=== PATIENT | female | born 1955 | race Caucasian/White ===

== ENCOUNTER 2020-04-02 19:51 | Emergency (ER) | payer BC, SELFPAY ==
[2020-04-02 20:11] VITALS: BP 165/84; PULSE 86; RESP 18; TEMP 36; O2SAT 96; BMI 34.9
[2020-04-02 20:29] VITALS: BP 164/66; PULSE 80; RESP 18; TEMP 36.7; O2SAT 94
--- NOTE | 2020-04-02 20:37 | ED_ITS ---
HPI - Altered Mental Status General Chief Complaint: Altered Mental Status Stated Complaint: high bs Time Seen by Provider: 04/02/20 20:35 Source: patient Mode of arrival: ambulatory Limitations: no limitations History of Present Illness HPI narrative: patient with no known past medical history does not take any me dication pretty healthy otherwise complaining of occipital headache deliver fogginess and had difficulty in getting the words out 2 days ago patient under lot of stress lately. Patient denies any nausea/ vomiting /cough /shortness of breath patient never had headache in the past had poor sleep also MD complaint: confusion Severity: mild Consistency of symptoms: waxing and waning Related Data Home Medications Medication Instructions Recorded Confirmed No Known Home Meds 04/02/20 04/02/20 Allergies Allergy/AdvReac Type Severity Reaction Status Date / Time acetaminophen [Percocet] AdvReac Unknown N/V Verified 04/02/20 20:17 oxycodone [Percocet] AdvReac Unknown N/V Verified 04/02/20 20:17 Review of Systems Review of Systems: REVIEW OF SYSTEMS: Pertinent positives and negatives are stated above in the history. GEN: no fevers, chills, fatigue HEENT: no nasal congestion, sore throat, ear pain NEURO: no focal weakness PULM: no cough, shortness of breath CV: no chest pain, palpitations, LE edema ABD: no abdominal pain, nausea, vomiting, diarrhea : no dysuria, urgency, frequency SKIN: no rash ROS otherwise negative x 10 PMFSH Social History Social History Alcohol intake: current Alcohol intake frequency: a few times a week Alcohol type: beer and wine Smoking Status: Light tobacco smoker Smoked in Last 30 Days: Yes Substance Use Type: Marijuana Substance Use Frequency: Socially Last Used Substance: Days (ago) Any prior treatment program specific to substance use: No Advance Directives: No Advance Directives Information Provided: No Physical Exam Vital Signs: Vital Signs: Last Vital Signs Temp 98.1 F 04/02/20 20:29 Pulse 71 04/02/20 22:58 Resp 14 04/02/20 22:58 BP 127/68 04/02/20 22:58 Pulse Ox 95 04/02/20 22:58 Body Mass Index 34.9 VITAL SIGNS: Reviewed. GENERAL: Well developed, well nourished, in no acute distress. HEAD: Normocephalic/atraumatic, EYES: PERRLA No pallor/icterus noted OROPHARYNX: Oral mucosa moist no oral lesions NECK: Supple, no adenopathy LUNGS: Normal breath sounds. No adventitious sounds or accessory muscle use CARDIOVASCULAR: Regular rate and rhythm without noted murmurs, no JVD or lower extremity edema. ABDOMEN: Soft, non-tender, non-distended with normal bowel sounds. No rigidity. No guarding. No palpable masses or hernias noted MUSCULOSKELETAL: No tenderness, deformities, EXTREMITIES: No cyanosis or edema. SKIN: no rashes, ulcerations, jaundice, pallor, or petechiae NEUROLOGIC: Alert and oriented x 3. Strength and sensation to light touch were grossly intact normal speech NIH Stroke Scale Internal: Initial- Upon Arrival Level of Consciousness: Alert Level of Consciousness Questions: Answers both questions correctly Level of Consciousness Commands: Performs both tasks correctly Best Gaze: Normal Visual: No visual loss Facial Palsy: Normal Motor Arm (Right): No drift Motor Arm (Left): No drift Motor Leg (Right): No drift Motor Leg (Left): No drift Limb Ataxia: Absent Sensory: Normal Best Language: No aphasia Dysarthia: Normal Extinction and Inattention: No abnormality Score: 0 MDM - Altered Mental Status MDM Narrative Medical decision making narrative: patient with nonspecific confusion slurring of speech CTA head and neck is negative for any posterior circulation CVA. Her blood workup was also negative patient's symptoms likely from the stress /anxiety patient advised to follow with PCP Medical Records Attestation: I reviewed the patient's medical records. Lab Data Attestation: I reviewed the patient's lab results. Result diagrams: 04/02/20 20:58 04/02/20 20:58 Labs: Lab Results 04/02/20 04/02/20 04/02/20 Range/Units 20:58 20:58 20:58 WBC 7.7 (4.8-10.8) X10*3/uL RBC 4.63 (4.20-5.50) X10*6/uL Hgb 14.5 (12.0-16.0) g/dl Hct 42.5 (37-47) % MCV 91.8 (80-98) fL MCH 31.3 (27.0-33.0) pg MCHC 34.1 (31.0-35.0) g/dl RDW 11.8 (11.0-16.0) % Plt Count 319 (160-400) X10*3/uL MPV 10.0 (9.4-12.3) fL Immature Gran % (Auto) 0.3 (0.0-0.4) % Neut % (Auto) 63.4 (45-73) % Lymph % (Auto) 26.1 (20-40) % [place] % (Auto) 8.4 (2-11) % Eos % (Auto) 1.4 (0-4) % Baso % (Auto) 0.4 (0-2) % Lymph # (Auto) 2.0 (1.2-4.9) X10*3/uL [place] # (Auto) 0.6 (0.1-1.2) X10*3/uL Eos # (Auto) 0.1 (0.0-0.4) X10*3/uL Baso # (Auto) 0.0 (0.0-0.2) X10*3/uL Abs Immat Gran (auto) 0.02 (0.00-0.03) X10*3/uL Absolute Neuts (auto) 4.9 (2.0-8.3) X10*3/uL Absolute Nucleated RBC 0.000 (0.0-0.012) X10*3/uL Nucleated RBC % (auto) 0.0 (0.0-0.2) /100WBC PT 10.9 (10.8-13.0) SEC INR 0.9 (0.9-1.1) Sodium 138 (135-145) mmol/L Potassium 4.0 (3.3-5.1) mmol/l Chloride 104 (96-108) mmol/L Carbon Dioxide 25 (22-29) mmol/L Anion Gap 13 (12-20) BUN 13 (9-16) mg/dL Creatinine 0.77 (0.5-1.4) mg/dL Estim Creat Clear Calc 70.6 Estimated GFR > 60 Random Glucose 175 H (60-115) mg/dL Calcium 8.9 (8.4-10.2) mg/dL Total Bilirubin 0.3 (0.0-1.0) mg/dL Direct Bilirubin 0.2 (0.0-0.5) mg/dL AST 28 (5-31) U/L ALT 34 H (0-31) U/L Alkaline Phosphatase 128 H (39-117) U/L Total Protein 7.2 (6.5-8.0) g/dL Albumin 4.2 (3.5-5.0) g/dL Urine Color Urine Appearance Urine pH (5.0-8.0) Ur Specific [place] (1.005-1.025) Urine Protein (NEG-TRACE) MG/DL Urine Glucose (UA) (NEG) MG/DL Urine Ketones (NEG) MG/DL Urine Blood (NEG) Urine Nitrite (NEG) Ur Leukocyte Esterase (NEG) Urine RBC (0) /HPF Urine WBC (0-4) /HPF Ur Squamous Epith Cells /LPF Urine Bacteria /LPF 04/02/20 Range/Units 22:53 WBC (4.8-10.8) X10*3/uL RBC (4.20-5.50) X10*6/uL Hgb (12.0-16.0) g/dl Hct (37-47) % MCV (80-98) fL MCH (27.0-33.0) pg MCHC (31.0-35.0) g/dl RDW (11.0-16.0) % Plt Count (160-400) X10*3/uL MPV (9.4-12.3) fL Immature Gran % (Auto) (0.0-0.4) % Neut % (Auto) (45-73) % Lymph % (Auto) (20-40) % [place] % (Auto) (2-11) % Eos % (Auto) (0-4) % Baso % (Auto) (0-2) % Lymph # (Auto) (1.2-4.9) X10*3/uL [place] # (Auto) (0.1-1.2) X10*3/uL Eos # (Auto) (0.0-0.4) X10*3/uL Baso # (Auto) (0.0-0.2) X10*3/uL Abs Immat Gran (auto) (0.00-0.03) X10*3/uL Absolute Neuts (auto) (2.0-8.3) X10*3/uL Absolute Nucleated RBC (0.0-0.012) X10*3/uL Nucleated RBC % (auto) (0.0-0.2) /100WBC PT (10.8-13.0) SEC INR (0.9-1.1) Sodium (135-145) mmol/L Potassium (3.3-5.1) mmol/l Chloride (96-108) mmol/L Carbon Dioxide (22-29) mmol/L Anion Gap (12-20) BUN (9-16) mg/dL Creatinine (0.5-1.4) mg/dL Estim Creat Clear Calc Estimated GFR Random Glucose (60-115) mg/dL Calcium (8.4-10.2) mg/dL Total Bilirubin (0.0-1.0) mg/dL Direct Bilirubin (0.0-0.5) mg/dL AST (5-31) U/L ALT (0-31) U/L Alkaline Phosphatase (39-117) U/L Total Protein (6.5-8.0) g/dL Albumin (3.5-5.0) g/dL Urine Color YELLOW Urine Appearance CLEAR Urine pH 5.5 (5.0-8.0) Ur Specific [place] <= 1.005 (1.005-1.025) Urine Protein NEG (NEG-TRACE) MG/DL Urine Glucose (UA) NEG (NEG) MG/DL Urine Ketones NEG (NEG) MG/DL Urine Blood 1+ H (NEG) Urine Nitrite NEG (NEG) Ur Leukocyte Esterase NEG (NEG) Urine RBC 0-2 (0) /HPF Urine WBC 0 (0-4) /HPF Ur Squamous Epith Cells 1+ /LPF Urine Bacteria TRACE /LPF Discharge Plan Discharge Clinical Impression: Anxiety Headache Qualifiers: Headache type: tension-type Headache chronicity pattern: acute headache Intractability: not intractable Qualified Code(s): G44.209 - Tension-type headache, unspecified, not intractable Patient Disposition: Home, Self-Care Instructions: Acute Headache (ED), Anxiety (ED) Additional Instructions: at this time etiology of headache is not very clear likely from stress. Relax take Tylenol for headaches follow with PCP Prescriptions: No Action No Known Home Meds RF: 0
--- NOTE | 2020-04-02 20:38 | ECG_ITS ---
Test Reason : WEAKNESS Blood Pressure : / mmHG Vent. Rate : 077 BPM Atrial Rate : 077 BPM P-R Int : 148 ms QRS Dur : 082 ms QT Int : 402 ms P-R-T Axes : 066 072 044 degrees QTc Int : 454 ms Normal sinus rhythm Normal ECG No previous ECGs available Referred By: Rohan Chang Electronically Signed By:NIMCO SANTANA
--- NOTE | 2020-04-02 20:45 | CT_ITS ---
EXAMINATION: CT ANGIOGRAM HEAD CT ANGIOGRAM NECK CLINICAL INFORMATION: Dizziness. COMPARISON: None available. TECHNIQUE: Initial noncontrast beeswax bleacher imaging of the head and neck was performed. Noncontrast head CT was also performed. Test bolus sequences followed by intravenous administration 70 mL of Omnipaque 350. Helical imaging was performed in the axial plane from the aortic arch to the skull vertex. Delayed postcontrast imaging of the head was also performed. The data was processed at the histotechnologist supervisor's workstation for generation of MIP sequences. Angled MIPs and volume rendered reformatted images were also generated at an offline 3D workstation. Stenoses are assessed in accordance with NASCET criteria unless otherwise indicated. DLP: 2170 mGy-cm FINDINGS: CT Head: There is no evidence of acute intracranial hemorrhage or edematous territorial infarction. A few foci of hypoattenuation in the periventricular and deep white matter are consistent with mild microangiopathy. [place]-white matter differentiation is preserved. Proportional prominence of the ventricles and sulcal spaces. No evidence for obstructive hydrocephalus. No abnormal mass effect or midline shift. No extra-axial fluid collections. No pathologic intra-axial enhancement or regional oligemia. No acute soft tissue or osseous abnormalities. The mastoid air cells and paranasal sinuses are clear. CT Neck: The thyroid gland and remaining cervical soft tissues are within normal limits. C2-C3 appear congenitally partially fused. Instrumented anterior fusion of C5-C6. Advanced degenerative disc disease at C6-C7 with prominent disc-osteophyte complex. Mild degenerative anterolisthesis of C3 on C4. Moderate multilevel facet and uncovertebral joint arthropathy leads to osseous encroachment on the neural foramina from C3-T1. CT Upper Chest: The visualized lung apices and upper mediastinum are within normal limits. Neck CTA: Aortic Arch: Normal contour and caliber. Classic 3 vessel branching pattern of the aortic arch. Great Vessel Origins: No significant stenosis of the branch origins. Right Common Carotid Artery: Normal opacification without focal stenosis or occlusion. Cervical Right Internal Carotid Artery: Normal opacification without focal stenosis or occlusion. Left Common Carotid Artery: Normal opacification without focal stenosis or occlusion. Cervical Left Internal Carotid Artery: Normal opacification without focal stenosis or occlusion. Cervical Right Vertebral Artery: Mildly dominant. Normal opacification without focal stenosis or occlusion. Cervical Left Vertebral Artery: Normal opacification without focal stenosis or occlusion. Brain CTA: Intracranial Internal Carotid Arteries: Normal contrast opacification of the petrous, cavernous, paraophthalmic, and supraclinoid segments of the internal carotid arteries without focal stenosis. Right Anterior Cerebral Artery: Normal A1 segment. Normal opacification of the distal segments of the ROJAS. Left Anterior Cerebral Artery: Normal A1 segment. Normal opacification of the distal segments of the ROJAS. Anterior Communicating Artery: Normal. Right Middle Cerebral Artery: Normal opacification of the M1 segment of the MCA without focal stenosis or occlusion. Normal arborization of the distal segments. Left Middle Cerebral Artery: Normal opacification of the M1 segment of the MCA without focal stenosis or occlusion. Normal arborization of the distal segments. Right Vertebral Artery: The V4 segment is mildly diminutive. Otherwise, normal opacification. Normal opacification of the proximal segments of the posterior inferior cerebellar artery. Left Vertebral Artery: The V4 segment is mildly diminutive. Otherwise, normal opacification. Normal opacification of the proximal segments of the posterior inferior cerebellar artery. Basilar Artery: The basilar artery is moderately diminutive throughout its course without focal occlusion. Normal appearance of the proximal superior cerebellar arteries. Right Posterior Cerebral Artery: The P1 segment is diminutive. origin of the MIMEOGRAPH OPERATOR with robust opacification of the posterior communicating artery. Normal opacification of the distal segments of the MIMEOGRAPH OPERATOR. Left Posterior Cerebral Artery: The P1 segment is diminutive. origin of the MIMEOGRAPH OPERATOR with robust opacification of the posterior communicating artery. Normal opacification of the distal segments of the MIMEOGRAPH OPERATOR. Dominant right-sided transverse/sigmoid sinus. Otherwise, normal opacification of the superior sagittal, straight, transverse, and sigmoid sinuses. CT/CT angio head neck IMPRESSION: 1. No evidence of acute intracranial hemorrhage or edematous territorial infarction. 2. CTA of the head and neck without proximal occlusion or flow-limiting stenosis. 3. origins of the bilateral support merchandiser. In this setting, the intracranial vertebrobasilar system is relatively diminutive in nature. However, there is no demonstrated focal occlusion are regions of oligemia on this exam. 4. 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
--- NOTE | 2020-04-02 20:45 | PC.NURSE ---
dr guerra at bedside plan is for a head ct. pt mcwilliams no weakness noted, darcie equal. pt placed on the monitor nsr at this time. pt talking in clear sentences, pt states she does feel nervouse being in the hospital. pt words are clear. hand grasp equal darcie.
--- NOTE | 2020-04-02 20:56 | PC.NURSE ---
20 l ac with no complications. rainbow labs drawn.
[2020-04-02 21:07] LABS: MANUAL DIFF FLAG NO
[2020-04-02 21:09] LABS: Basophils Percent Auto 0.4 % (0-2); Eosinophils Absolute Auto 0.1 X10*3/uL (0.0-0.4); Eosinophils Percent Auto 1.4 % (0-4); Hematocrit 42.5 % (37-47); Hemoglobin 14.5 g/dl (12.0-16.0); Imm Gran Abs Auto 0.02 X10*3/uL (0.00-0.03); Imm Gran Pct Auto 0.3 % (0.0-0.4); Lymphocytes Percent Auto 26.1 % (20-40); Mean Corpuscular HGB Conc 34.1 g/dl (31.0-35.0); Mean Corpuscular Hemoglobin 31.3 pg (27.0-33.0); Mean Corpuscular Volume 91.8 fL (80-98); Monocytes Absolute Auto 0.6 X10*3/uL (0.1-1.2); Monocytes Percent Auto 8.4 % (2-11); Neutrophils Absolute Auto 4.9 X10*3/uL (2.0-8.3); Neutrophils Percent Auto 63.4 % (45-73); Platelet Count 319 X10*3/uL (160-400); Red Blood Count 4.63 X10*6/uL (4.20-5.50); Red Cell Distribution Width 11.8 % (11.0-16.0); White Blood Count 7.7 X10*3/uL (4.8-10.8)
[2020-04-02 21:16] LABS: INTERNATIONAL NORM RATIO 0.9 (0.9-1.1); Prothrombin Time 10.9 SEC (10.8-13.0)
[2020-04-02] MEDS: iohexoL 350 MG/ML 100 ML INFUS..BTL IV (21:21)
[2020-04-02 21:24] VITALS: BP 162/85; PULSE 75; RESP 16; O2SAT 96
--- NOTE | 2020-04-02 21:25 | PC.NURSE ---
pt neuro remain intact equal darcie movements, speach clear and alert and oriented x3. pt able to recall these 4 words with no difficulty, dog, cat, mouse, ocean. ekg being done at this time.
[2020-04-02 21:48] LABS: Alanine Aminotransferase 34 U/L (0-31); Albumin Level 4.2 g/dL (3.5-5.0); Alkaline Phosphatase 128 U/L (39-117); Anion Gap 13 (12-20); Aspartate Amino Transferase 28 U/L (5-31); Bilirubin Direct 0.2 mg/dL (0.0-0.5); Bilirubin Total 0.3 mg/dL (0.0-1.0); Blood Urea Nitrogen 13 mg/dL (9-16); Calcium 8.9 mg/dL (8.4-10.2); Carbon Dioxide 25 mmol/L (22-29); Chloride 104 mmol/L (96-108); Creatinine Clr Calc Pharmacy 70.6; Estimated Glomerular Filt Rate > 60; Glucose Random 175 mg/dL (60-115); Sodium 138 mmol/L (135-145); Total Protein 7.2 g/dL (6.5-8.0)
[2020-04-02 22:58] VITALS: BP 127/68; PULSE 71; RESP 14; O2SAT 95
[2020-04-02 23:00] LABS: Glucose Urine UA NEG (NEG); Leukocyte Esterase Urine NEG (NEG); Nitrite Urine NEG (NEG); PH 5.5 (5.0-8.0); Specific Gravity - Urine <= 1.005 (1.005-1.025); Urine Blood 1+ (NEG); Urine Ketones NEG (NEG); Urine Protein NEG (NEG-TRACE)
[2020-04-02 23:02] LABS: Appearance Urine CLEAR; Color Urine YELLOW
[2020-04-02 23:06] LABS: Bacteria Urine TRACE /LPF; RBC Urine 0-2 /HPF (0); Squamous Epithelial Cell Urine 1+ /LPF; WBC Urine 0 /HPF (0-4)
== END 2020-04-02 23:22 | disposition home or self-care (01) ==
PROVIDERS: Emergency Provider Internal Medicine; PCP Internal Medicine
DX: G44.209 Tension-type headache, unspecified, not intractable (principal); R41.82 Altered mental status, unspecified; F12.90 Cannabis use, unspecified, uncomplicated; F41.1 Generalized anxiety disorder; F43.0 Acute stress reaction; F17.200 Nicotine dependence, unspecified, uncomplicated; Z71.6 Tobacco abuse counseling
CPT/HCPCS: 36415; 70496; 70498; 80048; 80076; 81001; 85025; 85610; 93005; 99284; Q9967

== ENCOUNTER 2020-12-24 09:53 | Outpatient (REF) | payer MEDICARE, SELFPAY ==
[2020-12-24 11:23] LABS: MANUAL DIFF FLAG NO
[2020-12-24 11:41] LABS: Basophils Percent Auto 0.5 % (0-2); Eosinophils Absolute Auto 0.1 X10*3/uL (0.0-0.4); Eosinophils Percent Auto 1.6 % (0-4); Hematocrit 44.2 % (37-47); Hemoglobin 14.6 g/dl (12.0-16.0); Imm Gran Abs Auto 0.02 X10*3/uL (0.00-0.03); Imm Gran Pct Auto 0.3 % (0.0-0.4); Lymphocytes Absolute Auto 2.3 X10*3/uL (1.2-4.9); Lymphocytes Percent Auto 30.3 % (20-40); Mean Corpuscular Hemoglobin 30.6 pg (27.0-33.0); Mean Corpuscular Volume 92.7 fL (80-98); Mean Platelet Volume 10.5 fL (9.4-12.3); Monocytes Absolute Auto 0.6 X10*3/uL (0.1-1.2); Monocytes Percent Auto 7.6 % (2-11); Neutrophils Absolute Auto 4.6 X10*3/uL (2.0-8.3); Neutrophils Percent Auto 59.7 % (45-73); Platelet Count 377 X10*3/uL (160-400); Red Blood Count 4.77 X10*6/uL (4.20-5.50); Red Cell Distribution Width 11.9 % (11.0-16.0); White Blood Count 7.6 X10*3/uL (4.8-10.8)
[2020-12-24 12:21] LABS: TSH reflex Free T4 1.15 uIU/mL (0.32-4.0)
[2020-12-24 12:48] LABS: Alanine Aminotransferase 38 U/L (0-31); Albumin Level 4.5 g/dL (3.5-5.0); Alkaline Phosphatase 138 U/L (39-117); Anion Gap 14 (12-20); Aspartate Amino Transferase 22 U/L (5-31); Bilirubin Total 0.8 mg/dL (0.0-1.0); Blood Urea Nitrogen 13 mg/dL (9-16); Calcium 9.8 mg/dL (8.4-10.2); Carbon Dioxide 25 mmol/L (22-29); Chloride 104 mmol/L (96-108); Cholesterol 240 mg/dL; Estimated Glomerular Filt Rate > 60; Glucose Fasting 101 mg/dL (60-99); HDL Cholesterol 62 mg/dL; LDL Cholesterol Calculated 141 mg/dl; Potassium 4.5 mmol/L (3.3-5.1); Sodium 138 mmol/L (135-145); Total Protein 7.8 g/dL (6.5-8.0); Triglycerides 186 mg/dL
== END 2020-12-24 09:54 | disposition home or self-care (01) ==
LOC: HO.HMGCLDS 09:53
PROVIDERS: PCP Internal Medicine; Visit Provider Internal Medicine
DX: Z00.01 Encounter for general adult medical examination with abnormal findings (principal); E66.09 Other obesity due to excess calories; F41.1 Generalized anxiety disorder
CPT/HCPCS: 36415; 80053; 80061; 84443; 85025

== ENCOUNTER 2021-01-02 08:26 | Outpatient (REF) | payer MEDICARE, SELFPAY ==
--- NOTE | ~2021-01-02 | US_ITS ---
EXAMINATION: US ABDOMEN COMPLETE CLINICAL INFORMATION: Elevated LFTs. COMPARISON: None TECHNIQUE: Real-time imaging of the abdominal viscera. FINDINGS: PANCREAS: Head and body the pancreas is normal-appearing. The tail is not well visualized due to bowel gas. ABDOMINAL AORTA: The proximal, mid, and distal segments are normal in caliber. INFERIOR VENA CAVA: Visualized portions are normal. LIVER: The liver is normal in size. The liver contour is normal. Liver echotexture is increased. No focal hepatic lesion. There is no intrahepatic biliary duct dilatation seen. GALLBLADDER: Normal. The gallbladder is physiologically distended without evidence of stones, sludge, polyps, wall thickening or pericholecystic fluid. COMMON BILE DUCT: Normal in caliber measuring 0.5 cm in diameter. RIGHT KIDNEY: There are 2 cysts measuring 5 x 4 x 5 cm in the upper pole and 1.5 x 1.5 x 1.7 cm in the midpole. No hydronephrosis or renal calculi. The kidney measures 11.4 cm in maximum dimension. LEFT KIDNEY: There are 3 left renal cysts. There is a simple cyst measuring 1.7 cm in the upper pole. There is a slightly complex cyst with single thin septation measuring 1.3 x 2 x 1.2 cm in the upper pole. There is a 1 x 0.9 x 0.7 cm cyst with focus of wall calcification in the midpole. No hydronephrosis or renal calculi. The kidney measures 10.4 cm in maximum dimension. SPLEEN: Normal. The spleen measures 9.3 cm in maximum dimension. FREE FLUID: None. US/US abdomen complete IMPRESSION: Echogenic liver probably representing fatty infiltration. Bilateral renal cysts. Limited visualization of the tail of the pancreas.
== END 2021-01-02 08:27 | disposition home or self-care (01) ==
LOC: HO.HMGCX 08:26
PROVIDERS: PCP Internal Medicine; Visit Provider Internal Medicine
DX: R79.89 Other specified abnormal findings of blood chemistry (principal)
CPT/HCPCS: 76700

== ENCOUNTER 2021-02-03 07:36 | Outpatient (REF) | payer MEDICARE, SELFPAY ==
--- NOTE | ~2021-02-03 | MM_ITS ---
EXAMINATION: MM SCREENING DIGITAL BREAST TOMOSYNTHESIS, BILATERAL CLINICAL INFORMATION: Screening. Asymptomatic. The lifetime risk of breast cancer based on the Tyrer-Cuzick Model is 4%. COMPARISON: Mammography: 01/13/2017, 03/15/2015; outside mammography 01/19/2011 ([facility]). TECHNIQUE: Digital breast tomosynthesis is performed in both the craniocaudal and mediolateral oblique views along with computer-aided detection (CAD). Synthesized 2D images are generated from the tomosynthesis. FINDINGS: There are scattered areas of fibroglandular density (ACR BI-RADS breast composition Category b). Parenchymal pattern is similar to prior studies. There is no developing density or interval mass or architectural abnormality. No abnormal calcifications. The axilla are unremarkable. The right MLO view has a small dermal lesion with some overlying calcifications posterior outer breast, sharda slice 72/72, similar to prior exam 2017. MM/MM tomosynthesis screening BI IMPRESSION: 1. No mammographic evidence of malignancy. 2. Dermal lesion overlying posterior outer right breast. ASSESSMENT: BI-RADS 2: Benign RECOMMENDATION: Routine annual mammography screening. This patient's information was entered into a reminder system with a target due date for their next mammogram.
== END 2021-02-03 07:37 | disposition home or self-care (01) ==
LOC: HO.MAMMO 07:36
PROVIDERS: Visit Provider Internal Medicine
DX: Z12.31 Encounter for screening mammogram for malignant neoplasm of breast (principal)
CPT/HCPCS: 77063; 77067

== ENCOUNTER 2021-02-24 08:32 | Outpatient (REF) | payer MEDICARE, SELFPAY ==
[2021-02-26 13:30] LABS: HPV mRNA E6/E7 rflx Not Detected (Not Detected)
== END 2021-02-24 08:33 | disposition home or self-care (01) ==
LOC: HO.LAB 08:32
PROVIDERS: PCP Internal Medicine; Visit Provider Advanced Practice Midwife
DX: Z01.419 Encounter for gynecological examination (general) (routine) without abnormal findings (principal); Z11.51 Encounter for screening for human papillomavirus (HPV)
CPT/HCPCS: 87624; 88142

== ENCOUNTER 2022-01-15 07:27 | Outpatient (REF) | payer MEDICARE, SELFPAY ==
[2022-01-15 11:13] LABS: MANUAL DIFF FLAG NO
[2022-01-15 11:24] LABS: Basophils Percent Auto 0.6 % (0-2); Eosinophils Absolute Auto 0.1 X10*3/uL (0.0-0.4); Hematocrit 43.2 % (37.0-47.0); Hemoglobin 14.4 g/dl (12.0-16.0); Imm Gran Abs Auto 0.02 X10*3/uL (0.00-0.03); Imm Gran Pct Auto 0.3 % (0.0-0.4); Lymphocytes Absolute Auto 1.8 X10*3/uL (1.2-4.9); Lymphocytes Percent Auto 28.4 % (20-40); Mean Corpuscular HGB Conc 33.3 g/dl (31.0-35.0); Mean Corpuscular Volume 93.1 fL (80.0-98.0); Mean Platelet Volume 10.7 fL (9.4-12.3); Monocytes Absolute Auto 0.7 X10*3/uL (0.1-1.2); Neutrophils Absolute Auto 3.8 x10*3/uL (2.0-8.3); Neutrophils Percent Auto 58.7 % (45-73); Platelet Count 358 X10*3/uL (160-400); Red Blood Count 4.64 X10*6/uL (4.20-5.50); Red Cell Distribution Width 11.9 % (11.0-16.0); White Blood Count 6.5 X10*3/uL (4.8-10.8)
[2022-01-15 11:30] LABS: Estimated Average Glucose 157 mg/dL; Hemoglobin A1c % 7.1 %
[2022-01-15 11:46] LABS: Alanine Aminotransferase 37 U/L (0-31); Albumin Level 4.5 g/dL (3.5-5.0); Alkaline Phosphatase 120 U/L (39-117); Anion Gap 15 (12-20); Aspartate Amino Transferase 36 U/L (5-31); Bilirubin Total 0.5 mg/dL (0.0-1.0); Blood Urea Nitrogen 12 mg/dL (9-16); Calcium 9.6 mg/dL (8.4-10.2); Carbon Dioxide 25 mmol/L (22-29); Chloride 102 mmol/L (96-108); Cholesterol 241 mg/dL; Estimated Glomerular Filt Rate > 60; Glucose Fasting 149 mg/dL (60-99); HDL Cholesterol 58 mg/dL; LDL Cholesterol Calculated 135 mg/dl; Potassium 4.3 mmol/L (3.3-5.1); Sodium 138 mmol/L (135-145); Total Protein 7.7 g/dL (6.5-8.0); Triglycerides 242 mg/dL
[2022-01-15 12:09] LABS: TSH reflex Free T4 1.83 uIU/mL (0.32-4.0)
== END 2022-01-15 07:28 | disposition home or self-care (01) ==
LOC: HO.HMGCLDS 07:27
PROVIDERS: PCP Internal Medicine; Visit Provider Internal Medicine
DX: Z00.01 Encounter for general adult medical examination with abnormal findings (principal); E66.09 Other obesity due to excess calories; R73.01 Impaired fasting glucose; R79.89 Other specified abnormal findings of blood chemistry
CPT/HCPCS: 36415; 80053; 80061; 83036; 84443; 85025

== ENCOUNTER 2022-02-10 07:14 | Outpatient (REF) | payer MEDICARE, SELFPAY ==
--- NOTE | ~2022-02-10 | MM_ITS ---
EXAMINATION: MM SCREENING DIGITAL BREAST TOMOSYNTHESIS, BILATERAL CLINICAL INFORMATION: Screening. Asymptomatic. The lifetime risk of breast cancer based on the Tyrer-Cuzick Model is 6%. COMPARISON: Mammography: 02/03/2021, 01/13/2017, 03/15/2015 TECHNIQUE: Digital breast tomosynthesis is performed in both the craniocaudal and mediolateral oblique views along with computer-aided detection (CAD). Synthesized 2D images are generated from the tomosynthesis. FINDINGS: There are scattered areas of fibroglandular density (ACR BI-RADS breast composition Category b). There are no significant masses, abnormal calcifications, or other abnormalities. There is a dermal lesion again noted posterior outer right breast. The parenchymal pattern is similar to prior studies. No significant changes. MM/MM tomosynthesis screening BI IMPRESSION: No mammographic evidence of malignancy. ASSESSMENT: BI-RADS 2: Benign RECOMMENDATION: Routine annual mammography screening. This patient's information was entered into a reminder system with a target due date for their next mammogram.
== END 2022-02-10 07:15 | disposition home or self-care (01) ==
LOC: HO.MAMMO 07:14
PROVIDERS: PCP Internal Medicine; Visit Provider Internal Medicine
DX: Z12.31 Encounter for screening mammogram for malignant neoplasm of breast (principal)
CPT/HCPCS: 77063; 77067

== ENCOUNTER 2022-05-11 11:23 | Outpatient (REF) | payer MEDICARE, SELFPAY ==
[2022-05-11 14:11] LABS: Estimated Average Glucose 163 mg/dL; Hemoglobin A1c % 7.3 %
[2022-05-11 14:15] LABS: Alanine Aminotransferase 22 U/L (0-31); Albumin Level 4.2 g/dL (3.5-5.0); Alkaline Phosphatase 102 U/L (39-117); Anion Gap 13 (12-20); Aspartate Amino Transferase 22 U/L (5-31); Bilirubin Total 0.5 mg/dL (0.0-1.0); Blood Urea Nitrogen 13 mg/dL (9-16); Calcium 10.3 mg/dL (8.4-10.2); Carbon Dioxide 26 mmol/L (22-29); Chloride 105 mmol/L (96-108); Estimated Glomerular Filt Rate > 60; Glucose Random 137 mg/dL (60-115); Potassium 4.4 mmol/L (3.3-5.1); Sodium 140 mmol/L (135-145); Total Protein 7.2 g/dL (6.5-8.0)
[2022-05-11 14:35] LABS: Creatinine Urine 111.08 mg/dL; Microalbum/Creatinine Ratio Ur 11.7 ug/mg cr
== END 2022-05-11 11:24 | disposition home or self-care (01) ==
LOC: HO.HMGCLDS 11:23
PROVIDERS: PCP Internal Medicine; Visit Provider Internal Medicine
DX: E11.9 Type 2 diabetes mellitus without complications (principal); R79.89 Other specified abnormal findings of blood chemistry
CPT/HCPCS: 36415; 80053; 82043; 83036

== ENCOUNTER 2022-08-21 06:35 | Outpatient (REF) | payer MEDICARE, SELFPAY ==
[2022-08-21 11:59] LABS: Hematocrit 44.4 % (37.0-47.0); Hemoglobin 14.3 g/dl (12.0-16.0)
[2022-08-21 12:32] LABS: Alanine Aminotransferase 20 U/L (0-31); Albumin Level 4.3 g/dL (3.5-5.0); Alkaline Phosphatase 108 U/L (39-117); Anion Gap 12 (12-20); Aspartate Amino Transferase 20 U/L (5-31); Bilirubin Total 0.5 mg/dL (0.0-1.0); Blood Urea Nitrogen 14 mg/dL (9-16); Calcium 9.6 mg/dL (8.4-10.2); Carbon Dioxide 29 mmol/L (22-29); Chloride 105 mmol/L (96-108); Estimated Glomerular Filt Rate > 60; Glucose Random 138 mg/dL (60-115); Potassium 4.7 mmol/L (3.3-5.1); Sodium 141 mmol/L (135-145); Total Protein 7.2 g/dL (6.5-8.0)
[2022-08-22 03:37] LABS: Estimated Average Glucose 140 mg/dL; Hemoglobin A1c % 6.5 %
== END 2022-08-21 06:36 | disposition home or self-care (01) ==
LOC: HO.HMGCLDS 06:35
PROVIDERS: PCP Internal Medicine; Visit Provider Internal Medicine
DX: E11.9 Type 2 diabetes mellitus without complications (principal)
CPT/HCPCS: 36415; 80053; 83036; 85014; 85018

== ENCOUNTER 2023-02-15 07:16 | Outpatient (REF) | payer MEDICARE, SELFPAY ==
--- NOTE | ~2023-02-15 | MM_ITS ---
EXAMINATION: MM SCREENING DIGITAL BREAST TOMOSYNTHESIS, BILATERAL CLINICAL INFORMATION: Screening. Asymptomatic. COMPARISON: Mammography: This study is compared with prior exams dating back to 2017. TECHNIQUE: Digital breast tomosynthesis is performed in both the craniocaudal and mediolateral oblique views along with computer-aided detection (CAD). Synthesized 2D images are generated from the tomosynthesis. FINDINGS: The breasts are almost entirely fatty (ACR BI-RADS breast composition Category a). There are no significant masses, abnormal calcifications, or other abnormalities. MM/MM tomosynthesis screening BI IMPRESSION: No mammographic evidence of malignancy. ASSESSMENT: BI-RADS BI-RADS 1 - Negative RECOMMENDATION: Routine annual mammography screening. 1 year F/U This examination should not preclude the clinical evaluation of a suspicious palpable abnormality. This patient's information was entered into a reminder system with a target due date for their next mammogram.
== END 2023-02-15 07:17 | disposition home or self-care (01) ==
LOC: HO.MAMMO 07:16
PROVIDERS: PCP Internal Medicine; Visit Provider Internal Medicine
DX: Z12.31 Encounter for screening mammogram for malignant neoplasm of breast (principal)
CPT/HCPCS: 77063; 77067

== ENCOUNTER → 2023-02-15 07:30 | Outpatient (BNV) | payer MEDICARE, SELFPAY | PROVIDERS: PCP Internal Medicine; Visit Provider Radiology Diagnostic Radiology | DX: Z12.31 Encounter for screening mammogram for malignant neoplasm of breast (principal) | CPT/HCPCS: 77063; 77067 ==

== ENCOUNTER 2023-02-18 06:17 | Outpatient (REF) | payer MEDICARE, SELFPAY ==
[2023-02-18 11:46] LABS: MANUAL DIFF FLAG NO
[2023-02-18 11:51] LABS: Basophils Percent Auto 0.7 % (0-2); Eosinophils Absolute Auto 0.1 X10*3/uL (0.0-0.4); Eosinophils Percent Auto 2.3 % (0-4); Hematocrit 43.7 % (37.0-47.0); Hemoglobin 14.4 g/dl (12.0-16.0); Imm Gran Abs Auto 0.01 X10*3/uL (0.00-0.03); Imm Gran Pct Auto 0.2 % (0.0-0.4); Lymphocytes Absolute Auto 2.4 X10*3/uL (1.2-4.9); Lymphocytes Percent Auto 41.8 % (20-40); Mean Corpuscular Hemoglobin 30.9 pg (27.0-33.0); Mean Corpuscular Volume 93.8 fL (80.0-98.0); Mean Platelet Volume 10.9 fL (9.4-12.3); Monocytes Absolute Auto 0.5 X10*3/uL (0.1-1.2); Neutrophils Absolute Auto 2.7 x10*3/uL (2.0-8.3); Platelet Count 344 X10*3/uL (160-400); Red Blood Count 4.66 X10*6/uL (4.20-5.50); Red Cell Distribution Width 11.8 % (11.0-16.0); White Blood Count 5.8 X10*3/uL (4.8-10.8)
[2023-02-18 12:01] LABS: Estimated Average Glucose 137 mg/dL; Hemoglobin A1c % 6.4 % (<6.0)
[2023-02-18 12:04] LABS: Alanine Aminotransferase 19 U/L (0-31); Albumin Level 4.3 g/dL (3.5-5.0); Alkaline Phosphatase 94 U/L (39-117); Anion Gap 14 (12-20); Aspartate Amino Transferase 20 U/L (5-31); Bilirubin Total 0.5 mg/dL (0.0-1.0); Blood Urea Nitrogen 14 mg/dL (9-16); Calcium 9.6 mg/dL (8.4-10.2); Carbon Dioxide 26 mmol/L (22-29); Chloride 105 mmol/L (96-108); Estimated Glomerular Filt Rate > 60; Glucose Random 130 mg/dL (60-115); Potassium 4.8 mmol/L (3.3-5.1); Sodium 140 mmol/L (135-145); Total Protein 7.6 g/dL (6.5-8.0)
[2023-02-18 12:19] LABS: Creatinine Urine 141.39 mg/dL
[2023-02-19 19:28] LABS: LDL Cholesterol Direct 149 mg/dL (<100)
== END 2023-02-18 06:18 | disposition home or self-care (01) ==
LOC: HO.HMGCLDS 06:17
PROVIDERS: PCP Internal Medicine; Visit Provider Internal Medicine
DX: E11.9 Type 2 diabetes mellitus without complications (principal); E66.09 Other obesity due to excess calories; R79.89 Other specified abnormal findings of blood chemistry
CPT/HCPCS: 36415; 80053; 82043; 82570; 83036; 83721; 85025

== ENCOUNTER 2023-03-02 09:20 | Outpatient (AMB) | payer MEDICARE, SELFPAY ==
[2023-03-02 09:32] VITALS: BP 142/86; PULSE 91; O2SAT 96; BMI 33.1
--- NOTE | 2023-03-02 09:32 | MHC.PC.OV ---
Vital Signs 03/02/23 09:32 Height 5 ft 1 in Weight 175 lb BMI 33.1 BP 142/86 H Blood Pressure Location Rt brachial Position Sitting Pulse 91 Pulse Source Pulse Oximeter Pulse Oximetry (%) 96 Oxygen Delivery Method Room Air Intake Visit Reasons: 6m follow up Allergies acetaminophen [Percocet] Adverse Reaction (Unknown, Verified 03/02/23 09:32) N/V oxycodone [Percocet] Adverse Reaction (Unknown, Verified 03/02/23 09:32) N/V Medication List - Last Reconciled 03/02/23 by Carlos Huston MD blood sugar diagnostic ([employer] Ultra Test strips) Use to check fasting blood sugar daily blood-glucose meter ([employer] Ultra2 Meter) Use to check fasting blood sugar daily lancets (SapeTouch Delica Lancets) use to check fasting blood sugar daily Tobacco use date assessed: 03/02/23 Fall risk assessment: No Falls in past year Last assessed Fall Risk: 03/02/23 Dental Screening Dental Screen Date: 03/02/23 Did you have a dental visit in the last 12 months?: No Did you have a dental problem in the last 6 months where you did not have access to dental care?: No Was dental information given to patient?: No HPI 6m follow up HPI Details Patient is a 67-year-old female came in today for her regular follow-up appointment Patient is diabetic, diet controlled, recent hemoglobin A1c was 6.4% Her LDL is 149, patient says that it is because of her diet She had a consultation with the dietitian as patient have gluten sensitivity. Patient says that she was told it is because of the food choices She continued to have tachycardia, we did the EKG today which showed Normal sinus rhythm 78 beats per minute possible left atrial enlargement Echocardiogram ordered to further evaluate Blood pressure is elevated today, Patient tells me that she has been in [place] attending bedding this past weekend And she had lot of alcohol. BMI is elevated at 33.1 need to lose weight Follow-up 6 months or early depending on echo report [facility] Medical History Prediabetes Surgical History History of tooth extraction Hx of fusion of cervical spine History of bilateral tubal ligation Family History Father History of heart attack 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 Mother 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 Stroke Brother TIA (transient ischemic attack) Maternal Grandfather No problems noted. Maternal Grandmother No problems noted. Paternal Grandfather No problems noted. Paternal Grandmother No problems noted. Brother No problems noted. Brother No problems noted. Brother No problems noted. Son No problems noted. Daughter No problems noted. Sister Melanoma Sister No problems noted. Sister No problems noted. Sister No problems noted. Sister No problems noted. Other Mental health disorder Social History Housing: House Alcohol intake: current Alcohol intake frequency: a few times a week Alcohol type: beer and wine Patient Tobacco Use Status: Former Tobacco user Quit Date: Two months ago e-Cigarette/Vaping Use: Never Used Second Hand Smoke Exposure: No Substance Use Type: Marijuana service: No Current occupational status: retired Cognitive needs: No Hearing needs: No Vision needs: Yes (GLASSES) Questionnaire PHQ-9 Over the last 2 weeks, how often have you been bothered by any of the following problems? 1. Little interest or pleasure in doing things: not at all 2. Feeling down, depressed, or hopeless: not at all 3. Trouble falling or staying asleep, or sleeping too much: not at all 4. Feeling tired or having little energy: not at all 5. Poor appetite or overeating: not at all 6. Feeling bad about yourself - or that you are a failure or have let yourself or your family down: not at all 7. Trouble concentrating on things, such as reading the newspaper or watching television: not at all 8. Moving or speaking so slowly that other people could have noticed. Or the opposite - being so fidgety or restless that you have been moving around a lot more than usual: not at all 9. Thoughts that you would be better off or of hurting yourself in some way: not at all Total score: 0 Depression Screening Interpretation: Negative Depression Screening Done: Yes 61666 - PHQ-9 Billing: Yes Source: Developed by Drs. Austin Hastings, Renetta Parsons, Brian Casey and colleagues, with an educational wayne from [employer]. Thrive Questionnaire Date Thrive assessed: 09/01/22 AUDIT C Alcohol Use Questionnaire (AUDIT-C) 1. How often do you have a drink containing alcohol?: Monthly or less 2. How many drinks containing alcohol do you have on a typical day when you are drinking?: 1 or 2 Total Score: 1 ANJELICA-7 AMB Questionnaire ANJELICA-7 Date ANJELICA - 7 assessed: 09/01/22 Source: Developed by Drs. Austin Hastings, Renetta Parsons, Brian Casey and colleagues, with an educational wayne from [employer]. Review of Systems Const Denies chills and Denies fever(s) ENT Denies epistaxis and Denies nasal discharge Card Denies chest pain Resp Denies chest congestion, Denies cough and Denies hemoptysis GI Denies diarrhea and Denies nausea Skin/Breast Denies rash Neuro Reports no additional complaints Psych Reports no additional complaints Endo Reports no additional complaints Physical exam (Primary Care) Vital Signs: Last Vital Signs Pulse 91 03/02/23 09:32 BP 142/86 H 03/02/23 09:32 Pulse Ox 96 03/02/23 09:32 Oxygen Delivery Method Room Air 03/02/23 09:32 BMI result Body Mass Index 33.1 Tobacco/Smoking Status: Tobacco use Status Tobacco use date assessed 03/02/23 03/02/23 09:35 Patient Tobacco Use Status Former Tobacco user 03/02/23 09:35 e-Cigarette/Vaping Use Never Used 03/02/23 09:35 PHQ-9: PHQ-9 Score PHQ-9: Total score 0 03/02/23 09:56 Depression Screening Interpretation: Negative Thrive Assessment: Date of Thrive Assessment Date Thrive assessed 09/01/22 03/02/23 09:35 Const General: cooperative, comfortable and no acute distress Orientation/consciousness: patient oriented x3 HENMT Head: Yes normocephalic Eyes General: appearance normal, both eyes and all related structures Neck Neck: Yes supple Resp Effort & Inspection: normal respiratory effort, no cough and no stridor Cardio Rhythm: regular rhythm Heart sounds: S1 normal heart sound present and S2 normal heart sound present Skin General skin exam: turgor normal Neuro General: patient oriented x3, tone normal and moves all extremities Extrem Right lower extremity: no edema Left lower extremity: no edema Immunizations pneumoc 20-kristy conj-dip cr(PF) 0.5 mL IM syringe Performing Provider: Carlos Huston MD Performing Location: [facility] Administered by: Emily Spence CMA on 03/02/23 09:56 Dose Route Admin Location Dispensed Lot Number Expiration Date NDC Alarm Signaler 0.5 mL IM Left Deltoid 0.5 mL [id number] 12/25/23 0528-9362-25 WYETH/PFIZER VIS Given Date VIS Provided VIS Publication Date 03/02/23 Single Vaccine 21 Eligibility Eligibility Date Funding Source Not VFC Eligible 03/02/23 Private Assessment and Plan Assessment & Plan (1) Tachycardia: Code(s): R00.0 - Tachycardia, unspecified (2) Abnormal EKG: Code(s): R94.31 - Abnormal electrocardiogram [ECG] [EKG] (3) 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: Code(s): E11.9 - Type 2 diabetes mellitus without complications Qualifiers: 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 complication status: without complication 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 long-term insulin use: without intermediate manager use 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 type: type 2 Qualified Code(s): E11.9 - Type 2 diabetes mellitus without complications (4) Elevated blood pressure reading: Code(s): R03.0 - Elevated blood-pressure reading, without diagnosis of hypertension (5) Obesity due to excess calories: Code(s): E66.09 - Other obesity due to excess calories Qualifiers: Obesity classification: adult class 1 (BMI 30 - 34.9) Serious obesity comorbidity presence: with serious comorbidity Body mass index: BMI 33.0-33.9 Qualified Code(s): E66.09 - Other obesity due to excess calories; Z68.33 - Body mass index [BMI] 33.0-33.9, adult Plan Patient is a 67-year-old female came in today for her regular follow-up appointment Patient is diabetic, diet controlled, recent hemoglobin A1c was 6.4% Her LDL is 149, patient says that it is because of her diet She had a consultation with the dietitian as patient have gluten sensitivity. Patient says that she was told it is because of the food choices She continued to have tachycardia, we did the EKG today which showed Normal sinus rhythm 78 beats per minute possible left atrial enlargement Echocardiogram ordered to further evaluate Blood pressure is elevated today, Patient tells me that she has been in [place] attending bedding this past weekend And she had lot of alcohol. BMI is elevated at 33.1 need to lose weight Follow-up 6 months or early depending on echo report Orders: Orders Complete Blood Count Auto Diff 6 Months E11.9 - Type 2 diabetes mellitus without complications, E66.09 - Other obesity due to excess calories Microalbumin, Random (w Creat) 6 Months E11.9 - Type 2 diabetes mellitus without complications, E66.09 - Other obesity due to excess calories CA echo transthoracic complete Today E11.9 - Type 2 diabetes mellitus without complications, R00.0 - Tachycardia, unspecified, R03.0 - Elevated blood-pressure reading, without diagnosis of hypertension, R94.31 - Abnormal electrocardiogram [ECG] [EKG] Hemoglobin A1c 6 Months E11.9 - Type 2 diabetes mellitus without complications, E66.09 - Other obesity due to excess calories Comprehensive [place]. Panel Fast 6 Months E11.9 - Type 2 diabetes mellitus without complications, E66.09 - Other obesity due to excess calories Lipid Panel 6 Months E11.9 - Type 2 diabetes mellitus without complications, E66.09 - Other obesity due to excess calories Pneumococcal 20 Immunization Today Z23 - Encounter for immunization Coding Level of Care Code Est Pt Level 4 (58653) Diagnoses Tachycardia R00.0 Abnormal EKG R94.31 Type 2 diabetes mellitus without complication, without long-term current use of insulin E11.9 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 complication status: without complication 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 intermediate manager insulin use: without long-term use 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 type: type 2 Elevated blood pressure reading R03.0 Class 1 obesity due to excess calories with serious comorbidity and body mass index (BMI) of 33.0 to 33.9 in adult E66.09; Z68.33 Obesity classification: adult class 1 (BMI 30 - 34.9) Serious obesity comorbidity presence: with serious comorbidity Body mass index: BMI 33.0-33.9
== END 2023-03-02 10:02 | disposition home or self-care (01) ==
PROVIDERS: PCP Internal Medicine; Visit Provider Internal Medicine
DX: R00.0 Tachycardia, unspecified (principal); R94.31 Abnormal electrocardiogram [ECG] [EKG]; E11.9 Type 2 diabetes mellitus without complications; R03.0 Elevated blood-pressure reading, without diagnosis of hypertension; E66.09 Other obesity due to excess calories; Z68.33 Body mass index [BMI] 33.0-33.9, adult; Z23 Encounter for immunization
CPT/HCPCS: 90471; 90677; 99214

== ENCOUNTER → 2023-04-02 08:46 | Outpatient (REF) | payer MEDICARE, SELFPAY ==
--- NOTE | 2023-04-02 08:49 | CA_ITS ---
Transthoracic Echocardiogram Patient (Last, First, Middle): Ioana Urrutia, Gender: Female Date of : 1955 Age: 67 Procedure Date: 04/02/2023 Procedure Type: Transthoracic Echocardiogram Location: OP Height: 154.94 cm Weight: 77.11 kg BSA: 1.76 m2 Heart Rate: 82 bpm BP: 145 / 90 mmHg Information Technology Auditor: CHAYITO Referring MD: Carlos Huston MD Symptoms: R94.31 - Abnormal electrocardiogram [ECG] [EKG] Study Quality: Fair ECG Rhythm: Sinus Conclusions: - The left ventricular systolic function is normal. The calculated ejection fraction is 58% by biplane method. - No obvious valvular pathology seen on this study. Findings Left Ventricle Normal left ventricular cavity size. There is normal left ventricular wall thickness. The left ventricular systolic function is normal. The calculated ejection fraction is 58% by biplane method. Diastolic function is normal for age. There is mild septal and mild basal asymmetric hypertrophy. Right Ventricle Normal right ventricular cavity size. There is low normal right ventricular systolic function. Atria Both atria are normal in size. Aortic Valve There is a normal trileaflet aortic valve. There is no aortic valve stenosis. There is no aortic valve regurgitation. Mitral Valve The mitral valve appears normal. There is no mitral valve regurgitation. There is no mitral valve stenosis. Pulmonic Valve The pulmonic valve is likely normal. Tricuspid Valve Normal tricuspid valve structure. There is trace tricuspid valve regurgitation. There is no evidence of pulmonary hypertension. Great Vessels The asc aorta is normal in size. Venous The inferior vena cava was not well visualized. Pericardium/Pleural There is no evidence of pericardial effusion. Prior Study Comparison No prior study available for comparison. Recommendations, Care & Conclusions No obvious valvular pathology seen on this study. Measurements 2D Linear Measurements IVSd: 0.91 0.6-0.9/0.6-1.0 cm LVIDd: 3.39 3.9-5.3/4.2-5.9 cm LVIDd Index: 1.93 2.4-3.2/2.2-3.1 cm/m2 LVIDs: 1.97 2.0-3.6 cm LVPWd: 0.87 0.7-1.1 cm LA Diam: 3.20 2.7-3.8/3.0-4.0 cm LAIDs Index: 1.82 1.5-2.3 cm/m2 LV Mass: 102.45 67-162/88-224 g LV Mass Index: 58.21 43-95/49-115 g/m2 LVOT Diam: 1.90 3.0+(-)1.3 cm 2D Systolic Function EF 4C: 52.00 >55% EF 2C: 60.50 >55% EF BiP: 57.50 >55% Mitral Valve MV Pk E: 0.63 MV PK A: 0.84 MV Decel Time: 268.00 E/A: 0.70 E'Lateral: 8.27 E'Medial: 5.66 E/E' Med: 11.10 E/E' Lat: 7.60 PHT: 78.00 MVA PHT: 2.82 Decel [place]: 2.34 Aortic Valve AoV Pk John: 1.10 AoV Mn John: 0.78 AoV VTI: 0.22 AoV Pk Grad: 5.00 Aov Mn Grad: 3.00 GRISELDA Cont.VTI: 2.34 LVOT LVOT Pk John: 0.91 LVOT Mn John: 0.62 LVOT VTI: 0.18 LVOT Pk Grad: 3.00 LVOT Mn Grad: 2.00 LVOT Diam: 1.90 LVOT Area: 2.84 Diastolic Function MV Pk E: 0.63 MV Pk A: 0.84 E/A: 0.70 E'Medial: 5.66 E/E' Med: 11.10 E' Laterial: 8.27 E/E' Lat: 7.60 Right Ventricle TAPSE (mm): 15.90 TVS' John: 9.36 Tricuspid Valve TR Pk John: 2.23 TR Pk Grad: 20.00 Great Vessels Aorta Sinus of Valsalva: 3.00 2.0-3.5 cm Ao Asc: 3.30 2.1-3.4 cm Pulmonary Valve PV Pk John: 0.84 Peak PV Grad: 3.00 Updated in Other Vendor System with Status of Final Don Jordan MD electronically signed on 04/03/2023 2:22:02 PM with status of Final
== END ==
LOC: HO.CARD 08:46
PROVIDERS: PCP Internal Medicine; Visit Provider Internal Medicine
DX: R00.0 Tachycardia, unspecified (principal); R94.31 Abnormal electrocardiogram [ECG] [EKG]; E11.9 Type 2 diabetes mellitus without complications; R03.0 Elevated blood-pressure reading, without diagnosis of hypertension
CPT/HCPCS: 93306

== ENCOUNTER → 2023-04-02 08:49 | Outpatient (BNV) | payer MEDICARE, SELFPAY | PROVIDERS: PCP Internal Medicine; Visit Provider Internal Medicine | DX: R94.31 Abnormal electrocardiogram [ECG] [EKG] (principal) | CPT/HCPCS: 93306 ==

== ENCOUNTER 2023-05-26 14:29 | Outpatient (AMB) | payer MEDICARE, SELFPAY ==
--- NOTE | 2023-05-26 14:38 | MHC.OFFVIS ---
Intake Vital Signs 05/26/23 14:39 Height 5 ft 1 in Weight 180 lb 12.465 oz BMI 34.2 BP 122/80 Blood Pressure Location Lt brachial Position Sitting Pulse 92 Intake Visit Reasons: NPV/Robel/Abnormal EKG Intake Note: New patient abnormal EKG had echo feeling good Janitor Required: No Allergies acetaminophen [Percocet] Adverse Reaction (Unknown, Verified 03/02/23 09:32) N/V oxycodone [Percocet] Adverse Reaction (Unknown, Verified 03/02/23 09:32) N/V Medication List - Last Reconciled 05/26/23 by Taye Spencer MD blood sugar diagnostic ([employer] Ultra Test strips) Use to check fasting blood sugar daily blood-glucose meter ([employer] Ultra2 Meter) Use to check fasting blood sugar daily lancets ([employer] Delica Lancets) use to check fasting blood sugar daily HPI HPI Comments History of Present Illness Details Danni was referred here for abnormal EKG. Reviewed EKG which showed possible left atrial enlargement. She then says she was referred here because heart remains elevated. At rest heart rate in the 90s. However during the EKG reading the heart rate is 70 beats per minute. She subsequent underwent echocardiogram which shows overall normal structure of the heart without any significant biatrial enlargement. She comes for follow-up. She was recently diagnosed with diabetes and started on oral therapy but developed hypoglycemia and currently is off therapy. She also noticing a blood pressure is generally well controlled. She has known history of hyperlipidemia but currently not on any treatment. She denies any symptoms. She says she is very active and walks at least 3 to 4 times a week and has no exertional chest pain or shortness of breath. No symptoms of palpitations, lightheadedness, syncope. No orthopnea, PND. She does have family history of diabetes as well as premature coronary artery disease. [facility] Medical History Prediabetes Surgical History History of tooth extraction Hx of fusion of cervical spine History of bilateral tubal ligation Family History Father History of heart attack 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 Mother 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 Stroke Brother TIA (transient ischemic attack) Maternal Grandfather No problems noted. Maternal Grandmother No problems noted. Paternal Grandfather No problems noted. Paternal Grandmother No problems noted. Brother No problems noted. Brother No problems noted. Brother No problems noted. Son No problems noted. Daughter No problems noted. Sister Melanoma Sister No problems noted. Sister No problems noted. Sister No problems noted. Sister No problems noted. Other Mental health disorder Social History Housing: House Alcohol intake: current Alcohol intake frequency: a few times a week Alcohol type: beer and wine Patient Tobacco Use Status: Former Tobacco user Quit Date: Two months ago e-Cigarette/Vaping Use: Never Used Second Hand Smoke Exposure: No Substance Use Type: Marijuana service: No Current occupational status: retired Cognitive needs: No Hearing needs: No Vision needs: Yes (GLASSES) Review of Systems Const Denies chills, Denies daytime sleepiness, Denies fatigue, Denies fever(s), Denies frequent falls, Denies poor appetite, Denies snoring, Denies stops breathing during sleep, Denies weakness, Denies weight gain and Denies weight loss Eyes Denies loss of vision ENT Denies dizziness and Denies hearing loss Card Denies chest pain, Denies claudication, Denies leg edema, Denies lightheadedness, Denies palpitations, Denies dyspnea, Denies dyspnea on exertion and Denies orthopnea Resp Denies cough, Denies excessive phlegm production, Denies dyspnea, Denies dyspnea on exertion, Denies snoring and Denies wheezing GI Denies abdominal pain, Denies hematochezia, Denies change in bowel habits, Denies nausea and Denies vomiting Denies urinary frequency and Denies dysuria Musc Denies arthralgias, Denies muscle weakness, Denies numbness and Denies other (frequent falls) Skin/Breast Denies nail changes and Denies rash Neuro Denies Abnormal speech present, Denies dizziness, Denies frequent falls, Denies loss of vision, Denies memory loss, Denies numbness and Denies weakness Psych Denies depression and Denies memory loss Endo Denies fatigue and Denies palpitations Mekhi/Lymph Reports easy bruising and Reports other (anemia) Aller/Immun Denies wheezing Physical Exam Vital Signs: Last Vital Signs Pulse 92 05/26/23 14:39 BP 122/80 05/26/23 14:39 BMI result Body Mass Index 34.2 Const General: cooperative, comfortable, no acute distress, alert, awake and Physically active Nutritional Appearance: overweight Orientation/consciousness: patient oriented x3 Limitations: no limitations HEENT Head: Yes normocephalic and Yes atraumatic Neck Neck: Yes trachea midline, Yes supple and Yes no JVD Resp Effort & Inspection: normal respiratory effort Auscultation: clear to auscultation bilaterally Cardio Jugular venous distension: no JVD Palpation: normal PMI Rate: regular rate Rhythm: regular rhythm Heart sounds: S1 normal heart sound present, S2 normal heart sound present, no click, no gallops, no murmurs and no rubs GI Auscultation: normal bowel sounds Skin General skin exam: no rashes or lesions noted Neuro General: patient oriented x3 and no focal motor deficits Speech: No Abnormal speech present Extrem General: Yes no clubbing, cyanosis or edema Assessment & Plan Assessment & Plan (1) Hyperlipidemia: Code(s): E78.5 - Hyperlipidemia, unspecified Plan: Hyperlipidemia in this elderly woman with recently diagnosed diabetes and borderline blood pressure. A blood pressure today is well optimized. Her last LDL was 149 mg/dL given her family history as well as self history of diabetes I think she should be on statin therapy. Other possible approach would be to do a coronary calcium score. However she says she wants to defer that for now. Her consider statin therapy with Lipitor 20 mg daily to target goal LDL closer to 70 mg/dL. She has currently not having any symptoms with exertion no further stress testing is indicated. There is no significant abnormality of the EKG and her echocardiogram is within normal limits. No further workup is indicated. Continue generalized risk factor modification. Will follow up in the clinic if need be. Thank you for allowing me to partake in the care Coding Level of Care Code New Pt Level 3 (89663) Diagnoses Hyperlipidemia E78.5
[2023-05-26 14:39] VITALS: BP 122/80; PULSE 92; BMI 34.2
== END 2023-05-26 15:05 | disposition home or self-care (01) ==
PROVIDERS: PCP Internal Medicine; Visit Provider Internal Medicine Cardiovascular Disease
DX: E78.5 Hyperlipidemia, unspecified (principal)
CPT/HCPCS: 99203

== ENCOUNTER → 2023-05-26 14:29 | Outpatient (BNVA) | payer MEDICARE, SELFPAY | PROVIDERS: PCP Internal Medicine; Visit Provider Internal Medicine Cardiovascular Disease | DX: E78.5 Hyperlipidemia, unspecified (principal) | CPT/HCPCS: 99202 ==

== ENCOUNTER 2023-08-18 07:25 | Outpatient (REF) | payer MEDICARE, SELFPAY ==
[2023-08-18 10:27] LABS: MANUAL DIFF FLAG NO
[2023-08-18 10:39] LABS: Basophils Absolute Auto 0.1 X10*3/uL (0.0-0.2); Basophils Percent Auto 0.8 % (0-2); Eosinophils Absolute Auto 0.1 X10*3/uL (0.0-0.4); Eosinophils Percent Auto 1.5 % (0-4); Hemoglobin 14.1 g/dl (12.0-16.0); Imm Gran Abs Auto 0.01 X10*3/uL (0.00-0.03); Imm Gran Pct Auto 0.2 % (0.0-0.4); Lymphocytes Absolute Auto 1.8 X10*3/uL (1.2-4.9); Mean Corpuscular HGB Conc 33.6 g/dl (31.0-35.0); Mean Corpuscular Hemoglobin 30.9 pg (27.0-33.0); Mean Corpuscular Volume 92.1 fL (80.0-98.0); Mean Platelet Volume 10.6 fL (9.4-12.3); Monocytes Absolute Auto 0.6 X10*3/uL (0.1-1.2); Monocytes Percent Auto 9.5 % (2-11); Neutrophils Absolute Auto 3.5 x10*3/uL (2.0-8.3); Platelet Count 323 X10*3/uL (160-400); Red Blood Count 4.56 X10*6/uL (4.20-5.50); Red Cell Distribution Width 11.9 % (11.0-16.0)
[2023-08-18 10:51] LABS: Estimated Average Glucose 166 mg/dL; Hemoglobin A1c % 7.4 % (<6.0)
[2023-08-18 11:01] LABS: Alanine Aminotransferase 17 U/L (0-31); Albumin Level 4.2 g/dL (3.5-5.0); Alkaline Phosphatase 89 U/L (39-117); Anion Gap 11 (12-20); Aspartate Amino Transferase 18 U/L (5-31); Bilirubin Total 0.5 mg/dL (0.0-1.0); Blood Urea Nitrogen 10 mg/dL (9-16); Calcium 9.5 mg/dL (8.4-10.2); Carbon Dioxide 27 mmol/L (22-29); Chloride 102 mmol/L (96-108); Cholesterol 228 mg/dL (<200); Estimated Glomerular Filt Rate > 60; Glucose Fasting 135 mg/dL (60-99); HDL Cholesterol 64 mg/dL (>40); LDL Cholesterol Calculated 144 mg/dL (<100); Potassium 4.6 mmol/L (3.3-5.1); Sodium 135 mmol/L (135-145); Total Protein 7.6 g/dL (6.5-8.0); Triglycerides 101 mg/dL (<150)
[2023-08-18 11:19] LABS: Creatinine Urine 33.08 mg/dL; Microalbumin Urine < 5.0 mg/L
== END 2023-08-18 07:26 | disposition home or self-care (01) ==
LOC: HO.HMGCLDS 07:25
PROVIDERS: PCP Internal Medicine; Visit Provider Internal Medicine
DX: E11.9 Type 2 diabetes mellitus without complications (principal); E66.09 Other obesity due to excess calories
CPT/HCPCS: 36415; 80053; 80061; 82043; 82570; 83036; 85025

== ENCOUNTER 2023-08-31 10:30 | Outpatient (AMB) | payer MEDICARE, SELFPAY ==
[2023-08-31 10:34] VITALS: BP 128/84; PULSE 91; O2SAT 99; BMI 37.3
--- NOTE | 2023-08-31 10:34 | A.OFFPC_ITS ---
Vital Signs 08/31/23 10:34 Height 5 ft 1 in Weight 197 lb 6 oz BMI 37.3 BP 128/84 Blood Pressure Location Rt brachial Position Sitting Pulse 91 Pulse Source Pulse Oximeter Pulse Oximetry (%) 99 Oxygen Delivery Method Room Air Intake Visit Reasons: Annual PE/6 month follow up Allergies acetaminophen [Percocet] Adverse Reaction (Unknown, Verified 08/31/23 10:37) N/V oxycodone [Percocet] Adverse Reaction (Unknown, Verified 08/31/23 10:37) N/V Medication List - Last Reconciled 08/31/23 by Carlos Huston MD blood sugar diagnostic ([employer] Ultra Test strips) Use to check fasting blood sugar daily blood-glucose meter ([employer] Ultra2 Meter) Use to check fasting blood sugar daily lancets ([employer] Delica Lancets) use to check fasting blood sugar daily Tobacco use date assessed: 08/31/23 Fall risk assessment: No Falls in past year Last assessed Fall Risk: 08/31/23 Dental Screening Dental Screen Date: 08/31/23 Did you have a dental visit in the last 12 months?: Yes Did you have a dental problem in the last 6 months where you did not have access to dental care?: No Was dental information given to patient?: Patient has dentist HPI Annual PE/6 month follow up HPI Details Patient is 68-year-old female came today for physical examination Patient is diabetic, however taking no medication Recent labs showed hemoglobin A1c of 7.4 It was 6.4 in LDL is 144 Patient do not want to take any medication She will return 4 months for hemoglobin A1c check Mammogram was January of last year OBGYN visit was February of last year, Pap smear breast exam through them Colonoscopy was 5 years ago patient says that she does not want to have another. BMI is elevated she is trying to lose weight. [facility] Medical History Prediabetes Surgical History History of tooth extraction Hx of fusion of cervical spine History of bilateral tubal ligation Family History Father History of heart attack 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 Mother 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 Stroke Brother TIA (transient ischemic attack) Maternal Grandfather No problems noted. Maternal Grandmother No problems noted. Paternal Grandfather No problems noted. Paternal Grandmother No problems noted. Brother No problems noted. Brother No problems noted. Brother No problems noted. Son No problems noted. Daughter No problems noted. Sister Melanoma Sister No problems noted. Sister No problems noted. Sister No problems noted. Sister No problems noted. Other Mental health disorder Social History Housing: House Alcohol intake: current Alcohol intake frequency: a few times a week Alcohol type: beer and wine Patient Tobacco Use Status: Former Tobacco user Quit Date: Two months ago e-Cigarette/Vaping Use: Never Used Second Hand Smoke Exposure: No Substance Use Type: Marijuana service: No Current occupational status: retired Cognitive needs: No Hearing needs: No Vision needs: Yes (GLASSES) Questionnaire PHQ-9 Over the last 2 weeks, how often have you been bothered by any of the following problems? 1. Little interest or pleasure in doing things: several days 2. Feeling down, depressed, or hopeless: not at all 3. Trouble falling or staying asleep, or sleeping too much: not at all 4. Feeling tired or having little energy: not at all 5. Poor appetite or overeating: not at all 6. Feeling bad about yourself - or that you are a failure or have let yourself or your family down: not at all 7. Trouble concentrating on things, such as reading the newspaper or watching television: not at all 8. Moving or speaking so slowly that other people could have noticed. Or the opposite - being so fidgety or restless that you have been moving around a lot more than usual: not at all 9. Thoughts that you would be better off or of hurting yourself in some way: not at all Total score: 1 Depression Screening Interpretation: Negative Depression Screening Done: Yes 65698 - PHQ-9 Billing: Yes Source: Developed by Drs. Austin Hastings, Renetta Parsons, Brian Casey and colleagues, with an educational wayne from [employer]. Thrive Questionnaire Date Thrive assessed: 08/31/23 I am a: Patient What is your living situation today?: I have a steady place to live Within the past 12 months, did the food you bought not last and you didn't have the money to get more?: Never true Within the past 12 months, did you worry whether your food would run out before you got money to buy more?: Never true Do you have trouble paying for medicines?: No Do you have trouble getting transportation to medical appointments?: No Do you have trouble paying your heating and electricity bill?: No Do you have trouble taking care of your child, family member or friend?: No Do you have trouble with day-to-day activities such as bathing, preparing meals, shopping, managing finances, etc.?: No Are you currently unemployed and looking for a job?: No Are you interested in more education?: No Please select the resources that you would like help with: None Currently or been in a relationship where the following occur: no concerns reported THRIVE Score: 0 AUDIT C Alcohol Use Questionnaire (AUDIT-C) 1. How often do you have a drink containing alcohol?: Monthly or less 2. How many drinks containing alcohol do you have on a typical day when you are drinking?: 1 or 2 3. How often do you have six or more drinks on one occasion?: Never Total Score: 1 Score Reviewed/Action Taken: Yes ANJELICA-7 AMB Questionnaire ANJELICA-7 Date ANJELICA - 7 assessed: 08/31/23 Feeling nervous, anxious, or on edge: 0 = Not at all Not being able to stop or control worryin = Not at all Worrying too much about different things: 0 = Not at all Trouble relaxin = Not at all Being so restless that it is hard to sit still: 0 = Not at all Becoming easily annoyed or irritable: 0 = Not at all Feeling afraid as if something awful might happen: 0 = Not at all Total ANJELICA-7 score (0-4 normal; 5-9 mild; 10-14 moderate; 15-21 severe): 0 Source: Developed by Drs. Austin Hastings, Renetta Parsnos, Brian Casey and colleagues, with an educational wayne from [employer]. ANJELICA-7 Assessment Billing ANJELICA-7 Assessment Tool: ANJELICA-7 Assessment 00658 Review of Systems Const Denies chills, Denies fever(s) and Denies headache(s) Eyes Denies blurry vision ENT Denies headache(s), Denies nasal discharge, Denies nasal obstruction, Denies odynophagia and Denies sinus pain Card Denies chest pain at rest and Denies chest pain with activity Resp Denies cough and Denies hemoptysis GI Denies diarrhea, Denies odynophagia, Denies vomiting and Denies hematemesis Reports as per HPI Musc Denies abnormal gait Skin/Breast Reports as per HPI Neuro Denies Neuro-related abnormal movements, Denies Abnormal speech present, Denies abnormal gait, Denies headache(s) and Denies Sensory deficit (Neuro) Psych Denies mood swings and Denies paranoia Endo Reports as per HPI Mekhi/Lymph Reports as per HPI Aller/Immun Reports as per HPI Physical exam (Primary Care) Vital Signs: Last Vital Signs Pulse 91 08/31/23 10:34 BP 128/84 08/31/23 10:34 Pulse Ox 99 08/31/23 10:34 Oxygen Delivery Method Room Air 08/31/23 10:34 BMI result Body Mass Index 37.3 Tobacco/Smoking Status: Tobacco use Status Tobacco use date assessed 08/31/23 08/31/23 10:37 Patient Tobacco Use Status Former Tobacco user 08/31/23 10:37 e-Cigarette/Vaping Use Never Used 08/31/23 10:37 PHQ-9: PHQ-9 Score PHQ-9: Total score 1 08/31/23 10:58 Depression Screening Interpretation: Negative Thrive Assessment: Date of Thrive Assessment Date Thrive assessed 08/31/23 08/31/23 10:58 Currently or been in a relationship where the following occur: no concerns reported Const General: cooperative, comfortable and no acute distress Orientation/consciousness: patient oriented x3 HENMT Head: Yes normocephalic and Yes atraumatic Eyes General: appearance normal, both eyes and all related structures Pupils: Equal, round and reactive pupils present EOM: EOMs intact bilaterally Neck Neck: Yes supple and No lymphadenopathy Thyroid: Thyroid normal Lymphatic: no lymphadenopathy noted Resp Effort & Inspection: normal respiratory effort and able to speak in complete sentences Auscultation: clear to auscultation bilaterally Cardio Heart sounds: S1 normal heart sound present and S2 normal heart sound present GI Palpation (GI): Soft to palpation and nontender Auscultation: normal bowel sounds General: Yes no CVA tenderness Back/Spine/Pelvis Back: no CVA tenderness Skin General skin exam: elasticity normal and turgor normal Neuro General: patient oriented x3 and gait normal Cranial nerves: Yes Equal, round and reactive pupils present Speech: No Abnormal speech present Sensory Exam: No Sensory deficit (Neuro) Coordination: tandem gait normal and Romberg test negative Extrem General: Yes normal exam except as noted and No edema Assessment and Plan Assessment & Plan (1) Encounter for general adult medical examination with abnormal findings: Code(s): Z00.01 - Encounter for general adult medical examination with abnormal findings (2) Obesity due to excess calories: Code(s): E66.09 - Other obesity due to excess calories Qualifiers: Body mass index: BMI 33.0-33.9 Obesity classification: adult class 1 (BMI 30 - 34.9) Serious obesity comorbidity presence: with serious comorbidity Qualified Code(s): E66.09 - Other obesity due to excess calories; Z68.33 - Body mass index [BMI] 33.0-33.9, adult (3) 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: Code(s): E11.9 - Type 2 diabetes mellitus without complications Qualifiers: 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 complication status: without complication 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 fpc insulin use: without fpc use 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 type: type 2 Qualified Code(s): E11.9 - Type 2 diabetes mellitus without complications Plan Patient is 68-year-old female came today for physical examination Patient is diabetic, however taking no medication Recent labs showed hemoglobin A1c of 7.4 It was 6.4 in LDL is 144 Patient do not want to take any medication She will return 4 months for hemoglobin A1c check Mammogram was January of last year OBGYN visit was February of last year, Pap smear breast exam through them Colonoscopy was 5 years ago patient says that she does not want to have another. BMI is elevated she is trying to lose weight. Eye exam was June of this year Dr. Osborn in lead low Patient also have a supervisor [employer] Coding Level of Care Code Est Pt Prev Care >65y(49801) Diagnoses Encounter for general adult medical examination with abnormal findings Z00.01 Class 1 obesity due to excess calories with serious comorbidity and body mass index (BMI) of 33.0 to 33.9 in adult E66.09; Z68.33 Body mass index: BMI 33.0-33.9 Obesity classification: adult class 1 (BMI 30 - 34.9) Serious obesity comorbidity presence: with serious comorbidity Type 2 diabetes mellitus without complication, without long-term current use of insulin E11.9 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 complication status: without complication 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 terminal supervisor insulin use: without terminal supervisor use 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 type: type 2 Additional Codes ANJELICA-7 Assessment Billing - ANJELICA-7 Assessment Tool: ANJELICA-7 Assessment 85151 ([id number])
== END 2023-08-31 11:00 | disposition home or self-care (01) ==
PROVIDERS: PCP Internal Medicine; Visit Provider Internal Medicine
DX: Z00.00 Encounter for general adult medical examination without abnormal findings (principal); E66.09 Other obesity due to excess calories; Z68.33 Body mass index [BMI] 33.0-33.9, adult; E11.9 Type 2 diabetes mellitus without complications
CPT/HCPCS: 99397

== ENCOUNTER 2023-10-14 08:34 | Outpatient (AMB) | payer MEDICARE, SELFPAY ==
--- NOTE | 2023-10-14 08:35 | MHC.OFFWIV ---
Intake Intake Visit Reasons: Missed Appt 10/06~ [phone] Patient Tobacco Use Status: Former Tobacco user Allergies acetaminophen [Percocet] Adverse Reaction (Unknown, Verified 10/14/23 08:35) N/V oxycodone [Percocet] Adverse Reaction (Unknown, Verified 10/14/23 08:35) N/V Do you need a note to return to daycare/school/sports/work: No PFSH Medical History Prediabetes Surgical History History of tooth extraction Hx of fusion of cervical spine History of bilateral tubal ligation Family History Father History of heart attack 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 Mother 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 Stroke Brother TIA (transient ischemic attack) Maternal Grandfather No problems noted. Maternal Grandmother No problems noted. Paternal Grandfather No problems noted. Paternal Grandmother No problems noted. Brother No problems noted. Brother No problems noted. Brother No problems noted. Son No problems noted. Daughter No problems noted. Sister Melanoma Sister No problems noted. Sister No problems noted. Sister No problems noted. Sister No problems noted. Other Mental health disorder Social History Housing: House Alcohol intake: current Alcohol intake frequency: a few times a week Alcohol type: beer and wine Patient Tobacco Use Status: Former Tobacco user e-Cigarette/Vaping Use: Never Used Second Hand Smoke Exposure: No Substance Use Type: Marijuana service: No Current occupational status: retired Cognitive needs: No Hearing needs: No Vision needs: Yes (GLASSES) Coding
--- NOTE | 2023-10-14 09:01 | MHC.PC.OV ---
Intake Visit Reasons: Missed Appt 10/06~ [phone] Allergies acetaminophen [Percocet] Adverse Reaction (Unknown, Verified 10/14/23 08:35) N/V oxycodone [Percocet] Adverse Reaction (Unknown, Verified 10/14/23 08:35) N/V Medication List - Last Reconciled 10/14/23 by Carlos Huston MD blood sugar diagnostic ([employer] Ultra Test strips) Use to check fasting blood sugar daily blood-glucose meter ([employer] Ultra2 Meter) Use to check fasting blood sugar daily glipizide 5 mg PO DAILY lancets ([employer] Delica Lancets) use to check fasting blood sugar daily Tobacco use date assessed: 08/31/23 Dental Screening Dental Screen Date: 08/31/23 HPI Missed Appt 10/06~ [phone] HPI Details Hba1c came back at 7.4 initially patient didnt wanted to take meds but then change her mind after seeing the number she is now taking Glipizide 5 mg, she is tolerating the Med , no side effect she will repeat labs in Nov encourged patien to follow diabetic diet one day she did excerices and didnt take her lunch , her sugar dropped to 67 and she felt sweaing but she is now careful and can tell when her sugar is getting low f.u in Mar [facility] Medical History Prediabetes Surgical History History of tooth extraction Hx of fusion of cervical spine History of bilateral tubal ligation Family History Father History of heart attack 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 Mother 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 Stroke Brother TIA (transient ischemic attack) Maternal Grandfather No problems noted. Maternal Grandmother No problems noted. Paternal Grandfather No problems noted. Paternal Grandmother No problems noted. Brother No problems noted. Brother No problems noted. Brother No problems noted. Son No problems noted. Daughter No problems noted. Sister Melanoma Sister No problems noted. Sister No problems noted. Sister No problems noted. Sister No problems noted. Other Mental health disorder Social History Housing: House Alcohol intake: current Alcohol intake frequency: a few times a week Alcohol type: beer and wine Patient Tobacco Use Status: Former Tobacco user e-Cigarette/Vaping Use: Never Used Second Hand Smoke Exposure: No Substance Use Type: Marijuana service: No Current occupational status: retired Cognitive needs: No Hearing needs: No Vision needs: Yes (GLASSES) Questionnaire Thrive Questionnaire Date Thrive assessed: 08/31/23 ANJELICA-7 AMB Questionnaire ANJELICA-7 Date ANJELICA - 7 assessed: 08/31/23 Source: Developed by Drs. Austin Hastings, Renetta Parsons, Brian Casey and colleagues, with an educational wayne from [employer]. Review of Systems Const Denies chills and Denies fever(s) ENT Denies epistaxis and Denies nasal discharge Card Denies chest pain Resp Denies chest congestion, Denies cough and Denies hemoptysis GI Denies diarrhea and Denies nausea Skin/Breast Denies rash Neuro Reports no additional complaints Psych Reports no additional complaints Endo Reports no additional complaints Physical exam (Primary Care) Tobacco/Smoking Status: Tobacco use Status Tobacco use date assessed 08/31/23 10/14/23 09:03 Patient Tobacco Use Status Former Tobacco user 10/14/23 09:03 e-Cigarette/Vaping Use Never Used 10/14/23 09:03 Thrive Assessment: Date of Thrive Assessment Date Thrive assessed 08/31/23 10/14/23 09:03 Telehealth Telehealth Telehealth Platform: [facility] Location of provider rendering services: practice address Location of patient: address on file Patient Identification confirmed using: Name, : Yes Telehealth method: video Patient verbally consented to treatment: Yes Patient verbally consented to billing insurance company: Yes Patient informed of any privacy concerns related to visit: Yes Minutes spent on Phone/Video with Pt.: 14 Assessment and Plan Assessment & Plan (1) 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: Code(s): E11.9 - Type 2 diabetes mellitus without complications Qualifiers: 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 complication status: without complication 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 detention insulin use: without hardware assembler use 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 type: type 2 Qualified Code(s): E11.9 - Type 2 diabetes mellitus without complications Plan Hba1c came back at 7.4 initially patient didnt wanted to take meds but then change her mind after seeing the number she is now taking Glipizide 5 mg, she is tolerating the Med , no side effect she will repeat labs in Nov encourged patien to follow diabetic diet one day she did excerices and didnt take her lunch , her sugar dropped to 67 and she felt sweaing but she is now careful and can tell when her sugar is getting low f.u in Mar Orders: Orders Comprehensive Met. Panel Today E11.9 - Type 2 diabetes mellitus without complications Hemoglobin A1c Today E11.9 - Type 2 diabetes mellitus without complications Microalbumin, Random (w Creat) Today E11.9 - Type 2 diabetes mellitus without complications Medications: Refilled glipizide 5 mg PO DAILY 90 tabs 1RF Coding Level of Care Code Tele Est Pt Level 3 (23050) Complex EM visit Add On G2211 Diagnoses Type 2 diabetes mellitus without complication, without long-term current use of insulin E11.9 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 complication status: without complication 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 hardware assembler insulin use: without detention use 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 type: type 2
== END 2023-10-14 16:48 | disposition home or self-care (01) ==
PROVIDERS: PCP Internal Medicine; Visit Provider Internal Medicine
DX: E11.9 Type 2 diabetes mellitus without complications (principal)
CPT/HCPCS: 99213; G2211

== ENCOUNTER 2023-12-23 06:57 | Outpatient (REF) | payer MEDICARE, SELFPAY ==
[2023-12-23 10:14] LABS: Estimated Average Glucose 143 mg/dL; Hemoglobin A1c % 6.6 % (<6.0)
[2023-12-23 10:30] LABS: Alanine Aminotransferase 32 U/L (0-31); Albumin Level 4.3 g/dL (3.5-5.0); Alkaline Phosphatase 113 U/L (39-117); Anion Gap 12 (12-20); Aspartate Amino Transferase 24 U/L (5-31); Bilirubin Total 0.5 mg/dL (0.0-1.0); Blood Urea Nitrogen 14 mg/dL (9-16); Carbon Dioxide 27 mmol/L (22-29); Chloride 105 mmol/L (96-108); Estimated Glomerular Filt Rate > 60; Glucose Random 153 mg/dL (60-115); Potassium 4.7 mmol/L (3.3-5.1); Sodium 139 mmol/L (135-145); Total Protein 7.7 g/dL (6.5-8.0)
[2023-12-23 10:43] LABS: Creatinine Urine 83.91 mg/dL; Microalbum/Creatinine Ratio Ur 7.1 ug/mg cr (<30)
== END 2023-12-23 06:58 | disposition home or self-care (01) ==
LOC: HO.HMGCLDS 06:57
PROVIDERS: PCP Internal Medicine; Visit Provider Internal Medicine
DX: E11.9 Type 2 diabetes mellitus without complications (principal)
CPT/HCPCS: 36415; 80053; 82043; 82570; 83036

== ENCOUNTER 2024-02-22 07:08 | Outpatient (REF) | payer MEDICARE, SELFPAY ==
--- NOTE | ~2024-02-22 | MM_ITS ---
EXAMINATION: MM SCREENING DIGITAL BREAST TOMOSYNTHESIS, BILATERAL CLINICAL INFORMATION: Screening. Asymptomatic. COMPARISON: Mammography: Comparison is made with available priors TECHNIQUE: Digital breast mammography with tomosynthesis is performed in both the craniocaudal and mediolateral oblique views along with computer-aided detection (CAD). FINDINGS: There are scattered areas of fibroglandular density (ACR BI-RADS breast composition Category b). There are no significant masses, abnormal calcifications, or other abnormalities. MM/MM tomosynthesis screening BI IMPRESSION: No mammographic evidence of malignancy. ASSESSMENT: BI-RADS BI-RADS 1 - Negative RECOMMENDATION: Routine annual mammography screening. 1 year F/U This examination should not preclude the clinical evaluation of a suspicious palpable abnormality. This patient's information was entered into a reminder system with a target due date for their next mammogram. Electronically signed by: Lisseth Russell DO 03/01/2024 10:29 AM [facility]ERA
== END 2024-02-22 07:09 | disposition home or self-care (01) ==
LOC: HO.MAMMO 07:08
PROVIDERS: PCP Internal Medicine; Visit Provider Internal Medicine
DX: Z12.31 Encounter for screening mammogram for malignant neoplasm of breast (principal)
CPT/HCPCS: 77063; 77067

== ENCOUNTER → 2024-02-22 07:30 | Outpatient (BNV) | payer MEDICARE, SELFPAY | PROVIDERS: PCP Internal Medicine; Visit Provider Internal Medicine | DX: Z12.31 Encounter for screening mammogram for malignant neoplasm of breast (principal) | CPT/HCPCS: 77063; 77067 ==

== ENCOUNTER 2024-02-29 08:01 | Outpatient (AMB) | payer MEDICARE, SELFPAY ==
--- NOTE | 2024-02-29 08:03 | MHC.OFFVIS ---
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 She is doing well with no concerns. Attempting to eat a healthy diet with calcium and vitamin D and stays active with exercise. Currently sexually active. Denies any vaginal dryness or irritation. STI testing offered; she declined. Last pap smear; 2020, negative. Last mammogram; 01/2024-pending read. Colonoscopy is not up to date. She declines due to n/v after procedure. Denies any family history of breast, ovarian or colon cancer. [facility] Medical History (Updated 02/29/24 @ 08:37 by Blanca Betts CNM) 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 Surgical History History of tooth extraction Hx of fusion of cervical spine History of bilateral tubal ligation Family History Father History of heart attack 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 Mother 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 Stroke Brother TIA (transient ischemic attack) Maternal Grandfather No problems noted. Maternal Grandmother No problems noted. Paternal Grandfather No problems noted. Paternal Grandmother No problems noted. Brother No problems noted. Brother No problems noted. Brother No problems noted. Son No problems noted. Daughter No problems noted. Sister Melanoma Sister No problems noted. Sister No problems noted. Sister No problems noted. Sister No problems noted. Other Mental health disorder Social History Housing: House Alcohol intake: current Alcohol intake frequency: a few times a week Alcohol type: beer and wine Patient Tobacco Use Status: Former Tobacco user e-Cigarette/Vaping Use: Never Used Second Hand Smoke Exposure: No Substance Use Type: Marijuana service: No Current occupational status: retired Cognitive needs: No Hearing needs: No Vision needs: Yes (GLASSES) Female Reproductive History Menstrual control method: permanent sterilization Permanent Sterilization: BTL Total pregnancies: 2 Full term: 2 Number of Living Children: 2 Date of last pap smear: 02/24/21 (neg pap and hpv) Date of Mammogram: 02/22/24 Review of Systems Const All systems reviewed & are unremarkable except as noted in HPI and below Reports as per HPI Eyes Reports no additional complaints ENT Reports no additional complaints Card Reports no additional complaints Resp Reports no additional complaints GI Reports as per HPI and Reports no additional complaints Reports as per HPI Musc Reports no additional complaints Skin/Breast Reports as per HPI Neuro Reports no additional complaints Psych Reports no additional complaints Endo Reports no additional complaints Mekhi/Lymph Reports no additional complaints Aller/Immun Reports no additional complaints Physical Exam Vital Signs: Last Vital Signs BP 128/86 02/29/24 08:04 BMI result Body Mass Index 34.0 Const General: cooperative, healthy appearing, no acute distress, well developed and alert Orientation/consciousness: patient oriented x3 HEENT Head: Yes normal to inspection Eyes General: appearance normal, both eyes and all related structures Neck Neck: Yes normal visual inspection Thyroid: Thyroid normal Chest Chest palpation & inspection: normal inspection of the chest and other (no puckering, dimpling, peau de orange, retraction, discharge, masses) Breast/axilla inspection: normal inspection of the breasts Breast/axilla palpation: normal palpation of the breasts Resp Effort & Inspection: normal respiratory effort GI Inspection: Yes normal to inspection Palpation (GI): Soft to palpation Rectal Exam - Female: deferred General: Yes bladder normal to palpation External Female Exam: normal external appearance and normal appearance of the urethra Speculum Exam - Vagina: normal appearance of the vagina, normal palpation and normal vaginal discharge Speculum Exam - Cervix: normal appearance of the cervix and normal palpation Bimanual exam- vagina & uterus: normal bimanual exam, normal palpation, uterine size normal, bladder normal to palpation, normal palpation and non-tender Bimanual Exam- Adnexa, other: no masses Skin General skin exam: no rashes or lesions noted Rashes: no rashes Neuro General: patient oriented x3 Cognition (Neuro): normal cognition Extrem General: Yes normal to inspection Psych Attitude: cooperative Thought process: Normal thought process present Assessment & Plan Assessment & Plan (1) Encounter for routine gynecological examination: Code(s): Z01.419 - Encounter for gynecological examination (general) (routine) without abnormal findings Category: Medical Qualifiers: Gynecological examination findings: abnormal findings ABSENT Qualified Code(s): Z01.419 - Encounter for gynecological examination (general) (routine) without abnormal findings Plan Discussed: Current recommendations for pap smears per ASCCP guidelines. Breast awareness, periodic self breast exams and yearly mammogram. Maintain a healthy lifestyle, well balanced diet including Calcium 1,200 mg and Vitamin D 800 IU daily, and routine exercise. Contact the office with any postmenopausal bleeding. Patient verbalizes understanding and agrees to the plan of care. She was given opportunity to ask questions and all questions were answered to the best of my ability. Return to the office 1-2 years, or as needed. This note is constructed using voice recognition software. While every effort has been made to ensure accuracy, tariff compiling clerk errors may have been included. 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 Coding Level of Care Code Est Pt Prev Care >65y(07015) Diagnoses Encounter for gynecological examination without abnormal finding Z01.419 Gynecological examination findings: abnormal findings ABSENT
[2024-02-29 08:04] VITALS: BP 128/86; BMI 34.0
== END 2024-02-29 08:42 | disposition home or self-care (01) ==
LOC: HO.HWS 08:01
PROVIDERS: Visit Provider Advanced Practice Midwife
DX: Z01.419 Encounter for gynecological examination (general) (routine) without abnormal findings (principal)
CPT/HCPCS: 99397

== ENCOUNTER → 2024-02-29 08:01 | Outpatient (BNVA) | payer MEDICARE, SELFPAY | PROVIDERS: Visit Provider Advanced Practice Midwife | DX: Z01.419 Encounter for gynecological examination (general) (routine) without abnormal findings (principal) | CPT/HCPCS: 99397 ==

== ENCOUNTER 2024-09-06 10:11 | Outpatient (AMB) | payer MEDICARE, SELFPAY ==
[2024-09-06 10:16] VITALS: BP 132/86; PULSE 76; O2SAT 96; BMI 34.8
--- NOTE | 2024-09-06 10:16 | MHC.PC.OV ---
Vital Signs 09/06/24 10:16 Height 5 ft 1 in Weight 184 lb 4 oz BMI 34.8 BP 132/86 Blood Pressure Location Rt brachial Position Sitting Pulse 76 Pulse Source Pulse Oximeter Pulse Oximetry (%) 96 Oxygen Delivery Method Room Air Intake Visit Reasons: Annual PE Allergies acetaminophen [Percocet] Adverse Reaction (Unknown, Verified 09/06/24 10:16) N/V oxycodone [Percocet] Adverse Reaction (Unknown, Verified 09/06/24 10:16) N/V Medication List - Last Reconciled 09/06/24 by Carlos Huston MD blood sugar diagnostic (Tip or Skip Ultra Test strips) Use to check fasting blood sugar daily blood-glucose meter (Tip or Skip Ultra2 Meter) Use to check fasting blood sugar daily glipizide 5 mg PO DAILY lancets (Gaikaiuch Delica Lancets) use to check fasting blood sugar daily magnesium glycinate 100 mg PO DAILY potassium chloride ER 10 mEq PO DAILY Tobacco use date assessed: 09/06/24 Fall risk assessment: No Falls in past year Last assessed Fall Risk: 09/06/24 Dental Screening Dental Screen Date: 09/06/24 Did you have a dental visit in the last 12 months?: Yes Did you have a dental problem in the last 6 months where you did not have access to dental care?: No Was dental information given to patient?: Patient has dentist HPI Annual PE HPI Details History of Present Illness - The patient is a 69-year-old female presenting for a routine physical examination. - She reports a history of Type 2 Diabetes Mellitus and is currently on Glipizide 5 mg once daily. - Her blood pressure readings at home have been consistently around 125-127 mmHg systolic, indicating well-controlled Essential Hypertension. - She experienced leg cramps, alleviated by potassium supplements and consuming bananas and avocados. Patient is taking potassium only if needed that is less than 1 time a week - She had two past colonoscopies with no abnormalities and does not desire further colonoscopy screening or Cologuard testing at this time. - Reports healthy lifestyle adjustments with dietary considerations, like avoiding spinach due to constipation. Health Maintenance - Mammogram conducted in January (year not specified). - FUR BLENDER visit in February of last year. - Refusal of further colonoscopy or Cologuard testing after two previously normal results. - Pneumococcal vaccination (Prevnar) completed in 2022. - Tdap vaccination is pending administration during the visit. - Possible past completion of the shingles vaccine, details pending verification. - Engages regularly in physical activity to enhance muscle strength and tone. - Monitors blood pressure at home with adequate control. Medications - Glipizide 5 mg once daily for Type 2 Diabetes Mellitus - Magnesium supplement for general health - Potassium supplement prn for leg cramps Diagnostic results - Blood pressure: 132/86 mmHg during the visit, historically 125-127 mmHg systolic at home. Patient Instructions - Continue monitoring blood pressure at home. - Engage in regular physical activity for better muscle tone and overall health. - Follow up on vaccination records and complete pending Tdap vaccination. - Include dietary potassium sources for cramp management as needed. - Conduct scheduled laboratory work every six months to monitor diabetes management. - Prioritize a well-balanced diet and monitor any changes in health status. Review of Systems - General: No fever no chills - Neurological: No headaches no dizziness - Ear nose throat: No sore throat no hearing difficulty no ear pain - Cardiovascular: No syncope, no chest pain, no palpitations - Gastrointestinal: No nausea vomiting or diarrhea - Endocrine: No polyuria polydipsia no heat intolerance - Genitourinary: No dysuria - Skin: No new complaints Physical Exam General: Cooperative, healthy appearing, comfortable, no acute distress Orientation: Patient oriented x3 Head: Normal to inspection Ears: Within normal limit visually Nose: Normal external nose present Face and sinus: Normal facial exam Eyes: Appearance normal, extraocular movement intact pupils reactive Neck: Normal visual inspection and supple Respiratory: Normal respiratory effort and able to speak in complete sentences. Clear to auscultation, no stridor Cardiovascular: S1 and S2 RRR Breast exam declined GI: Normal to inspection. Soft to palpation and nontender Skin: Turgor normal, no acute findings Neuro: Patient oriented x3, motor sensory intact, balance intact, tandem failed Extremities: Normal to inspection, knees and shoulders click but no acute issues reported [facility] Medical History 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 Surgical History History of tooth extraction Hx of fusion of cervical spine History of bilateral tubal ligation Family History Father History of heart attack 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 Mother 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 Stroke Brother TIA (transient ischemic attack) Maternal Grandfather No problems noted. Maternal Grandmother No problems noted. Paternal Grandfather No problems noted. Paternal Grandmother No problems noted. Brother No problems noted. Brother No problems noted. Brother No problems noted. Son No problems noted. Daughter No problems noted. Sister Melanoma Sister No problems noted. Sister No problems noted. Sister No problems noted. Sister No problems noted. Other Mental health disorder Social History Housing: House Alcohol intake: current Alcohol intake frequency: a few times a week Alcohol type: beer and wine Patient Tobacco Use Status: Former Tobacco user e-Cigarette/Vaping Use: Never Used Second Hand Smoke Exposure: No Substance Use Type: Marijuana service: No Current occupational status: retired Cognitive needs: No Hearing needs: No Vision needs: Yes (GLASSES) Questionnaire PHQ-9 Over the last 2 weeks, how often have you been bothered by any of the following problems? 23844 - PHQ-9 Billing: Patient declined-do not bill Source: Developed by Drs. Austin Hastings, Renetta Parsons, Brian Casey and colleagues, with an educational wayne from [employer]. Thrive Questionnaire Date Thrive assessed: 09/06/24 I am a: Patient What is your living situation today?: I have a steady place to live Within the past 12 months, did the food you bought not last and you didn't have the money to get more?: Never true Within the past 12 months, did you worry whether your food would run out before you got money to buy more?: Never true Do you have trouble paying for medicines?: No Do you have trouble getting transportation to medical appointments?: No Do you have trouble paying your heating and electricity bill?: No Do you have trouble taking care of your child, family member or friend?: No Do you have trouble with day-to-day activities such as bathing, preparing meals, shopping, managing finances, etc.?: No Are you currently unemployed and looking for a job?: No Are you interested in more education?: No Please select the resources that you would like help with: None Currently or been in a relationship where the following occur: No concerns reported THRIVE Score: 0 AUDIT C Alcohol Use Questionnaire (AUDIT-C) 1. How often do you have a drink containing alcohol?: 2-4 times a month 2. How many drinks containing alcohol do you have on a typical day when you are drinking?: 1 or 2 3. How often do you have six or more drinks on one occasion?: Never Total Score: 2 Score Reviewed/Action Taken: Yes ANJELICA-7 AMB Questionnaire ANJELICA-7 Date ANJELICA - 7 assessed: 09/06/24 Feeling nervous, anxious, or on edge: 0 = Not at all Not being able to stop or control worryin = Not at all Worrying too much about different things: 0 = Not at all Trouble relaxin = Not at all Being so restless that it is hard to sit still: 0 = Not at all Becoming easily annoyed or irritable: 0 = Not at all Feeling afraid as if something awful might happen: 0 = Not at all Total ANJELICA-7 score (0-4 normal; 5-9 mild; 10-14 moderate; 15-21 severe): 0 Source: Developed by Drs. Austin Hastings, Renetta Parsons, Brian Casey and colleagues, with an educational wayne from [employer]. ANJELICA-7 Assessment Billing ANJELICA-7 Assessment Tool: ANJELICA-7 Assessment 87207 Physical exam (Primary Care) Vital Signs: Last Vital Signs Pulse 76 09/06/24 10:16 BP 132/86 09/06/24 10:16 Pulse Ox 96 09/06/24 10:16 Oxygen Delivery Method Room Air 09/06/24 10:16 BMI result Body Mass Index 34.8 Tobacco/Smoking Status: Tobacco use Status Tobacco use date assessed 09/06/24 09/06/24 10:18 Patient Tobacco Use Status Former Tobacco user 09/06/24 10:18 e-Cigarette/Vaping Use Never Used 09/06/24 10:18 Thrive Assessment: Date of Thrive Assessment Date Thrive assessed 09/06/24 09/06/24 10:23 Currently or been in a relationship where the following occur: No concerns reported Immunizations Boostrix Tdap 2.5 Lf unit-8 mcg-5 Lf/0.5 mL intramuscular syringe Performing Provider: Carlos Huston MD Performing Location: [facility] Administered by: Lynette Medina CMA on 09/06/24 10:47 Dose Route Admin Location Dispensed Lot Number Expiration Date [facility] Inclusion Intern 0.5 mL IM Right Deltoid 0.5 mL [id number] 09/06/24 75315-926-95 [employer] VIS Given Date VIS Provided VIS Publication Date 09/06/24 Single Vaccine 20 Eligibility Eligibility Date Funding Source Not [facility] Eligible 09/06/24 Private Coding Level of Care Code Est Pt Level 3 (37104) Est Pt Prev Care >65y(29035) Diagnoses Encounter for annual routine gynecological examination Z01.419 Type 2 diabetes mellitus without complication, without long-term current use of insulin E11.9 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 complication status: without complication 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 care home insulin use: without terminal makeup operator use 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 type: type 2 Class 1 obesity due to excess calories with serious comorbidity and body mass index (BMI) of 33.0 to 33.9 in adult E66.09; Z68.33 Body mass index: BMI 33.0-33.9 Obesity classification: adult class 1 (BMI 30 - 34.9) Serious obesity comorbidity presence: with serious comorbidity Leg cramps R25.2 Immunizations incomplete Z28.3 Additional Codes ANJELICA-7 Assessment Billing - ANJELICA-7 Assessment Tool: ANJELICA-7 Assessment [id number] ([id number]) Assessment & Plan Assessment & Plan (1) Encounter for annual routine gynecological examination: Code(s): Z01.419 - Encounter for gynecological examination (general) (routine) without abnormal findings Category: Medical (2) 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: Code(s): E11.9 - Type 2 diabetes mellitus without complications Category: Medical Qualifiers: 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 complication status: without complication 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 care home insulin use: without care home use 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 type: type 2 Qualified Code(s): E11.9 - Type 2 diabetes mellitus without complications (3) Obesity due to excess calories: Code(s): E66.09 - Other obesity due to excess calories Category: Medical Qualifiers: Body mass index: BMI 33.0-33.9 Obesity classification: adult class 1 (BMI 30 - 34.9) Serious obesity comorbidity presence: with serious comorbidity Qualified Code(s): E66.09 - Other obesity due to excess calories; Z68.33 - Body mass index [BMI] 33.0-33.9, adult (4) Leg cramps: Code(s): R25.2 - Cramp and spasm Category: Medical (5) Immunizations incomplete: Code(s): Z28.3 - Underimmunization status Category: Medical Plan History of Present Illness - The patient is a 69-year-old female presenting for a routine physical examination. - She reports a history of Type 2 Diabetes Mellitus and is currently on Glipizide 5 mg once daily. - Her blood pressure readings at home have been consistently around 125-127 mmHg systolic, indicating well-controlled Essential Hypertension. - She experienced leg cramps, alleviated by potassium supplements and consuming bananas and avocados. Patient is taking potassium only if needed that is less than 1 time a week - She had two past colonoscopies with no abnormalities and does not desire further colonoscopy screening or Cologuard testing at this time. - Reports healthy lifestyle adjustments with dietary considerations, like avoiding spinach due to constipation. Health Maintenance - Mammogram conducted in January (year not specified). - FUR BLENDER visit in February of last year. - Refusal of further colonoscopy or Cologuard testing after two previously normal results. - Pneumococcal vaccination (Prevnar) completed in 2022. - Tdap vaccination is pending administration during the visit. - Possible past completion of the shingles vaccine, details pending verification. - Engages regularly in physical activity to enhance muscle strength and tone. - Monitors blood pressure at home with adequate control. Medications - Glipizide 5 mg once daily for Type 2 Diabetes Mellitus - Magnesium supplement for general health - Potassium supplement prn for leg cramps Diagnostic results - Blood pressure: 132/86 mmHg during the visit, historically 125-127 mmHg systolic at home. Patient Instructions - Continue monitoring blood pressure at home. - Engage in regular physical activity for better muscle tone and overall health. - Follow up on vaccination records and complete pending Tdap vaccination. - Include dietary potassium sources for cramp management as needed. - Conduct scheduled laboratory work every six months to monitor diabetes management. - Prioritize a well-balanced diet and monitor any changes in health status. Orders: Orders Complete Blood Count Auto Diff Today E11.9 - Type 2 diabetes mellitus without complications, E66.09 - Other obesity due to excess calories, E78.5 - Hyperlipidemia, unspecified, Z01.419 - Encounter for gynecological examination (general) (routine) without abnormal findings, Z68.33 - Body mass index [BMI] 33.0-33.9, adult Microalbumin, Random (w Creat) Today E11.9 - Type 2 diabetes mellitus without complications, E66.09 - Other obesity due to excess calories, E78.5 - Hyperlipidemia, unspecified, Z01.419 - Encounter for gynecological examination (general) (routine) without abnormal findings, Z68.33 - Body mass index [BMI] 33.0-33.9, adult Hemoglobin A1c Today E11.9 - Type 2 diabetes mellitus without complications, E66.09 - Other obesity due to excess calories, E78.5 - Hyperlipidemia, unspecified, Z01.419 - Encounter for gynecological examination (general) (routine) without abnormal findings, Z68.33 - Body mass index [BMI] 33.0-33.9, adult Comprehensive Met. Panel Today E11.9 - Type 2 diabetes mellitus without complications, E66.09 - Other obesity due to excess calories, E78.5 - Hyperlipidemia, unspecified, Z01.419 - Encounter for gynecological examination (general) (routine) without abnormal findings, Z68.33 - Body mass index [BMI] 33.0-33.9, adult LDL Cholesterol Direct Today E11.9 - Type 2 diabetes mellitus without complications, E66.09 - Other obesity due to excess calories, E78.5 - Hyperlipidemia, unspecified, Z01.419 - Encounter for gynecological examination (general) (routine) without abnormal findings, Z68.33 - Body mass index [BMI] 33.0-33.9, adult TSH reflex Free T4 Today E11.9 - Type 2 diabetes mellitus without complications, E66.09 - Other obesity due to excess calories, E78.5 - Hyperlipidemia, unspecified, Z01.419 - Encounter for gynecological examination (general) (routine) without abnormal findings, Z68.33 - Body mass index [BMI] 33.0-33.9, adult TDaP Immunization Today Z23 - Encounter for immunization
--- OUTSIDE RECORDS SUMMARY | 2024-09-06 11:13 | XMS_ITS ---
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 Name Role Phone Robel LENNON, [facility] Primary [facility] Provider Silverio Mckeon Unavailable [phone] Allergies Allergen (clinical drug ingredient) Drug/Non Drug Allergy documented on EMR Reaction Allergy Type Onset Date Status acetaminophen / oxycodone Percocet Sensitive Drug Allergy Active acetaminophen Acetaminophen Unknown Drug Allergy Active Gluten Gluten Sensitive Allergy Active oxycodone Oxycodone Unknown Drug Allergy Active REASON FOR VISIT At Risk Footcare, Painful Nail(s) aggrevated by shoes and causing difficulty standing/walking., ToeIrritation Medications Medication SIG (Take, Route, Frequency, Duration) Notes Start Date End Date Status Tylenol PRN Active Tart Nice Active glipiZIDE Active Extra Depth Orthopedic Shoes (1 Pair) with Customized Heat Molded Multidensity Innersoles (3 Pair) as directed Dx: NIDDM (E11.9), Hammertoe Foot Deformity (M20.41,M20.42), Preulcerative Skin Lesion(s) (L85.1) Active glipiZIDE ER 2.5 MG 1 tablet with breakf ast Orally Once a day for 30 day(s) Not-Taking Social History Tobacco Use: Social History Observation Description Date Details (start date - stop date) Never Smoker NA - NA Tobacco use other than smoking: Question Answer Notes Are you an other tobacco user? No Tobacco Control (Standard) Question Answer Notes Tobacco use: Nonsmoker Additional Findings: Tobacco non-user Current no nsmoker Vital Signs Height 5 ft 0 in in 07/25/2024 Weight 177 lbs 07/25/2024 BMI 34.56 kg/m2 07/25/2024 Blood pressure systolic 130 mm Hg 07/26/19 25 Blood pressure diastolic 80 mm Hg 025 Procedures Procedure Date Ordered Date Performed Result Body Sit e [id number] NAIL, 6 OR MORE 07/25/2024 N/A Encounters Encounter Location Date Provider Diagnosis [facility] [address] [place] [address] 07/25/2024 Silverio Zambrano Type 2 diabetes mellitus without complication E11.9 ; Pain in right toe(s) M79.674 ; Tinea unguium B35.1 ; Pain in left toe(s) M79.675 ; Other hammer toe(s) (acquired), right foot M20.41 and Other hammer toe(s) (acquired), left foot M20.42 Assessments Encounter Date Diagnosis (ICD Code) Assessment Notes Treatment Notes Treatment Clinical Notes Section Notes 07/25/2024 Type 2 diabetes mellitus without complication (ICD-10 - E11.9) 07/25/2024 Pain in right toe(s) (ICD-10 - M79.674) 07/25/2024 Tinea unguium (ICD-10 - B35.1) 07/25/2024 Pain in left toe(s) (ICD-10 - M79.675) 07/25/2024 Other hammer toe(s) (acquired), right foot (ICD-10 - M20.41) Patient Educated with: DIABETIC FOOT CARE INSTRUCTIONS.p df (DIABETIC FOOT CARE INSTRUCTIONS.p df) 07/25/2024 Other hammer toe(s) (acquired), left foot (ICD-10 - M20.42) Plan Of Treatment Medication Medication Name Sig Start Date Stop Date Notes Extra Depth Orthopedic Shoes (1 Pair) with Customized Heat Molded Multidensity Innersoles (3 Pair) as directed Dx: NIDDM (E11.9), Hammertoe Foot Deformity (M20.41,M20.42), Preulcerative Skin Lesion(s) (L85.1) Treatment Notes Assessment Notes Other hammer toe(s) (acquired), right fo ot Patient Educated with: DIABETIC FOOT CARE INSTRUCTIONS.pdf (DIABETIC FOOT CARE INSTRUCTIONS.pdf) Pending Test Test Name Order Date [id number] NAIL, 6 OR MORE 07/25/2024 Next Appt Details Follow Up: 1 Year, Reason: Provider Name:Silverio Zambrano , 07/27/2025 01:00:00 PM, [address] [place], [address], Procedure Notes * Category Sub-Category Detail Notes Debride Nail 6-10 Nail debridement Due to the cl inical pathology outlined in the exam findings, performance of this nail treatment is medically necessary as its management by an unskilled/untrained nonprofessional would put this patients foot and overall health at risk. Therefore, debridement to affected nail(s), as described in exam ( TA , T1 , T2 , T3 , T5 , T6 , T7 , T8 ), was performed exclusively by the physician of record to reduce/remove overall nail length, girth, thickness, subungual debris, and necrotic tissue, by manual and/or electrical means through the use of a nail nipper and/or dremel-type snuff grinder, to a more viable healthy nail plate or bed tissue 6-10 nails in total. Silver nitrate was used for any petechial bleeding as necessary. Definitive antifungal treatment options, both pharmaceutical and surgical, have been reviewed and discussed with the patient. The patient solely prefers the use of intermittent/as needed professional debridement services for their nail condition and understands the need for additional periodic treatments to maintain effectiveness in symptomatic relief - 12747 Progress Notes * Ioana ADEN LDOB:1955 (69 yo F)Acc No.[id number]:07/25/2024 Progress Note Patient:?Ioana ADEN L Provider:?Silverio Zambrano DPM :1955???Age:69 Y???Sex:Female D ate:07/25/2024 Address:[address] [place] [address] [id number] Pcp:Carlos Huston MD Subjective: * Chief Complaints: * ???At Risk FootcarePainful N ail(s) aggrevated by shoes and causing difficulty standing/walking.Toe Irritation * HPI: ???At Risk footcare:?Pt States Last PCP Visit:?Date?05/04/2024 ???Toe pain:?Location:?B/L feet.?Duration:?several years.?Course:?worse.?Aggravated by:?shoes, any pressure.?Treatments:?change in shoes.? * ROS:?General/Constitutional:?Nausea?denies.?Vomiting?denies.?Hunger Thirst?denies.?Loss appetite?denies.?Chills?denies.?Fatigue?denies.?Fever?denies.?Night Sweats?denies.?Unexplained weight loss?denies.?Unexplained weight gain?denies.?HEENTM:?Dentures?admits.?Dizziness?denies.?Glasses/contacts?admits.?Retinopathy?den ies.?Blurred/double vision?denies.?TMJ?denies.?Discharge/drainage?denies.?Implants?denies.?Sore throat?denies.?Dental implants?denies.?Hard of hearing ?denies.?Difficulty chewing/swallowing/speaking?denies.?Nose bleeds?denies.?Sore mouth?denies.?Respiratory:?On O xygen?denies.?Pneumonia/pleurisy?denies.?Bronchitis?denies.?Emphysema?denies.?Co ughing?denies.?Cough blood?denies.?Shortness of breath?denies.?Wheezing?denies.?Cardiovascular:?Pacemaker?denies.?MVP?denies.?WPW?denies.?CHF?denies.?Heart attack?denies.?Septal defect?denies.?Rapid beat?denies.?Chest pain ?denies.?Atrial Fib.?denies.?Murmur/Palpitations?denies.?Gastrointestinal:?Hemorrhoids?denies.?Stomach/Abdominal pain?admits.?Dark blood stool?denies.?Irritable bowel ?denies.?Constipation?denies.?Diarrhea?denies.?Hematology:?Swelling?denies.?Clots?denies.?Varicose Veins?denies.?Bruising?denies.?Bleeding problem?denies.?Genitourinary:?Blood urine?denies.?Frequent/Painfu/urination/bladder control?denies.?Kidney stones?denies.?Infection (UTI)?denies.?Nephropathy?denies.?sex trans dis (STD)?denies.?Prostate?denies.?Musculoskeletal:?Hammertoes?admits.?Bunions?denies.?Back Pain?denies.?Muscle Cramps/ Resting?denies.?Muscle cramps / walking?denies.?Generalized aches and pains?admits.?Weakness?denies.?Integ.:?[place]?denies.?Scars?denies.?Corns/calluses?admits.?Ingrown nails?denies.?Painful nails?admits.?Open Sores?denies.?Rashes?denies.?Neurologic:?Difficulty sleeping?admits.?Brain disorder?denies.?Numbness?denies.?Balance t rouble?denies.?Confusion?denies.?Fainting/blackouts?denies.?Tingling?denies.?Adi mors?denies.? * Medical History:? * Surgical History:?tubal liga tion, b/l 1977Tooth extraction fusion of cervical spine 2002 * Hospitalization/Major Diagno stic Procedure:?Denies Past Hospitalization * Family History:?Mother: dece ased, stroke, diagnosed with Diabetic - NIDDM, Unspecified essential hypertension.?Father: , Heart Attack, diagnosed with Diabetic - NIDDM, Unspecified essential hypertension.?Siblings: foot problems, poor circulation, diagnosed with Diabetic - NIDDM, Unspecified essential hypertension.? * Social History:?Tobacco Use:?Tobacco use other than smoking?Are you an other tobacco user??No ?Tobacco Control (Standard)?Tobacco use:?Nonsmoker ?Additional Findings: Tobacco non-user?Current nonsmoker ???Drugs/Alcohol:?Drugs?Have you used drugs other than those for medical reasons in the past 12 months??Yes ?Marijuana??Yes ???Miscellaneous:?Caffeine: yes, frequency:, 2-3 cups per day. ?Children: yes, 2. ?Exercise: yes, walking, hiking, swimming, art gallery. ?Marital status: . 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 * Medications:?TakingglipiZIDE Tylenol , Notes to Pharmacist: PRNTart Nice Taking glipiZIDE Taking Tylenol , Notes to Pharmacist: PRNTaking Tart Nice Not-Taking/PRNglipiZIDE ER 2.5 MG Tablet Extended Release 24 Hour 1 tablet with breakfast Orally Once a day Medication List reviewed and reconciled with the patientNot-Taking/PRN glipiZIDE ER 2.5 MG Tablet Extended Release 24 Hour 1 tablet with breakfast Orally Once a day Medication List reviewed and reconciled with the patient * Allergies:?AcetaminophenOxyc odoneGluten: Sensitive - Side EffectsPercocet: Sensitive - Side Effectsyes[Allergies Verified] Objective: * Vitals:?Ht:5 ft 0 in, Wt:177 , BMI:34.56, Shoe size:7-7.5, BP:130/80mm Hg, BS:124, Ht-cm: 152.4 cm, Wt-k.29 kg. * ???Past Orders: ???Lab:HEMOGLOBIN A1C (GLYCO HEMOGLOBIN) (Order Date - 01/25/2024) (Collection Date & Time - 07/25/2024 02:28 PM) ? Value Reference Range ?HEMOGLOBIN A1C % (HH) 7.2 * Examination: ???Ophthalmology Referral: ?DIABETES EYE EXAM?Procedure Performed:?Yes ?Date of Exam Performed?07/05/2024 ?Diabetic Retinopathy Screening:?Yes ?Retinal Screening Performed:?Yes ?Findings of Diabetic Eye Exam:?no retinopathy?Nails: ?NAILS are:?Elongated, overgrown, dystrophic, lytic, greater than 3mm thick, discolored and friable with crumbly malodorous subungual debris, with pain on palpation , TA , T1 , T2 , T3 , T5 , T6 , T7 , T8, all other nails not described with characteristics as possessing mycosis are elongated, overgrown, and dystrophic.?Dermatologic: ?SKIN FINDINGS:?Skin exam reveals normal texture, elasticity, and turgor. There are no masses. The interspaces are clear, B/L, Skin exam reveals Keratotic lesion(s) located at , Medial , IPJ , T5 , SUB MTH (s) , 3 , Left , SUB MTH (s) , 4 , Left.?Orthopedic: ?MUSCLE STRENGTH:?5/5 all groups in a symmetrical fashion , B/L.?FOOT MORPHOLOGY:?Pes Cavus structure , No Charcot collapse/destruction noted at MTJ.?DIGITAL DEFORMITIES:?Digital contracture, PIPJ, 2-5 B/L, incompl-reducible to push-up test, no over, nor underlapping, with evidence of shoe producing skin irritation.?FOOTWEAR EVALUATION:?worn, non-supportive, shoe gear properties exacerbate patient's foot/toe deformity .?Vascular: ?DP PULSES (B):?04/29, B/L.?PT PULSES (B):?1/4, B/L.?CAPILLARY FILL TIME:?3 secs. per digit, B/L.?TROPHIC CONDITION-TEXTURE/ELASTICITY/TURGOR/HAIR GROWTH (B):?normal, B/L.?TEMPERTURE GRADIENT (C):?decreased, cool to cool, proximal to distal, B/L.?PIGMENTATION:?normal, B/L.?EDEMA (C):?absent, B/L.?Neurological: ?SENSORY:?Neurological exam reveals intact sensorium, pain sensation normal, vibration sensation intact, pinprick sensation is normal in the lower extremities, 5.07 monofilament test performed at plantar aspects of 5 varied sites per foot shows sensation, normal, B/L, Pt denies, anesthesia, burning, paresthesia, tingling, B/L.?DEEP TENDON REFLEXES:?Achilles , 0/4, B/L.?General Examination: ?GENERAL APPEARANCE:?Reveals a pleasant, alert, well nourished, well developed, well hydrated individual, who demonstrates proper attention to hygene/body habitus, and is in no acute distress.?ORIENTED:?person, place, and time.?FOOT EXAM:?Lower Extremity Neurological Exam performed:?Yes ?Visual exam of foot performed:?Yes ?Date?07/25/2024 ?Footwear Evaluation?Footwear Evaluation performed:?Yes??? Assessment: * Assessment: 1.?Type 2 diabetes mellitus without complication - E11.9???2.?Pain in right toe(s) - M79.674???3.?Tinea unguium - B35.1 (Primary)???4.?Pain in left toe(s) - M79.675???5.?Other hammer toe(s) (acquired), right foot - M20.41???Specify :Chronic problem, Worse (4) Rx Management (4)???6.?Other hammer toe(s) (acquired), left foot - M20.42???Specify :Chronic problem, Worse (4) Rx Management (4)??? Plan: * Treatment: 2.?Other hammer toe(s) (acqu ired), right foot? Start Extra Depth Orthopedic Shoes (1 Pair) with Customized Heat Molded Multidensity Innersoles (3 Pair), as directed, Dx: NIDDM (E11.9), Hammertoe Foot Deformity (M20.41,M20.42), Preulcerative Skin Lesion(s) (L85.1), 1, Refills 0.?? Notes: Patient Educated with: DIABETIC FOOT CARE INSTRUCTIONS.pdf (DIABETIC FOOT CARE INSTRUCTIONS.pdf)?? * Procedures:?Debride Nail 6-10:?Nail debridement?Due to the clinical pathology outlined in the exam findings, performance of this nail treatment is medically necessary as its management by an unskilled/untrained nonprofessional would put this patients foot and overall health at risk. Therefore, debridement to affected nail(s), as described in exam (?TA?,?T1?,?T2?,?T3?,?T5?,?T6?,?T7?,?T8?), was performed exclusively by the physician of record to reduce/remove overall nail length, girth, thickness, subungual debris, and necrotic tissue, by manual and/or electrical means through the use of a nail nipper and/or dremel-type snuff grinder, to a more viable healthy nail plate or bed tissue 6-10 nails in total. Silver nitrate was used for any petechial bleeding as necessary. Definitive antifungal treatment options, both pharmaceutical and surgical, have been reviewed and discussed with the patient. The patient solely prefers the use of intermittent/as needed professional debridement services for their nail condition and understands the need for additional periodic treatments to maintain effectiveness in symptomatic relief - 07659.? * Procedure Codes:?13594 DEBRI DE NAIL, 6 OR MORE * Preventive Medicine:? ??Counseling:?Discussion:?-14: Office or other outpatient visit for the evaluation and management of an established patient, which required a medically appropriate history and/or examination and MODERATE level of DECISION MAKING for: 1 OR MORE CHRONIC PROBLEM(S) THATS WORSENING, 2 STABLE CHRONIC PROBLEMS, A NEWLY DIAGNOSED PROBLEM WITH UNCERTAIN PROGNOSIS, AN ACUTE COMPLICATED INJURY WITH MULTIPLE TREATMENT OPTIONS, OR AN ACUTE PROBLEM WITH ACCOMPANYING SYSTEMIC SYMPTOMS, THAT POSE(S) A MODERATE RISK OF MORBIDITY. THIS CONDITION MAY ALSO INCLUDE RX DRUG MANAGEMENT, OR A DECISON FOR MINOR SURGERY. The visit on the day of the encounter encompassed interpreting the data and educating the patient as to the nature of their condition, treatment options available according to their individual PMH, meds, allergies, and overall health/living conditions, as well as any potential risks or complications that may occur from a failure to adhere to, and participate in, the recommended course of therapy. The discussion included a complete verbal, and/or written explanation of the examination results, any x-rays taken, the proposed diagnosis, and outline of the treatment plan. A schedule for future care needs was also explained. The patient verbalized an understanding of the instructions at this time and agreed to be an active participant in their treatment. If the patient should think of any questions or concerns after the visit, I have encouraged the patient to call the office.?Diabetic Footcare:?The patient was advised against future self nail/callus care due to inherent risks for infection, loss of limb/life given diabetes.?Digital Surgery:?We elected to try conservative treatment at the present time, due to the patients medical history.?Digital Treatment:?HT- I explained to the patient the possible etiologies of Hammertoes, including genetics/foot type/shoegear/activity level/exercise routine and the risks/benefits of all the different treatment options for their pain including: No treatment at all, Rest, Ice, New/supportive/wider/deeper Shoe gear, Digital Padding/Strapping/Taping/Bracing/Gel protective sleeves, Foot/Ankle AFO Bracing, Stretching exercises, Deep Tissue Massage, Arch support/shoe inserts with splay metatarsal padding, and Custom orthoses. I insisted that any digital devices be removed daily and not worn overnight for safety. The patient is to carefully examine the toes daily for any skin irritation while using any splinting or padding device. The advantages and disadvantages of each option were discussed and the patients questions re: shoe gear, padding, custom vs prefabricated inserts, activity level, and consistency in home treatment regimens for optimal success were answered to their verbally confirmed satisfaction.?Shoe Gear Counseling:?SHOE Rx - The patient was counseled in great detail on their muscoloskeletal foot and toe deformities which coincided with the dermatological presentations visualized on exam. We discussed how their deformities put the integrity of their feet at risk for potential pedal complications which makes the accomidative diabetic shoes and cutomizable inserts medically necessary. We discussed the different shoe and insert treatment types and options, as well as the important advantages for adhering to regularly wearing these accomidative devices daily. The patient was made aware of the fact that a failure to abide by these recommedations may be deleterious to their foot health as they are able to prevent many pedal complications such as skin irritation, skin ulceration, infection, and even loss of toe/foot/leg/or life. Time was also spent with the patient dispensing and discussing proper diabetic footcare techniques including daily skin moisturization, daily foot inspection for any interruption in skin integrity including open lesions, or sign of infection such as redness/malodor/drainage/swelling. Also discussed and recommended were procedures regarding daily shoe inspection for the presence of internal foreign bodies as well as any visualized irregular shoe or insert wear. Patient questions re: shoes, inserts, and self foot inspections were answered to their satisfaction as the patient verbally confirmed a full understanding of the above information. A Rx for Extra Depth Orthopedic Shoes with 3 pair of custom heat-molded inserts was dispensed.? ??Screening/Special Tests:?Fall Risk?Screening:?No falls in the past year ?FALLS: Screening for Future Fall Risk?Have you had any falls with injury in the past year??No * Follow Up:?1 Year * Images: * Sign off status: Completed true * Provider:?Silverio Zambrano DPM Date:?2024 Generated for Tori perkins/Bibiana/Nitishitting on:?09/06/2024 11:13 AM EDT History and Physical Notes * HPI (History of Present Illness) Category Sub-Category Detail Notes Category Not es Toe pain Location: B/L feet Duration: several years Course: worse Aggravated by: shoes, any pressure Treatments: change in shoes At Risk footcare Pt States Last PCP Visit: Date: Examination Category Sub-Category Detail Notes Category Not es Neurological SENSORY: Neurological exa m reveals intact sensorium, pain sensation normal, vibration sensation intact, pinprick sensation is normal in the lower extremities, 5.07 monofilament test performed at plantar aspects of 5 varied sites per foot shows sensation, normal, B/L, Pt denies, anesthesia, burning, paresthesia, tingling, B/L DEEP TENDON REFLEXES: Achilles , 0/4, B/ L Dermatologic SKIN FINDINGS: Skin exam reveal s normal texture, elasticity, and turgor. There are no masses. The interspaces are clear, B/L, Skin exam reveals Keratotic lesion(s) located at , Medial , IPJ , T5 , SUB MTH (s) , 3 , Left , SUB MTH (s) , 4 , Left Orthopedic FOOT MORPHOLOGY: Pes Cavus struc ture , No Charcot collapse/destruction noted at MTJ FOOTWEAR EVALUATION: worn, non-supportiv e, shoe gear properties exacerbate patient's foot/toe deformity DIGITAL DEFORMITIES: Digital contracture , PIPJ, 2-5 B/L, incompl-reducible to push-up test, no over, nor underlapping, with evidence of shoe producing skin irritation MUSCLE STRENGTH: 5/5 all groups in a symmetrical fashion , B/L General Examination GENERAL APPEARANCE: Reveals a pleasant, alert, well nourished, well developed, well hydrated individual, who demonstrates proper attention to hygene/body habitus, and is in no acute distress FOOT EXAM: Lower Extremity Neurological Exa m performed:: Yes Visual exam of foot performed:: Yes Date: 07/25/2024 ORIENTED: person, place, and t amira Footwear Evaluation Footwear Evaluation performe d:: Yes Ophthalmology Referral DIABETES EYE EXAM Procedure Perform ed:: Yes ?Date of Exam Performed: 07/05/2024 Diabetic Retinopathy Screening:: Yes Retinal Screening Performed:: Yes Findings of Diabetic Eye Exam:: no retin opathy Vascular DP PULSES (B): 1/4, B/L PT PULSES (B): 1/4, B/L CAPILLARY FILL TIME: 3 secs. per digit, B/L TEMPERTURE GRADIENT (C): decreased, cool to cool, proximal to distal, B/L TROPHIC CONDITION-TEXTURE/ELASTICITY/TURGOR/HAIR GROWTH (B): normal, B/L EDEMA (C): absent, B/L PIGMENTATION: normal, B/L Nails NAILS are: Elongated, overg rown, dystrophic, lytic, greater than 3mm thick, discolored and friable with crumbly malodorous subungual debris, with pain on palpation , TA , T1 , T2 , T3 , T5 , T6 , T7 , T8, all other nails not described with characteristics as possessing mycosis are elongated, overgrown, and dystrophic
--- OUTSIDE RECORDS SUMMARY | 2024-09-06 11:13 | XMS_ITS | Patient Health Record ---
[facility] Address [address] [place] [address] Care Team Providers Care Land Surveyor Manager Name Role Phone Robel LENNON, [facility] Provider Silverio Mckeon Unavailable [phone] Allergies Allergen (clinical drug ingredient) Drug/Non Drug Allergy documented on EMR Reaction Allergy Type Onset Date Status acetaminophen / oxycodone Percocet Sensitive Drug Allergy Active acetaminophen Acetaminophen Unknown Drug Allergy Active Gluten Gluten Sensitive Allergy Active oxycodone Oxycodone Unknown Drug Allergy Active Results Component Value Reference Range Notes HEMOGLOBIN A1C (GLYCOHEMOGLO BIN) Reviewed date:07/25/2024 02:29:33 PM Interpretation: Performing Lab: Notes/Report: HEMOGLOBIN A1C % (HH) 7.2 Reason For Referral No Information Medications Medication SIG (Take, Route, Frequency, Duration) [...] Once a day for 30 day(s) Not-Taking Immunizations Vaccine Route Administration Date Status Comme nts COVID-19 Moderna Vaccine Unknown 01/13/2022 Administered 1st dose: 12/04/2000 Moderna 2nd dose: 07/17/20 Moderna 3rd dose:02/20/2021 Moderna 4th dose: 07/23/2021 Pfizer Influenza Unknown 01/24/2022 Administered Social History Tobacco Use: Social History Observation Description Date Details (start date - stop date) Never Smoker NA - NA Tobacco use other than smoking: Question Answer Notes Are you an other tobacco user? No Tobacco Control (Standard) Question Answer Notes Tobacco use: Nonsmoker Additional Findings: Tobacco non-user Current no nsmoker Problems Problem Type SNOMED Code ICD Code Onset Dates Problem Status W/U Status Risk Notes Problem Acquired hammer toe of right foot (479884673815472 5) Other hammer toe(s) (acquired), right foot (M20.41) Active confirmed Problem Acquired hammer toe of left foot (147687291378496 3) Other hammer toe(s) (acquired), left foot (M20.42) Active confirmed Problem Type 2 diabetes mellitus without complication (948674320) Type 2 diabetes mellitus without complication (E11.9) Active confirmed Vital Signs Blood pressure diastolic 80 mm Hg 07/25/2024 Height 5 ft 0 in in 07/25/2024 Blood pressure systolic 130 mm Hg 07/25/2024 Weight 177 lbs 07/25/2024 BMI 34.56 kg/m2 07/25/2024 Procedures Procedure Date Ordered Date Performed Result Body Sit e 32404-UPRECZZ NAIL, 6 OR MORE 07/25/2024 N/A Encounters Encounter Location Date Provider Diagnosis [address] [address] 07/25/2024 Silverio Zambrano Type 2 diabetes mellitus without complication E11.9 ; Pain in right toe(s) M79.674 ; Tinea unguium B35.1 ; Pain in left toe(s) M79.675 ; Other hammer toe(s) (acquired), right foot M20.41 and Other hammer toe(s) (acquired), left foot M20.42 [facility] [address] 09/30/2023 Silverio Zambrano [address] [address] 04/24/2024 Silverio Zambrano Assessments Encounter Date Diagnosis (ICD Code) Assessment [...] foot (ICD-10 - M20.42) Plan Of Treatment Pending Test Test Name Order Date [id number]-[id number] NAIL, 6 OR MORE 08/04/2022 65368-[id number] NAIL, 6 OR MORE 11/03/2022 32681-AYHLTBT NAIL, 6 OR MORE 05/04/2023 32459-LVTBELQ NAIL, 6 OR MORE 07/25/2024 61702-Rbraovcd Plate 11/03/2022 Next Appt Details Provider Name:Silverio Zambrano , 07/27/2025 01:00:00 PM, [address] [facility], [place], [address], Insurance Providers Payer Name Payer Address Payer Phone Subscriber Number Group Number Insured Name Patient Relationship to Insured Coverage Start Date Coverage End Date [facility] 65 Medicare Preferred [address] [place] [address] [phone] [id number] Ioana Kinsey Self - patient is the insured Medical (General) History Medical History History ICD Code Anxiety Arthritis Back,Hip,and Knee pain Broken bones neck type II diabetes Headaches/Migraines Measles Mumps Joint implants/screws neck Surgical History Surgery Date(Month/Year) tubal ligation, b/l 1976 Tooth extraction fusion of cervical spine 2002
--- OUTSIDE RECORDS SUMMARY | 2024-09-06 11:13 | XMS_ITS ---
Author Organization [facility] [place] Address [address] [place] [address] Care Team Providers Care Special Education Kindergarten Teacher Name Role Phone Robel LENNON, [facility] Provider Silverio Mckeon [phone] REASON FOR VISIT r/s Encounters Encounter Location Date Provider Diagnosis [address] [address] 04/24/2024 Silverio Zambrano Plan Of Treatment Next Appt Details Provider Name:Silverio Zambrano , 07/27/2025 01:00:00 PM, [address] [place], [address], Progress Notes * Ioana ADEN LDOB:1955 (68 yo F)Acc No.[id number]:04/24/2024 Patient:?Ioana ADEN :1955???Age:68 Y???Sex:Female Address:[address] [place], [address] * true * Date:? Generated for Noei gregorio/Bibiana/eTransmitting on:?09/06/2024 11:12 AM EDT
--- OUTSIDE RECORDS SUMMARY | 2024-09-06 11:13 | XMS_ITS ---
Author Organization [facility] [place] Address [address] [place] [address] Care Team Providers Care Keg Filler Name Role Phone Robel LENNON, Carlos Primary Care Provider Silverio Mckeon Unavailable [phone] Encounters Encounter Location Date Provider Diagnosis [address] [address] 05/02/2024 Silverio Zambrano Plan Of Treatment Next Appt Details Provider Name:Silverio Zambrano , 07/27/2025 01:00:00 PM, [address] [place], [address], Progress Notes * Ioana ADEN LDOB:1955 (69 yo F)Acc No.[id number]:05/02/2024 Progress Note Patient:?Ioana ADEN Provider:?Silverio Zambrano DPM :1955???Age:68 Y???Sex:Female D ate:05/02/2024 Address[address] [place] Pcp:Carlos Huston MD Subjective: * Chief Complaints: * ??? * Medical History:? Objective: * Vitals:? Assessment: Plan: * Treatment: * Images: * The named appointment provid er may or may not be the originator of this progress note, and it is not deemed complete until electronically signed by the appointment provider. Sign off status: Pending * Provider:Tj Zambrano DPM Date:?2024 Generated for Tori perkins/Bibiana/Delroy on:?09/06/2024 11:12 AM EDT
== END 2024-09-06 10:50 | disposition home or self-care (01) ==
LOC: HO.HMCC 10:12
PROVIDERS: PCP Internal Medicine; Visit Provider Internal Medicine
DX: Z00.00 Encounter for general adult medical examination without abnormal findings (principal); E11.9 Type 2 diabetes mellitus without complications; E66.09 Other obesity due to excess calories; Z68.33 Body mass index [BMI] 33.0-33.9, adult; R25.2 Cramp and spasm; Z28.3 Underimmunization status; Z23 Encounter for immunization

== ENCOUNTER 2024-09-06 10:11 | Outpatient (REF) | payer MEDICARE, SELFPAY ==
[2024-09-06 13:36] LABS: MANUAL DIFF FLAG NO
[2024-09-06 13:56] LABS: Basophils Percent Auto 0.6 % (0-2); Eosinophils Absolute Auto 0.1 X10*3/uL (0.0-0.4); Eosinophils Percent Auto 0.9 % (0-4); Hemoglobin 14.5 g/dl (12.0-16.0); Imm Gran Abs Auto 0.02 X10*3/uL (0.00-0.03); Imm Gran Pct Auto 0.3 % (0.0-0.4); Lymphocytes Absolute Auto 1.9 X10*3/uL (1.2-4.9); Lymphocytes Percent Auto 26.2 % (20-40); Mean Corpuscular HGB Conc 33.7 g/dl (31.0-35.0); Mean Corpuscular Hemoglobin 30.6 pg (27.0-33.0); Mean Corpuscular Volume 90.7 fL (80.0-98.0); Mean Platelet Volume 10.6 fL (9.4-12.3); Monocytes Absolute Auto 0.6 X10*3/uL (0.1-1.2); Monocytes Percent Auto 8.4 % (2-11); Neutrophils Absolute Auto 4.5 x10*3/uL (2.0-8.3); Neutrophils Percent Auto 63.6 % (45-73); Platelet Count 361 X10*3/uL (160-400); Red Blood Count 4.74 X10*6/uL (4.20-5.50); Red Cell Distribution Width 11.7 % (11.0-16.0); White Blood Count 7.1 X10*3/uL (4.8-10.8)
[2024-09-06 14:10] LABS: Estimated Average Glucose 223 mg/dL; Hemoglobin A1c % 9.4 % (<6.0)
[2024-09-06 14:34] LABS: Alanine Aminotransferase 21 U/L (0-31); Albumin Level 4.4 g/dL (3.5-5.0); Anion Gap 12 (12-20); Aspartate Amino Transferase 25 U/L (5-31); Bilirubin Total 0.4 mg/dL (0.0-1.0); Blood Urea Nitrogen 13 mg/dL (9-16); Calcium 9.4 mg/dL (8.4-10.2); Carbon Dioxide 24 mmol/L (22-29); Chloride 104 mmol/L (96-108); Estimated Glomerular Filt Rate > 60; Glucose Random 248 mg/dL (60-115); Potassium 4.4 mmol/L (3.3-5.1); Sodium 136 mmol/L (135-145); Total Protein 7.7 g/dL (6.5-8.0)
[2024-09-06 14:43] LABS: Alkaline Phosphatase 108 U/L (39-117); Creatinine Urine 78.71 mg/dL; Microalbum/Creatinine Ratio Ur 21.5 ug/mg cr (<30); TSH reflex Free T4 0.96 uIU/mL (0.32-4.0)
[2024-09-07 09:53] LABS: LDL Cholesterol Direct 163 mg/dL (<100)
== END 2024-09-06 10:12 | disposition home or self-care (01) ==
LOC: HO.HMGCLDS 10:11
PROVIDERS: PCP Internal Medicine; Visit Provider Internal Medicine
DX: Z00.00 Encounter for general adult medical examination without abnormal findings (principal); Z23 Encounter for immunization; E11.9 Type 2 diabetes mellitus without complications; E66.09 Other obesity due to excess calories; Z68.33 Body mass index [BMI] 33.0-33.9, adult; R25.2 Cramp and spasm; E78.5 Hyperlipidemia, unspecified
CPT/HCPCS: 36415; 80053; 82043; 82570; 83036; 83721; 84443; 85025; 90471; 90715; 96127; 99397

== ENCOUNTER 2024-09-07 08:17 | Outpatient (AMB) | payer MEDICARE, SELFPAY ==
--- OUTSIDE RECORDS SUMMARY | 2024-09-07 08:30 | XMS_ITS | Patient Health Record ---
[facility] Address [address] [place] [address] Care Team Providers Care Long Chain Quiller Tender Name Role Phone Robel LENNON, [facility] Silverio Mckeon Unavailable [phone] Allergies Allergen (clinical drug ingredient) Drug/Non Drug [...] Problem Acquired hammer toe of right foot (816275270625543 5) Other hammer toe(s) (acquired), right foot (M20.41) Active confirmed Problem Acquired hammer toe of left foot (774451837516907 3) Other hammer toe(s) (acquired), left foot (M20.42) Active confirmed Problem Type 2 diabetes mellitus without complication (085474250) Type 2 diabetes mellitus without complication (E11.9) Active confirmed Vital Signs Blood pressure diastolic 80 mm Hg 07/25/2024 Height 5 ft 0 in in 07/25/2024 Blood pressure systolic 130 mm Hg 07/25/2024 Weight 177 lbs 07/25/2024 BMI 34.56 kg/m2 07/25/2024 Procedures Procedure Date Ordered Date Performed Result Body Sit e 37718-CVTCLRH NAIL, 6 OR MORE 07/25/2024 N/A Encounters Encounter Location Date Provider Diagnosis [address] [address] 07/25/2024 Silverio Zambrano Type 2 diabetes mellitus without complication E11.9 ; Pain in right toe(s) M79.674 ; Tinea unguium B35.1 ; Pain in left toe(s) M79.675 ; Other hammer toe(s) (acquired), right foot M20.41 and Other hammer toe(s) (acquired), left foot M20.42 [facility] [address] 09/30/2023 Silverio Zambrano [address] [address] 04/24/2024 Silverio Zambrano Assessments Encounter Date Diagnosis [...] Treatment Pending Test Test Name Order Date [id number] NAIL, 6 OR MORE 08/04/2022 [id number] NAIL, 6 OR MORE 11/03/2022 61027-TTDFLYC NAIL, 6 OR MORE 05/04/2023 70408-CTLTNFX NAIL, 6 OR MORE 07/25/2024 77453-Ivrwulud Plate 11/03/2022 Next Appt Details Provider Name:Silverio Zambrano , 07/27/2025 01:00:00 PM, [address] [facility], [place], [address], Insurance Providers Payer Name Payer Address Payer Phone Subscriber Number Group Number Insured Name Patient Relationship to Insured Coverage Start Date Coverage End Date [facility] 65 Medicare Preferred [address] [place] [address] [id number] Ioana Kinsey Self - patient is the insured Medical (General) History Medical History History ICD Code Anxiety Arthritis Back,Hip,and Knee pain Broken bones neck type II diabetes Headaches/Migraines Measles Mumps Joint implants/screws neck Surgical History Surgery Date(Month/Year) tubal ligation, b/l 1976 Tooth extraction fusion of cervical spine 2002
--- OUTSIDE RECORDS SUMMARY | 2024-09-07 08:30 | XMS_ITS ---
Author Organization [facility] [place] Address [address] [place] [address] Care Team Providers Care Glass Rolling Machine Operator Name Role Phone Robel LENNON, Carlos Primary Care Provider Silverio Mckeon Unavailable [phone] Encounters Encounter Location Date Provider Diagnosis [address] [address] 05/02/2024 Silverio Zambrano Plan Of Treatment Next Appt Details Provider Name:Silverio Zambrano , 07/27/2025 01:00:00 PM, [address] [place], [address], Progress Notes * Ioana ADEN LDOB:1955 (69 yo F)Acc No.[id number]:05/02/2024 Progress Note Patient:?Ioana ADEN Provider:?Silverio Zambrano DPM :1955???Age:68 Y???Sex:Female D ate:05/02/2024 Address[address] [place] Pcp:Carlos Huston MD Subjective: * Chief Complaints: [...] Zambrano DPM Date:?2024 Generated for Tori perkins/Bibiana/Delroy on:?09/07/2024 08:30 AM EDT
--- OUTSIDE RECORDS SUMMARY | 2024-09-07 08:31 | XMS_ITS ---
Author Organization [facility] [place] Address [address] [facility] [place] [address] Care Team Providers Care Education Program Coordinator Name Role Phone Robel LENNON, [facility] Primary [facility] Provider Silverio Mckeon Unavailable [phone] Allergies Allergen (clinical drug ingredient) Drug/Non Drug [...] Ordered Date Performed Result Body Sit e 21226-DLPSHZT NAIL, 6 OR MORE 07/25/2024 N/A Encounters Encounter Location Date Provider Diagnosis [facility] [place] [address] [place] [address] 07/25/2024 Silverio Zambrano Type 2 diabetes mellitus [...] INSTRUCTIONS.pdf) Pending Test Test Name Order Date [id number] NAIL, 6 OR MORE 07/25/2024 Next Appt Details Follow Up: 1 Year, Reason: Provider Name:Silverio Zambrano , 07/27/2025 01:00:00 PM, [address] [place], [address], Procedure Notes * Category Sub-Category Detail Notes [...] use of a nail nipper and/or dremel-type wood grinder, to a more viable healthy nail [...] to maintain effectiveness in symptomatic relief - 64260 Progress Notes * Ioana ADEN LDOB:1955 (69 yo F)Acc No.[id number]:07/25/2024 Progress Note Patient:?Ioana ADEN L Provider:?Silverio Zambrano DPM :1955???Age:69 Y???Sex:Female D ate:07/25/2024 Address:[address] [place] [address] [id number] Pcp:Carlos Huston MD Subjective: * Chief Complaints: [...] art gallery. ?Marital status: . 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 * Medications:?TakingglipiZIDE Tylenol , Notes to Pharmacist: [...] use of a nail nipper and/or dremel-type wood grinder, to a more viable healthy nail [...] to maintain effectiveness in symptomatic relief - 61344.? * Procedure Codes:?70441 DEBRI DE NAIL, 6 OR MORE * [...] Zambrano DPM Date:?2024 Generated for Tori perkins/Bibiana/Nitishitting on:?09/07/2024 08:31 AM EDT History and Physical Notes * [...]
--- OUTSIDE RECORDS SUMMARY | 2024-09-07 08:31 | XMS_ITS ---
Author Organization [facility] [place] Address [address] [place] [address] Care Team Providers Care Cosmetician Apprentice Name Role Phone Robel LENNON, [facility] Primary Care Provider Silverio Mckeon [phone] REASON FOR VISIT r/s Encounters Encounter Location Date Provider Diagnosis [address] [address] 04/24/2024 Silverio Zambrano Plan Of Treatment Next Appt Details Provider Name:Silverio Zambrano , 07/27/2025 01:00:00 PM, [address] [place], [address], Progress Notes * Ioana ADEN LDOB:1955 (68 yo F)Acc No.[id number]:04/24/2024 Patient:?Ioana ADEN :1955???Age:68 Y???Sex:Female Address:[address] [place], [address] * true * Date:? Generated for Noei gregorio/Bibiana/eTransmitting on:?09/07/2024 08:30 AM EDT
--- NOTE | 2024-09-07 09:43 | A.OFFPC_ITS ---
Intake Visit Reasons: Discuss Labs Allergies acetaminophen [Percocet] Adverse Reaction (Unknown, Verified 09/06/24 10:16) N/V oxycodone [Percocet] Adverse Reaction (Unknown, Verified 09/06/24 10:16) N/V Medication List - Last Reconciled 09/07/24 by Carlos Huston MD blood sugar diagnostic (OneTouch Ultra Test strips) Use to check fasting blood sugar daily blood-glucose meter ([employer]Touch Ultra2 Meter) Use to check fasting blood sugar daily glipizide 5 mg PO DAILY lancets ([employer]Touch Delica Lancets) use to check fasting blood sugar daily magnesium glycinate 100 mg PO DAILY potassium chloride ER 10 mEq PO DAILY Tobacco use date assessed: 09/06/24 Dental Screening Dental Screen Date: 09/06/24 HPI Discuss Labs HPI Details History - The patient is a 69-year-old female pr esenting with a history of Type 2 Diabetes Mellitus. - The patient noted concerns regarding h er recent Hemoglobin A1c level of 9.4%, indicating poor glycemic control. - Multiple self-monitored blood glucose readings showed elevated levels, with fasting measurements over 200 mg/dL, and postprandial readings of 180-190 mg/dL. - The patient reported recent dietary no n-compliance, including increased intake of pineapples, which may have contributed to elevated blood glucose levels. - The patient denies any symptomatic elenita ydipsia, polyuria, or nocturia. Problem List - Type 2 Diabetes Mellitus uncontroled Patient Instructions - Monitor fasting blood sugars daily. - If fasting blood sugar readings are co nsistently above 150 mg/dL, take an additional half tablet of glipizide at night in addition to the morning dose. - Avoid high sugar fruits and manage car bohydrate intake carefully. - Report blood sugar readings and curren t medication doses by of the following week through the online patient portal. Review of Systems - General: No fever no chills - Neurological: No headaches no dizziness - Ear nose throat: No sore throat no hearing difficulty no ear pain - Cardiovascular: No syncope, no chest pain, no palpitations - Gastrointestinal: No nausea vomiting or diarrhea - Endocrine: No polyuria polydipsia no heat intolerance - Genitourinary: No dysuria , no blood in urine [facility] Medical History 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 Surgical History History of tooth extraction Hx of fusion of cervical spine History of bilateral tubal ligation Family History Father History of heart attack 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 Mother 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 Stroke Brother TIA (transient ischemic attack) Maternal Grandfather No problems noted. Maternal Grandmother No problems noted. Paternal Grandfather No problems noted. Paternal Grandmother No problems noted. Brother No problems noted. Brother No problems noted. Brother No problems noted. Son No problems noted. Daughter No problems noted. Sister Melanoma Sister No problems noted. Sister No problems noted. Sister No problems noted. Sister No problems noted. Other Mental health disorder Social History Housing: House Alcohol intake: current Alcohol intake frequency: a few times a week Alcohol type: beer and wine Patient Tobacco Use Status: Former Tobacco user e-Cigarette/Vaping Use: Never Used Second Hand Smoke Exposure: No Substance Use Type: Marijuana service: No Current occupational status: retired Cognitive needs: No Hearing needs: No Vision needs: Yes (GLASSES) Questionnaire Thrive Questionnaire Date Thrive assessed: 08/30/24 I am a: Patient What is your living situation today?: I have a steady place to live Within the past 12 months, did the food you bought not last and you didn't have the money to get more?: Never true Within the past 12 months, did you worry whether your food would run out before you got money to buy more?: Never true Do you have trouble paying for medicines?: No Do you have trouble getting transportation to medical appointments?: No Do you have trouble paying your heating and electricity bill?: No Do you have trouble taking care of your child, family member or friend?: No Do you have trouble with day-to-day activities such as bathing, preparing meals, shopping, managing finances, etc.?: No Are you currently unemployed and looking for a job?: No Are you interested in more education?: No THRIVE Score: 0 ANJELICA-7 AMB Questionnaire ANJELICA-7 Date ANJELICA - 7 assessed: 09/06/24 Source: Developed by Drs. Austin Hastings, Renetta Parsons, Brian Casey and colleagues, with an educational wayne from [employer]. Physical exam (Primary Care) Tobacco/Smoking Status: Tobacco use Status Tobacco use date assessed 09/06/24 09/07/24 09:44 Patient Tobacco Use Status Former Tobacco user 09/07/24 09:44 e-Cigarette/Vaping Use Never Used 09/07/24 09:44 Thrive Assessment: Date of Thrive Assessment Date Thrive assessed 08/30/24 09/07/24 09:44 Telehealth Telehealth Telehealth Platform: Shoutly Location of provider rendering services: practice address Location of patient: address on file Patient Identification confirmed using: Name, : Yes Telehealth method: video Patient verbally consented to treatment: Yes Patient verbally consented to billing insurance company: Yes Patient informed of any privacy concerns related to visit: Yes Minutes spent on Phone/Video with Pt.: 14 Coding Level of Care Code Tele Est Pt Level 3 (75720) Diagnoses Type 2 diabetes mellitus without complication, without long-term current use of insulin E11.9 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 complication status: without complication 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 half-way insulin use: without moth exterminator use 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 type: type 2 Hyperglycemia R73.9 Assessment & Plan Assessment & Plan (1) 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: Code(s): E11.9 - Type 2 diabetes mellitus without complications Category: Medical Qualifiers: 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 complication status: without complication 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 half-way insulin use: without moth exterminator use 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 type: type 2 Qualified Code(s): E11.9 - Type 2 diabetes mellitus without complications (2) Hyperglycemia: Code(s): R73.9 - Hyperglycemia, unspecified Category: Medical Plan History - The patient is a 69-year-old female presenting with a history of Type 2 Di abetes Mellitus. - The patient noted concerns regarding her recent Hemoglobin A1c level of 9.4%, indicating poor glycemic control. - Multiple self-monitored blood glucose readings showed elevated levels, with fasting measurements over 200 mg/dL, and postprandial readings of 180-190 mg/dL. - The patient reported recent dietary non-compliance, including increased intake of pineapples, which may have contributed to elevated blood glucose levels. - The patient denies any symptomatic polydipsia, polyuria, or nocturia. Problem List - Type 2 Diabetes Mellitus uncontroled Patient Instructions - Monitor fasting blood sugars daily. - If fasting blood sugar readings are consistently above 150 mg/dL, take an additional half tablet of glipizide at night in addition to the morning dose. - Avoid high sugar fruits and manage carbohydrate intake carefully. - Report blood sugar readings and current medication doses by of the following week through the online patient portal. Orders: Orders Hemoglobin A1c 3 Months E11.9 - Type 2 diabetes mellitus without complications
== END 2024-09-07 09:46 | disposition home or self-care (01) ==
PROVIDERS: PCP Internal Medicine; Visit Provider Internal Medicine
DX: E11.65 Type 2 diabetes mellitus with hyperglycemia (principal)

== ENCOUNTER → 2024-09-07 08:17 | Outpatient (BNVA) | payer MEDICARE, SELFPAY | PROVIDERS: PCP Internal Medicine; Visit Provider Internal Medicine | DX: Z13.89 Encounter for screening for other disorder (principal) ==

== ENCOUNTER 2024-09-14 11:19 | Outpatient (AMB) | payer MEDICARE, SELFPAY ==
--- NOTE | 2024-09-14 11:29 | MHC.OFFWIV ---
Intake Vital Signs 09/14/24 11:32 09/14/24 11:32 Weight 184 lb BP 130/90 H 161/79 H Blood Pressure Location Lt brachial Lt brachial Position Sitting Sitting Respiration 16 Pulse 78 90 Pulse Source Pulse Oximeter Pulse Oximeter Pulse Oximetry (%) 97 98 Oxygen Delivery Method Room Air Room Air Intake Visit Reasons: EP High BS 326, pain under breast on lt side Patient Tobacco Use Status: Former Tobacco user Allergies acetaminophen [Percocet] Adverse Reaction (Unknown, Verified 09/14/24 11:31) N/V oxycodone [Percocet] Adverse Reaction (Unknown, Verified 09/14/24 11:31) N/V Do you need a note to return to daycare/school/sports/work: No HPI HPI Comments History of Present Illness Details 69 y/o Female patient who presents to the walk in clinic with c/o Hyperglycemia. She has been monitoring her BG at home for 2 weeks now. She was seen by PCP back in 09/07 and instructed to keep a Log of BG numbers and post them on the Patient's Portal, which she did yesterday, but did not get an answer back. She is currently on Glipizide alone and A1c 9.4% Pt does not feel comfortable injecting herself with Insulin. Her Last Liver and Kidney functions were Normal. The review of her Log Book, does show poor understanding of Diabetes Diet. Pt could benefit from seeing Photographic Equipment Assembler. Review of WG messages does show that Dr. Huston did reply back to patient and informed her to only check BG BID (AM & PM), keep a Log for 10 days then F/U. [facility] Medical History 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 Surgical History History of tooth extraction Hx of fusion of cervical spine History of bilateral tubal ligation Family History Father History of heart attack 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 Mother 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 Stroke Brother TIA (transient ischemic attack) Maternal Grandfather No problems noted. Maternal Grandmother No problems noted. Paternal Grandfather No problems noted. Paternal Grandmother No problems noted. Brother No problems noted. Brother No problems noted. Brother No problems noted. Son No problems noted. Daughter No problems noted. Sister Melanoma Sister No problems noted. Sister No problems noted. Sister No problems noted. Sister No problems noted. Other Mental health disorder Social History Housing: House Alcohol intake: current Alcohol intake frequency: a few times a week Alcohol type: beer and wine Patient Tobacco Use Status: Former Tobacco user e-Cigarette/Vaping Use: Never Used Second Hand Smoke Exposure: No Substance Use Type: Marijuana service: No Current occupational status: retired Cognitive needs: No Hearing needs: No Vision needs: Yes (GLASSES) Review of Systems Const All systems reviewed & are unremarkable except as noted in HPI and below Physical Exam Vital Signs: Last Vital Signs Pulse 90 09/14/24 11:32 Resp 16 09/14/24 11:32 BP 161/79 H 09/14/24 11:32 Pulse Ox 98 09/14/24 11:32 Oxygen Delivery Method Room Air 09/14/24 11:32 Const General: no acute distress and anxious Nutritional Appearance: obese morbidly obese Orientation/consciousness: patient oriented x3 Resp Effort & Inspection: normal respiratory effort Auscultation: clear to auscultation bilaterally Cardio Heart sounds: S1 normal heart sound present and S2 normal heart sound present GI Palpation (GI): Soft to palpation and Tenderness to palpation present (GI) in the epigastrum, in the LLQ and in the LUQ Auscultation: normal bowel sounds Neuro General: patient oriented x3 Results AMB Random Glucose (hemocue) AMB Random Glucose (hemocue) 265 mg/dL Last Edit by MACKENZIE Foote on 09/14/24 12:09 Results Reviewed Results Reviewed: Laboratory Last Values Random Glu (Clinic) 265 mg/dL 09/14/24 12:08 Assessment & Plan Assessment & Plan (1) Hyperglycemia: Code(s): R73.9 - Hyperglycemia, unspecified Plan: Ordered Metformin 500 mg at Bedtime. Educated on Medication side effects. Discussed in detail Insulin benefits - Patient not comfortable injecting herself. Review of BG Log does show poor nutrition insight. Pt could benefit with seeing Photographic Equipment Assembler. Pt to f/u with PCP 1-2 weeks from now. Orders: Orders AMB Random Glucose (hemocue) Today Z13.9 - Encounter for screening, unspecified Medications: New metformin 500 mg PO DAILY 30 days 30 tabs 0RF R73.9 - Hyperglycemia, unspecified Coding Level of Care Code Est Pt Level 4 (02318) Diagnoses Hyperglycemia R73.9 Time Spent (min) 20
[2024-09-14 11:32] VITALS: BP 130/90; BP 161/79; PULSE 78; PULSE 90; RESP 16; O2SAT 97; O2SAT 98
--- NOTE | 2024-09-14 11:35 | MHC.OFFWIV ---
Intake Vital Signs 09/14/24 11:32 09/14/24 11:32 Weight 184 lb BP 161/79 H Blood Pressure Location Lt brachial Position Sitting Respiration 16 Pulse 90 Pulse Source Pulse Oximeter Pulse Oximetry (%) 98 Oxygen Delivery Method Room Air Intake Visit Reasons: EP High BS 326, pain under breast on lt side Patient Tobacco Use Status: Former Tobacco user Allergies acetaminophen [Percocet] Adverse Reaction (Unknown, Verified 09/14/24 11:31) N/V oxycodone [Percocet] Adverse Reaction (Unknown, Verified 09/14/24 11:31) N/V PFSH Medical History 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 Surgical History History of tooth extraction Hx of fusion of cervical spine History of bilateral tubal ligation Family History Father History of heart attack 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 Mother 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 Stroke Brother TIA (transient ischemic attack) Maternal Grandfather No problems noted. Maternal Grandmother No problems noted. Paternal Grandfather No problems noted. Paternal Grandmother No problems noted. Brother No problems noted. Brother No problems noted. Brother No problems noted. Son No problems noted. Daughter No problems noted. Sister Melanoma Sister No problems noted. Sister No problems noted. Sister No problems noted. Sister No problems noted. Other Mental health disorder Social History Housing: House Alcohol intake: current Alcohol intake frequency: a few times a week Alcohol type: beer and wine Patient Tobacco Use Status: Former Tobacco user e-Cigarette/Vaping Use: Never Used Second Hand Smoke Exposure: No Substance Use Type: Marijuana service: No Current occupational status: retired Cognitive needs: No Hearing needs: No Vision needs: Yes (GLASSES) Physical Exam Vital Signs: Last Vital Signs Pulse 90 09/14/24 11:32 Resp 16 09/14/24 11:32 BP 161/79 H 09/14/24 11:32 Pulse Ox 98 09/14/24 11:32 Oxygen Delivery Method Room Air 09/14/24 11:32 Coding
--- OUTSIDE RECORDS SUMMARY | 2024-09-14 11:57 | XMS_ITS ---
Author Organization [facility] [address] [place] Address [address] [place] [address] Care Team Providers Care Candy Butcher Name Role Phone Robel LENNON, [facility] Primary [facility] Provider Silverio Mckeon [phone] REASON FOR VISIT r/s Encounters Encounter Location Date Provider Diagnosis [facility] [address] [place] [address] 04/24/2024 Silverio Zambrano Plan Of Treatment Next Appt Details Provider Name:Silverio Zambrano , 07/27/2025 01:00:00 PM, [address] [place], [address], Progress Notes * Ioana ADEN LDOB:1955 (68 yo F)Acc No.[id number]:04/24/2024 Patient:?Ioana ADEN :1955???Age:68 Y???Sex:Female Address:[address] [place], [address] * true * Date:? Generated for Noei gregorio/Bibiana/eTransmitting on:?09/14/2024 11:57 AM EDT
--- OUTSIDE RECORDS SUMMARY | 2024-09-14 11:57 | XMS_ITS | Patient Health Record ---
[facility] Address [address] [facility] [place] [address] Care Team Providers Care Child Welfare Consultant Name Role Phone Robel LENNON, [facility] Primary [facility] Provider Silverio Mckeon Unavailable [phone] Allergies Allergen (clinical drug ingredient) Drug/Non Drug [...] Problem Acquired hammer toe of right foot (346348302888199 5) Other hammer toe(s) (acquired), right foot (M20.41) Active confirmed Problem Acquired hammer toe of left foot (193562795201797 3) Other hammer toe(s) (acquired), left foot (M20.42) Active confirmed Problem Type 2 diabetes mellitus without complication (013595731) Type 2 diabetes mellitus without complication (E11.9) Active confirmed Vital Signs Blood pressure diastolic 80 mm Hg 07/25/2024 Height 5 ft 0 in in 07/25/2024 Blood pressure systolic 130 mm Hg 07/25/2024 Weight 177 lbs 07/25/2024 BMI 34.56 kg/m2 07/25/2024 Procedures Procedure Date Ordered Date Performed Result Body Sit e 18054-CRDPJVO NAIL, 6 OR MORE 07/25/2024 N/A Encounters Encounter Location Date Provider Diagnosis [address] [address] 07/25/2024 Silverio Zambrano Type 2 diabetes mellitus without complication E11.9 ; Pain in right toe(s) M79.674 ; Tinea unguium B35.1 ; Pain in left toe(s) M79.675 ; Other hammer toe(s) (acquired), right foot M20.41 and Other hammer toe(s) (acquired), left foot M20.42 [facility] [address] 09/30/2023 Silverio Zambrano [address] [address] 04/24/2024 Silverio Zambrano Assessments Encounter Date Diagnosis [...] Treatment Pending Test Test Name Order Date [id number] NAIL, 6 OR MORE 08/04/2022 52417-CICBDSJ NAIL, 6 OR MORE 11/03/2022 62636-WVOELWU NAIL, 6 OR MORE 05/04/2023 98619-ZFEUZHE NAIL, 6 OR MORE 07/25/2024 56440-Cvuoszap Plate 11/03/2022 Next Appt Details Provider Name:Silverio Zambrano , 07/27/2025 01:00:00 PM, [address] [facility], [place], [address], Insurance Providers Payer Name Payer Address Payer Phone Subscriber Number Group Number Insured Name Patient Relationship to Insured Coverage Start Date Coverage End Date [facility] 65 Medicare Preferred [address] [place] [address] [id number] Ioana Kinsey Self - patient is the insured Medical (General) History Medical History History ICD Code Anxiety Arthritis Back,Hip,and Knee pain Broken bones neck type II diabetes Headaches/Migraines Measles Mumps Joint implants/screws neck Surgical History Surgery Date(Month/Year) tubal ligation, b/l 1976 Tooth extraction fusion of cervical spine 2002
--- OUTSIDE RECORDS SUMMARY | 2024-09-14 11:57 | XMS_ITS ---
Author Organization [facility] jeff [place] Address [address] [place] [address] Care Team Providers Care Mining And Quarrying Machinery Repairer Name Role Phone Robel LENNON, Carlos Primary Care Provider Silverio Mckeon Unavailable [phone] Encounters Encounter Location Date Provider Diagnosis [address] [address] 05/02/2024 Silverio Zambrano Plan Of Treatment Next Appt Details Provider Name:Silverio Zambrano , 07/27/2025 01:00:00 PM, [address] [place], [address], Progress Notes * Ioana ADEN LDOB:1955 (69 yo F)Acc No.[id number]:05/02/2024 Progress Note Patient:?Ioana ADEN Provider:?Silverio Zambrano DPM :1955???Age:68 Y???Sex:Female D ate:05/02/2024 [address] [id number] Pcp:Carlos Huston MD Subjective: * Chief Complaints: [...] Zambrano DPM Date:?2024 Generated for Tori perkins/Bibiana/Delroy on:?09/14/2024 11:57 AM EDT
--- OUTSIDE RECORDS SUMMARY | 2024-09-14 11:58 | XMS_ITS ---
Author Organization [facility] jeff [place] Address [address] [facility] [place] [address] Care Team Providers Care Electricity Trading Analyst Name Role Phone Robel LENNON, [facility] Primary [facility] Provider Silverio Mckeon Unavailable [phone] Allergies Allergen (clinical drug ingredient) Drug/Non Drug [...] Ordered Date Performed Result Body Sit e 20243-RCTMMOZ NAIL, 6 OR MORE 07/25/2024 N/A Encounters Encounter Location Date Provider Diagnosis [facility] [place] [address] [place] [address] 07/25/2024 Silverio Zambrano Type 2 diabetes mellitus [...] INSTRUCTIONS.pdf) Pending Test Test Name Order Date [id number] NAIL, 6 OR MORE 07/25/2024 Next Appt Details Follow Up: 1 Year, Reason: Provider Name:Silverio Zambrano , 07/27/2025 01:00:00 PM, [address] [place], [address], Procedure Notes * Category Sub-Category Detail Notes [...] use of a nail nipper and/or dremel-type microgrinder operator, to a more viable healthy nail plate [...] to maintain effectiveness in symptomatic relief - 24055 Progress Notes * Ioana ADEN LDOB:1955 (69 yo F)Acc No.[id number]:07/25/2024 Progress Note Patient:?Ioana ADEN L Provider:?Silverio Zambrano DPM :1955???Age:69 Y???Sex:Female D ate:07/25/2024 Address:[address] [place] [address] [id number] Pcp:Carlos Huston MD Subjective: * Chief Complaints: [...] art gallery. ?Marital status: . 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 * Medications:?TakingglipiZIDE Tylenol , Notes to Pharmacist: [...] use of a nail nipper and/or dremel-type microgrinder operator, to a more viable healthy nail plate [...] to maintain effectiveness in symptomatic relief - 77994.? * Procedure Codes:?17806 DEBRI DE NAIL, 6 OR MORE * [...] Zambrano DPM Date:?2024 Generated for Tori perkins/Bibiana/Nitishitting on:?09/14/2024 11:57 AM EDT History and Physical Notes * [...]
== END 2024-09-14 12:57 | disposition home or self-care (01) ==
PROVIDERS: PCP Internal Medicine; Visit Provider Nurse Practitioner Family
DX: R73.9 Hyperglycemia, unspecified (principal); Z13.9 Encounter for screening, unspecified

== ENCOUNTER → 2024-09-14 11:19 | Outpatient (BNVA) | payer MEDICARE, SELFPAY | PROVIDERS: PCP Internal Medicine; Visit Provider Nurse Practitioner Family | DX: R73.9 Hyperglycemia, unspecified (principal) | CPT/HCPCS: 82948; 99212 ==

== ENCOUNTER 2024-09-26 09:35 | Outpatient (AMB) | payer MEDICARE, SELFPAY ==
[2024-09-26 09:37] VITALS: BP 148/90; PULSE 80; TEMP 36.4; O2SAT 96; BMI 34.7
--- NOTE | 2024-09-26 09:37 | A.OFFPC_ITS ---
Vital Signs 09/26/24 09:37 Height 5 ft 1 in Weight 183 lb 8 oz BMI 34.7 BP 148/90 H Blood Pressure Location Rt brachial Position Sitting Pulse 80 Pulse Source Pulse Oximeter Temp 97.5 F Temp Source Oral Pulse Oximetry (%) 96 Oxygen Delivery Method Room Air Intake Visit Reasons: f/up from 09/14 pain left side of breast Allergies acetaminophen [Percocet] Adverse Reaction (Unknown, Verified 09/26/24 09:38) N/V oxycodone [Percocet] Adverse Reaction (Unknown, Verified 09/26/24 09:38) N/V Medication List - Last Reconciled 09/26/24 by Carlos Huston MD blood sugar diagnostic ([employer]uch Ultra Test strips) Use to check fasting blood sugar daily blood-glucose meter ([employer]uch Ultra2 Meter) Use to check fasting blood sugar daily glipizide 5 mg PO DAILY lancets ([employer] LabTouch Delica Plus Lancet) Test blood sugar once a day Tobacco use date assessed: 09/26/24 Fall risk assessment: No Falls in past year Last assessed Fall Risk: 09/26/24 Dental Screening Dental Screen Date: 09/26/24 Did you have a dental visit in the last 12 months?: Yes Did you have a dental problem in the last 6 months where you did not have access to dental care?: No Was dental information given to patient?: Patient has dentist HPI f/up from 09/14 pain left side of breast HPI Details History - The patient is a 69-year-old female pr esenting with a follow-up for Type 2 Diabetes Mellitus, Essential Hypertension, and Hyperlipidemia. And obesity - Type 2 Diabetes Mellitus: [facility]'s [facility] Hemoglobin A1C was 9.4 as of September 06. She reports adhering to a treatment regimen including glipizide and metformin yet describes challenging experiences with glucose control interactions at urgent care appointments. Blood sugar readings are still running high fasting patient is currently taking glipizide 5 mg in the morning and 2.5 at night We will be increasing the dose to 5 mg b.i.d. Specific dietary adjustments have been attempted including shifting away from gluten-free products due to high carbohydrate content. - Essential Hypertension: Blood pressure readings have varied significantly, with a noted elevated reading of 148/90 at the clinic visit. However, at home, the patient reports lower readings such as 121/76. - Hyperlipidemia: LDL levels were report ed at 163 mg/dL. The patient indicates a hesitancy to take cholesterol medications, particularly statins. Dietary changes have been attempted. - BMI is elevated, patient is trying to lose weight Medical History: - Type 2 Diabetes Mellitus - Essential Hypertension - Hyperlipidemia Medications: - Glipizide 5 mg daily for diabetes elissa mcdowellent - Metformin 500 mg daily for diabetes sesar boo Social History: - Patient reports increased physical act ivity through walking. - Identifies gluten sensitivity, causing gastrointestinal distress; efforts have been made to avoid gluten despite previous dietary habits centered on gluten- free products. Diagnostic Results: - Labs: Hemoglobin A1c of 9.4%, LDL chol esterol level of 163 mg/dL. Problem List - Type 2 Diabetes Mellitus with elevated Hemoglobin A1C - Essential Hypertension - Hyperlipidemia - obesity Patient Instructions - Continue monitoring blood sugar and bl ood pressure at home. - Increase glipizide to 5 mg twice a day as discussed. - Focus on eating fresh foods and avoidi ng high sodium and high carbohydrate gluten-free substitutes. - Monitor blood pressure using a AllergEase e home device, and bring the device to the next appointment for verification. - Schedule next visit for early and obtain necessary laboratory assessments before the appointment. Review of Systems - General: No fever no chills - Neurological: No headaches no dizziness - Ear nose throat: No sore throat no hearing difficulty no ear pain - Cardiovascular: No syncope, no chest pain, no palpitations - Gastrointestinal: No nausea vomiting or diarrhea - Endocrine: No polyuria polydipsia no heat intolerance - Genitourinary: No dysuria , no blood in urine Physical Exam - General: No acute distress - HEENT: No acute findings - Neck: Supple - Respiratory system: Able to talk in f ull sentences, no audible wheeze - Cardiovascular: S1-S2 regular in rate and rhythm - Gastrointestinal: No pain - Extremities: No new findings - CHILD CARE EDUCATION COORDINATOR: Alert awake oriented x3 motor se nsory intact - Skin: Normal turgor PFSH Medical History 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 Surgical History History of tooth extraction Hx of fusion of cervical spine History of bilateral tubal ligation Family History Father History of heart attack 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 Mother 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 Stroke Brother TIA (transient ischemic attack) Maternal Grandfather No problems noted. Maternal Grandmother No problems noted. Paternal Grandfather No problems noted. Paternal Grandmother No problems noted. Brother No problems noted. Brother No problems noted. Brother No problems noted. Son No problems noted. Daughter No problems noted. Sister Melanoma Sister No problems noted. Sister No problems noted. Sister No problems noted. Sister No problems noted. Other Mental health disorder Social History Housing: House Alcohol intake: current Alcohol intake frequency: a few times a week Alcohol type: beer and wine Patient Tobacco Use Status: Former Tobacco user e-Cigarette/Vaping Use: Never Used Second Hand Smoke Exposure: No Substance Use Type: Marijuana service: No Current occupational status: retired Cognitive needs: No Hearing needs: No Vision needs: Yes (GLASSES) Questionnaire PHQ-9 Over the last 2 weeks, how often have you been bothered by any of the following problems? 1. Little interest or pleasure in doing things: not at all 2. Feeling down, depressed, or hopeless: not at all 3. Trouble falling or staying asleep, or sleeping too much: several days 4. Feeling tired or having little energy: not at all 5. Poor appetite or overeating: not at all 6. Feeling bad about yourself - or that you are a failure or have let yourself or your family down: not at all 7. Trouble concentrating on things, such as reading the newspaper or watching television: not at all 8. Moving or speaking so slowly that other people could have noticed. Or the opposite - being so fidgety or restless that you have been moving around a lot more than usual: not at all 9. Thoughts that you would be better off or of hurting yourself in some way: not at all Total score: 1 Depression Screening Interpretation: Negative Depression Screening Done: Yes Source: Developed by Drs. Austin Hastings, Renetta Parsons, Brian Casey and colleagues, with an educational wayne from [employer]. Thrive Questionnaire Date Thrive assessed: 09/26/24 I am a: Patient What is your living situation today?: I have a steady place to live Within the past 12 months, did the food you bought not last and you didn't have the money to get more?: Never true Within the past 12 months, did you worry whether your food would run out before you got money to buy more?: Never true Do you have trouble paying for medicines?: No Do you have trouble getting transportation to medical appointments?: No Do you have trouble paying your heating and electricity bill?: No Do you have trouble taking care of your child, family member or friend?: No Do you have trouble with day-to-day activities such as bathing, preparing meals, shopping, managing finances, etc.?: No Are you currently unemployed and looking for a job?: No Are you interested in more education?: No Please select the resources that you would like help with: None Currently or been in a relationship where the following occur: No concerns reported THRIVE Score: 0 AUDIT C Alcohol Use Questionnaire (AUDIT-C) 1. How often do you have a drink containing alcohol?: 2-4 times a month 2. How many drinks containing alcohol do you have on a typical day when you are drinking?: 1 or 2 3. How often do you have six or more drinks on one occasion?: Never Total Score: 2 Score Reviewed/Action Taken: Yes ANJELICA-7 AMB Questionnaire ANJELICA-7 Date ANJELIAC - 7 assessed: 09/26/24 Feeling nervous, anxious, or on edge: 0 = Not at all Not being able to stop or control worryin = Not at all Worrying too much about different things: 0 = Not at all Trouble relaxin = Not at all Being so restless that it is hard to sit still: 0 = Not at all Becoming easily annoyed or irritable: 0 = Not at all Feeling afraid as if something awful might happen: 0 = Not at all Total ANJELICA-7 score (0-4 normal; 5-9 mild; 10-14 moderate; 15-21 severe): 0 Source: Developed by Drs. Austin Hastings, Renetta Parsons, Brian Casey and colleagues, with an educational wayne from [employer]. Physical exam (Primary Care) Vital Signs: Last Vital Signs Temp 97.5 F 09/26/24 09:37 Pulse 80 09/26/24 09:37 BP 148/90 H 09/26/24 09:37 Pulse Ox 96 09/26/24 09:37 Oxygen Delivery Method Room Air 09/26/24 09:37 BMI result Body Mass Index 34.7 Tobacco/Smoking Status: Tobacco use Status Tobacco use date assessed 09/26/24 09/26/24 09:44 Patient Tobacco Use Status Former Tobacco user 09/26/24 09:44 e-Cigarette/Vaping Use Never Used 09/26/24 09:44 PHQ-9: PHQ-9 Score PHQ-9: Total score 1 09/26/24 09:57 Depression Screening Interpretation: Negative Thrive Assessment: Date of Thrive Assessment Date Thrive assessed 09/26/24 09/26/24 09:44 Currently or been in a relationship where the following occur: No concerns reported Coding Level of Care Code Est Pt Level 4 (40954) Complex EM visit Add On G2211 Diagnoses Type 2 diabetes mellitus without complication, without long-term current use of insulin E11.9 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 type: type 2 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 insulin use: without middle or intermediate school principal use 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 complication status: without complication Class 1 obesity due to excess calories with serious comorbidity and body mass index (BMI) of 33.0 to 33.9 in adult E66.09; Z68.33 Obesity classification: adult class 1 (BMI 30 - 34.9) Serious obesity comorbidity presence: with serious comorbidity Body mass index: BMI 33.0-33.9 Lipid disorder E78.9 Elevated blood pressure reading R03.0 Assessment & Plan Assessment & Plan (1) 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: Code(s): E11.9 - Type 2 diabetes mellitus without complications Category: Medical Qualifiers: 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 type: type 2 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 nursing home insulin use: without nursing home use 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 complication status: without complication Qualified Code(s): E11.9 - Type 2 diabetes mellitus without complications (2) Obesity due to excess calories: Code(s): E66.09 - Other obesity due to excess calories Category: Medical Qualifiers: Obesity classification: adult class 1 (BMI 30 - 34.9) Serious obesity comorbidity presence: with serious comorbidity Body mass index: BMI 33.0-33.9 Qualified Code(s): E66.09 - Other obesity due to excess calories; Z68.33 - Body mass index [BMI] 33.0-33.9, adult (3) Lipid disorder: Code(s): E78.9 - Disorder of lipoprotein metabolism, unspecified Category: Medical (4) Elevated blood pressure reading: Code(s): R03.0 - Elevated blood-pressure reading, without diagnosis of hypertension Category: Medical Plan History - The patient is a 69-year-old female presenting with a follow-up for Type 2 Diabetes Mellitus, Essential Hypertension, and Hyperlipidemia. And obesity - Type 2 Diabetes Mellitus: Patient's last Hemoglobin A1C was 9.4 as of September 06. She reports adhering to a treatment regimen including glipizide and metformin yet describes challenging experiences with glucose control interactions at urgent care appointments. Blood sugar readings are still running high fasting patient is currently taking glipizide 5 mg in the morning and 2.5 at night We will be increasing the dose to 5 mg b.i.d. Specific dietary adjustments have been attempted including shifting away from gluten-free products due to high carbohydrate content. - Essential Hypertension: Blood pressure readings have varied significantly, with a noted elevated reading of 148/90 at the clinic visit. However, at home, the patient reports lower readings such as 121/76. - Hyperlipidemia: LDL levels were reported at 163 mg/dL. The patient indicates a hesitancy to take cholesterol medications, particularly statins. Dietary changes have been attempted. - BMI is elevated, patient is trying to lose weight Medical History: - Type 2 Diabetes Mellitus - Essential Hypertension - Hyperlipidemia Medications: - Glipizide 5 mg daily for diabetes management - Metformin 500 mg daily for diabetes management Social History: - Patient reports increased physical activity through walking. - Identifies gluten sensitivity, causing gastrointestinal distress; efforts have been made to avoid gluten despite previous dietary habits centered on gluten- free products. Diagnostic Results: - Labs: Hemoglobin A1c of 9.4%, LDL cholesterol level of 163 mg/dL. Problem List - Type 2 Diabetes Mellitus with elevated Hemoglobin A1C - Essential Hypertension - Hyperlipidemia - obesity Patient Instructions - Continue monitoring blood sugar and blood pressure at home. - Increase glipizide to 5 mg twice a day as discussed. - Focus on eating fresh foods and avoiding high sodium and high carbohydrate gluten-free substitutes. - Monitor blood pressure using a reliable home device, and bring the device to the next appointment for verification. - Schedule next visit for early December and obtain necessary laboratory assessments before the appointment. Medications: Changed From glipizide 5 mg PO DAILY 90 tabs 0RF To glipizide 5 mg PO BID 180 tabs 0RF
--- OUTSIDE RECORDS SUMMARY | 2024-09-26 10:43 | XMS_ITS ---
Author Organization [facility] Address [address] [place] [address] Care Team Providers Care Residential Door Unit Installer Name Role Phone Robel LENNON, Carlos Primary Care Provider Silverio Mckeon Unavailable [phone] Encounters Encounter Location Date Provider Diagnosis [address] [id number] 05/02/2024 Silverio Zambrano Plan Of Treatment Next Appt Details Provider Name:Silverio Zambrano , 07/27/2025 01:00:00 PM, [address] [place], [address], Progress Notes * Ioana ADEN LDOB:1955 (69 yo F)Acc No.[id number]:05/02/2024 Progress Note Patient:?Ioana ADEN Provider:?Silverio Zambrano DPM :1955???Age:68 Y???Sex:Female D ate:05/02/2024 [address] [id number] Pcp:Carlos Huston MD Subjective: * Chief Complaints: * ??? * Medical History:? Objective: * Vitals:? Assessment: Plan: * Treatment: * Images: * The named appointment provid er may or may not be the originator of this progress note, and it is not deemed complete until electronically signed by the appointment provider. Sign off status: Pending * Provider:?Silverio Zambrano DPM Date:?2024 Generated for Tori perkins/Bibiana/Delroy on:?09/26/2024 10:43 AM EDT
== END 2024-09-26 09:57 | disposition home or self-care (01) ==
LOC: HO.HMCC 09:35
PROVIDERS: PCP Internal Medicine; Visit Provider Internal Medicine
DX: E11.9 Type 2 diabetes mellitus without complications (principal); E66.09 Other obesity due to excess calories; Z68.33 Body mass index [BMI] 33.0-33.9, adult; E78.9 Disorder of lipoprotein metabolism, unspecified; R03.0 Elevated blood-pressure reading, without diagnosis of hypertension

== ENCOUNTER → 2024-09-26 09:35 | Outpatient (BNVA) | payer MEDICARE, SELFPAY | PROVIDERS: PCP Internal Medicine; Visit Provider Internal Medicine | DX: N64.4 Mastodynia (principal); E11.9 Type 2 diabetes mellitus without complications; I10 Essential (primary) hypertension; E78.5 Hyperlipidemia, unspecified; E66.09 Other obesity due to excess calories; E78.9 Disorder of lipoprotein metabolism, unspecified; R03.0 Elevated blood-pressure reading, without diagnosis of hypertension; Z68.34 Body mass index [BMI] 34.0-34.9, adult; Z79.899 Other long term (current) drug therapy | CPT/HCPCS: 96127; 99212 ==

== ENCOUNTER 2024-11-08 13:01 | Outpatient (AMB) | payer MEDICARE, SELFPAY ==
--- OUTSIDE RECORDS SUMMARY | 2024-05-02 05:00 | XMS_ITS ---
Author Organization [facility] Address [address] [place] [address] Care Team Providers Care Otolaryngology Teacher Name Role Phone Robel LENNON, Carlos Primary Care Provider UnavailSilverio Fuller Unavailable [phone] Encounters Encounter Location Date Provider Diagnosis [address] [address] 05/02/2024 Silverio Zambrano Plan Of Treatment Next Appt Details Provider Name:Silverio Zambrano , 07/27/2025 01:00:00 PM, [address] [place] [address], [phone], Progress Notes * Ioana ADEN LDOB:1955 (69 yo F)Acc No.[id number]:05/02/2024 Progress Note Patient: Ioana PURVIS Provider: Kate Zambrano DPM :1955 A ge:68 Y S ex:Female Date:05/02/2024 Address: [id number] Pcp:Carlos Huston MD Subjective: * Chief Complaints: [...] 05/02/2024 Generated for Tori perkins/Bibiana/Delroy on: 0 11/08/2024 01:53 PM EDT
[2024-11-08 13:16] VITALS: BP 130/80; PULSE 111; O2SAT 98; BMI 34.0
--- NOTE | 2024-11-08 13:16 | MHC.PC.OV ---
Vital Signs 11/08/24 13:16 Height 5 ft 1 in Weight 180 lb BMI 34.0 BP 130/80 Blood Pressure Location Rt brachial Position Sitting Pulse 111 H Pulse Source Pulse Oximeter Pulse Oximetry (%) 98 Intake Visit Reasons: panic attacks/med management Allergies acetaminophen (Percocet) Adverse Reaction (Unknown, Verified 09/26/24 09:38) N/V oxycodone (Percocet) Adverse Reaction (Unknown, Verified 09/26/24 09:38) N/V Medication List - Last Reconciled 11/08/24 by Carlos Huston MD blood sugar diagnostic ([employer] Ultra Test strips) Use to check fasting blood sugar daily blood-glucose meter ([employer]Pilotuch Ultra2 Meter) Use to check fasting blood sugar daily clonazepam (Klonopin) 0.5 mg PO DAILY PRN 10 days glipizide 5 mg PO BID lancets (Trippy BandzTouch Delica Plus Lancet) Test blood sugar once a day magnesium gluconate 500 mg PO ONCE potassium gluconate 595 mg PO DAILY Tobacco use date assessed: 09/26/24 Fall risk assessment: No Falls in past year Last assessed Fall Risk: 11/08/24 Dental Screening Dental Screen Date: 09/26/24 HPI panic attacks/med management HPI Details - The patient is a 69-year-old female presenting with anxiety and panic attacks. - [place] during which she lost her breath and was unable to breathe, requiring intervention with a bag of ice placed under her neck. - Has a history of panic attacks, but states this was her first major attack in years. - Noted a recent heightened level of anxiety over the past few months, especially after losing four family members (two siblings and two gqpjojrw-wa-suh) in the last three years. - Experiences episodes frequently, reported as two to three times in the last two months. - Expresses distress due to worsening anxiety, significantly affecting her emotional state, causing her to cry easily. - Reports sleep disturbances, previously sleeping only three hours and engaging in activities such as reading or watching TV to manage restlessness, recently improved to eight hours of sleep post-anxiety medication trial. - Blood sugar levels have been erratic, with reported fluctuations potentially associated with anxiety, ranging from 165 mg/dL in the morning to lower levels of 119 mg/dL to 135 mg/dL later in the day. Medical History: - Anxiety Disorder - Panic Disorder - Type 2 Diabetes Mellitus - Insomnia - Tachycardia Medications: - glipizide: Taken possibly for glycemic control in diabetes. - Metformin: Taken as needed, not regularly due to patient-reported discomfort with the prescribing provider. - Clonazepam: Previous use for anxiety, requesting renewal. - Magnesium supplement: Taken for muscle cramps as advised by a legal stenographer. - Dark green vegetables and bananas: Consumed to manage muscle cramps. - Lexapro 5 mg to start. Social History: - Engages in daily morning walks and exercises in the afternoon with either a treadmill or leg exercises from a chair. - Manages diet by ensuring adequate intake of dark green vegetables and consumes bananas to alleviate muscle cramps. - Experienced significant stress due to personal losses, affecting emotional well-being and contributing to anxiety. Family History: - Reports loss of four family members in the last three years (two siblings and two [id number]-cg-teq). Diagnostic Results: - Labs: Blood glucose levels reported between 165 mg/dL (morning) to 119-135 mg/dL (later in the day). - No specific diagnostic tests were reported during the conversation. Problem List - Anxiety Disorder - Panic Disorder - Type 2 Diabetes Mellitus - Insomnia - Tachycardia/has seen Cardiology/workup negative Patient Instructions - Take prescribed anxiety medication as directed. Lexapro 5 mg - clonazepam 30 tablets sent as well to be taken p.r.n. - Report any side effects or increase in anxiety symptoms. - Continue daily exercise routine and ensure a balanced diet. - Keep track of blood sugar levels and report any significant changes. - Aim to maintain a regular sleep pattern. - Stay hydrated and manage stress levels with relaxation techniques. - Follow up with appointment plans and medication refills as necessary. Review of Systems - General: No fever no chills - Neurological: No headaches no dizziness - Ear nose throat: No sore throat no hearing difficulty no ear pain - Cardiovascular: No syncope, no chest pain, no palpitations - Gastrointestinal: No nausea vomiting or diarrhea - Endocrine: No polyuria polydipsia no heat intolerance - Genitourinary: No dysuria , no blood in urine Physical Exam General: No acute distress HEENT: No acute findings Neck: Supple Respiratory system: Able to talk in full sentences, no audible wheeze Cardiovascular: S1-S2 regular in rate and rhythm, pulse is 111 Gastrointestinal: No pain Extremities: No new findings 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 Maternal Grandmother No problems noted. Paternal Grandfather No problems noted. Paternal Grandmother No problems noted. Brother No problems noted. Brother No problems noted. Brother No problems noted. Son No problems noted. Daughter No problems noted. Sister Melanoma Sister No problems noted. Sister No problems noted. Sister No problems noted. Sister No problems noted. Other Mental health disorder Social History Housing: House Alcohol intake: current Alcohol intake frequency: a few times a week Alcohol type: beer and wine Patient Tobacco Use Status: Former Tobacco user e-Cigarette/Vaping Use: Never Used Second Hand Smoke Exposure: No Substance Use Type: Marijuana service: No Current occupational status: retired Cognitive needs: No Hearing needs: No Vision needs: Yes (GLASSES) Questionnaire Thrive Questionnaire Date Thrive assessed: 08/30/24 I am a: Patient What is your living situation today?: I have a steady place to live Within the past 12 months, did the food you bought not last and you didn't have the money to get more?: Never true Within the past 12 months, did you worry whether your food would run out before you got money to buy more?: Never true Do you have trouble paying for medicines?: No Do you have trouble getting transportation to medical appointments?: No Do you have trouble paying your heating and electricity bill?: No Do you have trouble taking care of your child, family member or friend?: No Do you have trouble with day-to-day activities such as bathing, preparing meals, shopping, managing finances, etc.?: No Are you currently unemployed and looking for a job?: No Are you interested in more education?: No Please select the resources that you would like help with: None Currently or been in a relationship where the following occur: No concerns reported THRIVE Score: 0 ANJELICA-7 AMB Questionnaire ANJELICA-7 Date ANJELICA - 7 assessed: 09/26/24 Source: Developed by Drs. Austin Hastings, Renetta Parsons, Brian Casey and colleagues, with an educational wayne from [employer]. Physical exam (Primary Care) Vital Signs: Last Vital Signs Pulse 111 H 11/08/24 13:16 BP 130/80 11/08/24 13:16 Pulse Ox 98 11/08/24 13:16 BMI result Body Mass Index 34.0 Tobacco/Smoking Status: Tobacco use Status Tobacco use date assessed 09/26/24 11/08/24 13:19 Patient Tobacco Use Status Former Tobacco user 11/08/24 13:19 e-Cigarette/Vaping Use Never Used 11/08/24 13:19 Thrive Assessment: Date of Thrive Assessment Date Thrive assessed 08/30/24 11/08/24 13:19 Currently or been in a relationship where the following occur: No concerns reported Coding Level of Care Code Est Pt Level 4 (86446) Diagnoses Panic attacks F41.0 Anxiety, generalized F41.1 Type 2 diabetes mellitus without complication, without long-term current use of insulin E11.9 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 type: type 2 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: without intermediate school teacher use 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 complication status: without complication Class 1 obesity due to excess calories with serious comorbidity and body mass index (BMI) of 33.0 to 33.9 in adult E66.09; Z68.33 Obesity classification: adult class 1 (BMI 30 - 34.9) Serious obesity comorbidity presence: with serious comorbidity Body mass index: BMI 33.0-33.9 Lipid disorder E78.9 Tachycardia R00.0 Assessment & Plan Assessment & Plan (1) Panic attacks: Code(s): F41.0 - Panic disorder [episodic paroxysmal anxiety] Category: Medical (2) Anxiety, generalized: Code(s): F41.1 - Generalized anxiety disorder Category: Medical (3) 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: Code(s): E11.9 - Type 2 diabetes mellitus without complications Category: Medical Qualifiers: 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 type: type 2 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: without detention use 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 complication status: without complication Qualified Code(s): E11.9 - Type 2 diabetes mellitus without complications (4) Obesity due to excess calories: Code(s): E66.09 - Other obesity due to excess calories Category: Medical Qualifiers: Obesity classification: adult class 1 (BMI 30 - 34.9) Serious obesity comorbidity presence: with serious comorbidity Body mass index: BMI 33.0-33.9 Qualified Code(s): E66.09 - Other obesity due to excess calories; Z68.33 - Body mass index [BMI] 33.0-33.9, adult (5) Lipid disorder: Code(s): E78.9 - Disorder of lipoprotein metabolism, unspecified Category: Medical (6) Tachycardia: Code(s): R00.0 - Tachycardia, unspecified Category: Medical Plan - The patient is a 69-year-old female presenting with anxiety and panic attacks. - Reports [place], during which she lost her breath and was unable to breathe, requiring intervention with a bag of ice placed under her neck. - Has a history of panic attacks, but states this was her first major attack in years. - Noted a recent heightened level of anxiety over the past few months, especially after losing four family members (two siblings and two xrdnalgz-hb-tbh) in the last three years. - Experiences episodes frequently, reported as two to three times in the last two months. - Expresses distress due to worsening anxiety, significantly affecting her emotional state, causing her to cry easily. - Reports sleep disturbances, previously sleeping only three hours and engaging in activities such as reading or watching TV to manage restlessness, recently improved to eight hours of sleep post-anxiety medication trial. - Blood sugar levels have been erratic, with reported fluctuations potentially associated with anxiety, ranging from 165 mg/dL in the morning to lower levels of 119 mg/dL to 135 mg/dL later in the day. Medical History: - Anxiety Disorder - Panic Disorder - Type 2 Diabetes Mellitus - Insomnia - Tachycardia Medications: - glipizide: Taken possibly for glycemic control in diabetes. - Metformin: Taken as needed, not regularly due to patient-reported discomfort with the prescribing provider. - Clonazepam: Previous use for anxiety, requesting renewal. - Magnesium supplement: Taken for muscle cramps as advised by a legal stenographer. - Dark green vegetables and bananas: Consumed to manage muscle cramps. - Lexapro 5 mg to start. Social History: - Engages in daily morning walks and exercises in the afternoon with either a treadmill or leg exercises from a chair. - Manages diet by ensuring adequate intake of dark green vegetables and consumes bananas to alleviate muscle cramps. - Experienced significant stress due to personal losses, affecting emotional well-being and contributing to anxiety. Family History: - Reports loss of four family members in the last three years (two siblings and two fdqekrdv-yf-tkh). Diagnostic Results: - Labs: Blood glucose levels reported between 165 mg/dL (morning) to 119-135 mg/dL (later in the day). - No specific diagnostic tests were reported during the conversation. Problem List - Anxiety Disorder - Panic Disorder - Type 2 Diabetes Mellitus - Insomnia - Tachycardia/has seen Cardiology/workup negative Patient Instructions - Take prescribed anxiety medication as directed. Lexapro 5 mg - clonazepam 30 tablets sent as well to be taken p.r.n. - Report any side effects or increase in anxiety symptoms. - Continue daily exercise routine and ensure a balanced diet. - Keep track of blood sugar levels and report any significant changes. - Aim to maintain a regular sleep pattern. - Stay hydrated and manage stress levels with relaxation techniques. - Follow up with appointment plans and medication refills as necessary. Medications: New escitalopram oxalate (Lexapro) 5 mg PO DAILY 30 tabs 2RF Changed From clonazepam (Klonopin) 0.5 mg PO DAILY 10 days PRN 10 tabs 0RF anxiety To clonazepam (Klonopin) 0.5 mg PO DAILY PRN 30 tabs 0RF anxiety 30 days
--- OUTSIDE RECORDS SUMMARY | 2024-11-08 13:54 | XMS_ITS | Patient Health Record ---
Author Organization [facility] Address [address] [place] [address] Care Team Providers Care Information Clerk [employer]obile [employer] Name Role Phone Robel LENNON, Asma Primary Care Provider Austin Hu [phone] Reason For Referral No Information Medications Medication SIG (Take, Route, Frequency, Duration) Notes Start Date End Date Status Turmeric Active Black Nice Concentrate Active Social History Tobacco Use: Social History Observation Description Date Details (start date - stop date) Former Smoker NA - NA Tobacco Use/Smoking Question Answer Notes Patient is a former smoker How long has it been since you last smoked? 1-5 years Alcohol Screen Question Answer Notes Did you have a drink contain ing alcohol in the past year? Yes How often did you have a dri nk containing alcohol in the past year? Monthly or less (1 point) How many drinks did you have on a typical day when you were drinking in the past year? 1 or 2 drinks (0 point) How often did you have 6 or more drinks on one occasion in the past year? Never (0 point) Points 1 Interpretation Negative Section Notes: Nonsmoker; no sig alcohol Problems Problem Type SNOMED Code ICD Code Onset Dates Problem Status W/U Status Risk Notes Problem [id number] Encounter for screening for malignant neoplasm of colon (Z12.11) Active confirmed Problem [id number] Preprocedural examination (Z01.818) Active confirmed Plan Of Treatment Future Test Test Name Order Date COLONOSCOPY 05/06/2017 Insurance Providers Payer Name Payer Address Payer Phone Subscriber Number Group Number Insured Name Patient Relationship to Insured Coverage Start Date Coverage End Date [facility] [address] [place] [address] [id number] [facility] [place] Self - patient is the insured Medical (General) History Medical History History ICD Code Denies [place],DM,CVA,Lung disease,renal dise ase Arthritis Reports a negative screening coilonoscop y at age 48 at [facility] Surgical History Surgery Date(Month/Year) BTL 1976 C-spine fusion 2002
== END 2024-11-08 13:30 | disposition home or self-care (01) ==
LOC: HO.HMCC 13:02
PROVIDERS: PCP Internal Medicine; Visit Provider Internal Medicine
DX: F41.0 Panic disorder [episodic paroxysmal anxiety] (principal); F41.1 Generalized anxiety disorder; E11.9 Type 2 diabetes mellitus without complications; E66.09 Other obesity due to excess calories; Z68.33 Body mass index [BMI] 33.0-33.9, adult; E78.9 Disorder of lipoprotein metabolism, unspecified; R00.0 Tachycardia, unspecified

== ENCOUNTER → 2024-11-08 13:01 | Outpatient (BNVA) | payer MEDICARE, SELFPAY | PROVIDERS: PCP Internal Medicine; Visit Provider Internal Medicine | DX: F41.1 Generalized anxiety disorder (principal); E11.9 Type 2 diabetes mellitus without complications; F41.0 Panic disorder [episodic paroxysmal anxiety]; E66.811 Obesity, class 1; E66.01 Morbid (severe) obesity due to excess calories; E78.9 Disorder of lipoprotein metabolism, unspecified; R00.0 Tachycardia, unspecified; Z68.33 Body mass index [BMI] 33.0-33.9, adult | CPT/HCPCS: 99212 ==

== ENCOUNTER 2024-12-19 06:25 | Outpatient (REF) | payer MEDICARE, SELFPAY ==
--- OUTSIDE RECORDS SUMMARY | 2023-11-02 05:00 | XMS_ITS ---
Author Organization [facility] Address [address] [place] [address] Care Team Providers Care Cardiac Rehab Nurse Name Role Phone Robel LENNON, Carlos Primary Care Provider UnavailSilverio Fuller Unavailable [phone] Encounters Encounter Location Date Provider Diagnosis [address] [address] 11/02/2023 Silverio Zambrano Plan Of Treatment Next Appt Details Provider Name:Silverio Zambrano , 07/27/2025 01:00:00 PM, [address] [place] [address], [phone], Progress Notes * Ioana ADEN LDOB:1955 (69 yo F)Acc No.[id number]:11/02/2023 Progress Note Patient: Ioana PURVIS Provider: Kate Zambrano DPM :1955 A ge:68 Y S ex:Female Date:11/02/2023 [address] [id number] Pcp:Carlos Hutson MD Subjective: * Chief Complaints: * * [...] 0 11/02/2023 Generated for Tori perkins/Bibiana/Delroy on: 0 12/19/2024 06:30 AM EDT
--- OUTSIDE RECORDS SUMMARY | 2024-05-02 05:00 | XMS_ITS ---
Author Organization [facility] Address [address] [place] [address] Care Team Providers Care Creative Director Name Role Phone Robel LENNON, Carlos Primary Care Provider UnavailSilverio Fuller Unavailable [phone] Encounters Encounter Location Date Provider Diagnosis [address] [address] 05/02/2024 Silverio Zambrano Plan Of Treatment Next Appt Details Provider Name:Silverio Zambrano , 07/27/2025 01:00:00 PM, [address] [place] [address], [phone], Progress Notes * Ioana ADEN LDOB:1955 (69 yo F)Acc No.[id number]:05/02/2024 Progress Note Patient: Ioana PURVIS Provider: Kate Zambrano DPM :1955 A ge:68 Y S ex:Female Date:05/02/2024 Address: [address] [place] Pcp:Carlos Huston MD Subjective: * Chief Complaints: [...] 05/02/2024 Generated for Tori perkins/Bibiana/Delroy on: 0 12/19/2024 06:29 AM EDT
--- OUTSIDE RECORDS SUMMARY | 2024-12-19 06:30 | XMS_ITS | Patient Health Record ---
Author Organization [facility] Address [address] [place] [address] Care Team Providers Care Hose Tester Name Role Phone Robel LENNON, [facility] Primary [facility] Provider Silverio Mckeon Unavailable [phone] Allergies Allergen (clinical drug ingredient) Drug/Non Drug [...] tablet with breakf ast Orally Once a day; Duration: 30 day(s) Not-Taking Immunizations Vaccine Route Administration [...] Problem Acquired hammer toe of right foot (412275724740 9105) Other hammer toe(s) (acquired), right foot (M20.41) Active confirmed Problem Acquired hammer toe of left foot (230778228624 9103) Other hammer toe(s) (acquired), left foot (M20.42) Active confirmed Problem Type 2 diabetes mellitus without complication (E11.9) Active confirmed Vital Signs Blood pressure diastolic 80 mm Hg 07/25/2024 Height 5 ft 0 in in 07/25/2024 Blood pressure systolic 130 mm Hg 07/25/2024 Weight 177 lbs 07/25/2024 BMI 34.56 kg/m2 07/25/2024 Procedures Procedure Date Ordered Date Performed Result Body Sit e [id number] NAIL, 6 OR MORE 07/25/2024 N/A Encounters Encounter Location Date Provider Diagnosis [facility] [address] [address] 07/25/2024 Silverio Zambrano Type 2 diabetes mellitus without complication E11.9 ; Pain in right toe(s) M79.674 ; Tinea unguium B35.1 ; Pain in left toe(s) M79.675 ; Other hammer toe(s) (acquired), right foot M20.41 and Other hammer toe(s) (acquired), left foot M20.42 [facility] [address] [address] 04/24/2024 Silverio Zambrano Assessments Encounter Date Diagnosis [...] Treatment Pending Test Test Name Order Date [id number] NAIL, 6 OR MORE 05/04/2023 [id number] NAIL, 6 OR MORE 07/25/2024 [id number] NAIL, 6 OR MORE 11/03/2022 [id number] NAIL, 6 OR MORE 08/04/2022 [id number] Plate 11/03/2022 Next Appt Details Provider Name:Silverio Zambrano , 07/27/2025 01:00:00 PM, [address] [place], [address], Insurance Providers Payer Name Payer Address Payer Phone Subscriber Number Group Number Insured Name Patient Relationship to Insured Coverage Start Date Coverage End Date [employer] 65 Medicare Preferred [address] [place] [address] [id number] Ioana Kinsey Self - patient is the insured Medical (General) History Medical History History ICD Code Anxiety Arthritis Back,Hip,and Knee pain Broken bones neck type II diabetes Headaches/Migraines Measles Mumps Joint implants/screws neck Surgical History Surgery Date(Month/Year) tubal ligation, b/l 1976 Tooth extraction fusion of cervical spine 2002
--- OUTSIDE RECORDS SUMMARY | 2024-12-19 06:30 | XMS_ITS | Patient Health Record ---
Author Organization [facility] Address [address] [place] [address] Care Team Providers Care Assembly Machine Tool Setter Name Role Phone Robel LENNON, [facility] Primary [facility] Provider Austin Hu [phone] Reason For Referral No Information Medications Medication [...] Problem Status W/U Status Risk Notes Problem [id number] Encounter for screening for malignant neoplasm of colon (Z12.11) Active confirmed Problem 378732102 Preprocedural examination (Z01.818) Active confirmed Plan Of Treatment Future Test Test Name Order Date COLONOSCOPY 05/06/2017 Insurance Providers Payer Name Payer Address Payer Phone Subscriber Number Group Number Insured Name Patient Relationship to Insured Coverage Start Date Coverage End Date [facility] [address] [place] [address] [id number] [facility] [place] Self - patient is the insured Medical (General) History Medical History History ICD Code Denies [place],DM,CVA,Lung disease,renal dise ase Arthritis Reports a negative screening coilonoscop y at age 48 at [facility] Surgical History Surgery Date(Month/Year) BTL 1976 C-spine fusion 2002
[2024-12-19 10:08] LABS: MANUAL DIFF FLAG NO
[2024-12-19 10:10] LABS: Hematocrit 42.1 % (37.0-47.0); Hemoglobin 14.3 g/dl (12.0-16.0); Imm Gran Abs Auto 0.02 X10*3/uL (0.00-0.03); Imm Gran Pct Auto 0.3 % (0.0-0.4); Lymphocytes Absolute Auto 1.7 X10*3/uL (1.2-4.9); Mean Corpuscular HGB Conc 34.0 g/dl (31.0-35.0); Mean Corpuscular Hemoglobin 31.2 pg (27.0-33.0); Mean Corpuscular Volume 91.9 fL (80.0-98.0); NRBC Abs Auto 0.000 X10*3/uL (0.0-0.012); NRBC Pct Auto 0.0 /100WBC (0.0-0.2); Platelet Count 316 X10*3/uL (160-400); Red Blood Count 4.58 X10*6/uL (4.20-5.50); White Blood Count 6.3 X10*3/uL (4.8-10.8)
[2024-12-19 10:22] LABS: Alanine Aminotransferase 26 U/L (0-31); Albumin Level 4.3 g/dL (3.5-5.0); Alkaline Phosphatase 103 U/L (39-117); Anion Gap 12 (12-20); Aspartate Amino Transferase 30 U/L (5-31); Blood Urea Nitrogen 13 mg/dL (9-16); Calcium 9.2 mg/dL (8.4-10.2); Carbon Dioxide 26 mmol/L (22-29); Chloride 104 mmol/L (96-108); Cholesterol 218 mg/dL (<200); Estimated Glomerular Filt Rate > 60; HDL Cholesterol 58 mg/dL (>40); Magnesium 2.0 mg/dL (1.6-2.6); Potassium 4.1 mmol/L (3.3-5.1); Sodium 138 mmol/L (135-145); Total Protein 7.2 g/dL (6.5-8.0); Triglycerides 177 mg/dL (<150)
[2024-12-19 10:31] LABS: Hemoglobin A1C 225.5710 umol/L; Total Hemoglobin (HGBA1C) 3743.2885 umol/L
== END 2024-12-19 06:26 | disposition home or self-care (01) ==
LOC: HO.HMGCLDS 06:25
PROVIDERS: PCP Internal Medicine; Visit Provider Internal Medicine
DX: E11.65 Type 2 diabetes mellitus with hyperglycemia (principal); E66.09 Other obesity due to excess calories; E78.5 Hyperlipidemia, unspecified; Z68.33 Body mass index [BMI] 33.0-33.9, adult
CPT/HCPCS: 36415; 80053; 80061; 83036; 83735; 85025

== ENCOUNTER 2024-12-27 09:18 | Outpatient (AMB) | payer MEDICARE, SELFPAY ==
--- OUTSIDE RECORDS SUMMARY | 2023-11-02 05:00 | XMS_ITS ---
Author Organization [facility] Address [address] [place] [address] Care Team Providers Care Media Relations Coordinator Name Role Phone Robel LENNON, Carlos Primary Care Provider UnavailSilverio Fuller Unavailable [phone] Encounters Encounter Location Date Provider Diagnosis [address] [address] 11/02/2023 Silverio Zambrano Plan Of Treatment Next Appt Details Provider Name:Silverio Zambrano , 07/27/2025 01:00:00 PM, [address] [place] [address], [phone], Progress Notes * Ioana ADEN LDOB:1955 (69 yo F)Acc No.[id number]:11/02/2023 Progress Note Patient: Ioana PURVIS Provider: Kate Zambrano DPM :1955 A ge:68 Y S ex:Female Date:11/02/2023 [address] [id number] Pcp:Carlos Huston MD Subjective: * Chief Complaints: [...] 11/02/2023 Generated for Tori perkins/Bibiana/Delroy on: 0 12/27/2024 10:03 AM EDT
--- OUTSIDE RECORDS SUMMARY | 2024-05-02 05:00 | XMS_ITS ---
Author Organization [facility] Address [address] [place] [address] Care Team Providers Care Carrier Washer Name Role Phone Robel LENNON, Carlos Primary Care Provider UnavailSilverio Fuller Unavailable [phone] Encounters Encounter Location Date Provider Diagnosis [address] [address] 05/02/2024 Silverio Zambrano Plan Of Treatment Next Appt Details Provider Name:Silverio Zambrano , 07/27/2025 01:00:00 PM, [address] [place] [address], [phone], Progress Notes * Ioana ADEN LDOB:1955 (69 yo F)Acc No.[id number]:05/02/2024 Progress Note Patient: Ioana PURVIS Provider: Kate Zambrano DPM :1955 A ge:68 Y S ex:Female Date:05/02/2024 Address: [address] [place] Pcp:Carlos Huston MD Subjective: * Chief Complaints: [...] 0 05/02/2024 Generated for Tori perkins/Bibiana/Delroy on: 0 12/27/2024 10:02 AM EDT
[2024-12-27 09:21] VITALS: BP 122/80; PULSE 77; O2SAT 98; BMI 33.8
--- NOTE | 2024-12-27 09:21 | A.OFFPC_ITS ---
Vital Signs 12/27/24 09:21 Height 5 ft 1 in Weight 179 lb BMI 33.8 BP 122/80 Blood Pressure Location Lt brachial Position Sitting Pulse 77 Pulse Source Pulse Oximeter Pulse Oximetry (%) 98 Oxygen Delivery Method Room Air Intake Visit Reasons: 6m f/u Allergies acetaminophen (Percocet) Adverse Reaction (Unknown, Verified 12/27/24 09:21) N/V oxycodone (Percocet) Adverse Reaction (Unknown, Verified 12/27/24 09:21) N/V Medication List - Last Reconciled 12/27/24 by Carlos Huston MD blood sugar diagnostic ([employer] Elements Ultra Test strips) Use to check fasting blood sugar daily blood-glucose meter ([employer] Ultra2 Meter) Use to check fasting blood sugar daily clonazepam (Klonopin) 0.5 mg PO DAILY PRN 30 days escitalopram oxalate (Lexapro) 5 mg PO DAILY glipizide 5 mg PO BID lancets (OneTouch Delica Plus Lancet) Test blood sugar once a day magnesium gluconate 500 mg PO ONCE potassium gluconate 595 mg PO DAILY Tobacco use date assessed: 09/26/24 Fall risk assessment: No Falls in past year Last assessed Fall Risk: 12/27/24 Dental Screening Dental Screen Date: 09/26/24 HPI 6m f/u HPI Details The patient is a 69-year-old female presenting with management of diabetes and evaluation of associated symptoms. Diabetes: - Blood glucose measured at 166 mg/dL th is morning, with limited frequency of self-monitoring due to a shortage of testing supplies. - Hemoglobin A1c improved from 9.4% to 7 .7% over the review period. - Previously noted as unmanaged due to s tress, dietary changes from cruising, and family history of diabetes. Mood: - The patient is taking escitalopram 5 m g daily. - Reports occasional use of clonazepam, approximately three times since the last refill. Headaches: - Experiences occasional headaches poten tially linked to high sodium intake, particularly post-dining at restaurants, with no regular treatment specified. 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 - Reports dietary management challenges, occasional high sodium meals - Notes family planning distress during brother's Family History: - Family history of diabetes Diagnostic Results: - Labs: Hemoglobin A1c 7.7%, triglycerid es 177 mg/dL, LDL 125 mg/dL - Electrolytes and kidney functions were reported as normal - CBC within normal limits Problem List - Type 2 Diabetes Mellitus - Generalized Anxiety Disorder - Depression with reported mood stabiliz ation on current treatment - Occasional Headaches potentially relat ed to dietary intake - obesity with BMI of 33.8 Patient Instructions - Continue current dosage of escitalopra m and glipizide - [place] clonazepam for sporadic use - Resume regular blood glucose monitorin g when supplies are renewed - Consider dietary adjustments to manage sodium intake Follow-up 4 months Review of Systems - General: No fever no chills - Neurological: No headaches no dizziness - Ear nose throat: No sore throat no hearing difficulty no ear pain - Cardiovascular: No syncope, no chest pain, no palpitations - Gastrointestinal: No nausea vomiting or diarrhea - Endocrine: No polyuria polydipsia no heat intolerance - Genitourinary: No dysuria , no blood in urine Physical Exam General: No acute distress HEENT: No acute findings Neck: Supple Respiratory system: Lungs are clear, able to talk in full sentences, no audible wheeze Cardiovascular: S1-S2 regular in rate and rhythm, heart is fine Gastrointestinal: No pain Extremities: No swelling or pain [employer]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 Maternal Grandmother No problems noted. Paternal Grandfather No problems noted. Paternal Grandmother No problems noted. Brother No problems noted. Brother No problems noted. Brother No problems noted. Son No problems noted. Daughter No problems noted. Sister Melanoma Sister No problems noted. Sister No problems noted. Sister No problems noted. Sister No problems noted. Other Mental health disorder Social History Housing: House Alcohol intake: current Alcohol intake frequency: a few times a week Alcohol type: beer and wine Patient Tobacco Use Status: Former Tobacco user e-Cigarette/Vaping Use: Never Used Second Hand Smoke Exposure: No Substance Use Type: Marijuana service: No Current occupational status: retired Cognitive needs: No Hearing needs: No Vision needs: Yes (GLASSES) Questionnaire Thrive Questionnaire Date Thrive assessed: 08/30/24 I am a: Patient What is your living situation today?: I have a steady place to live Within the past 12 months, did the food you bought not last and you didn't have the money to get more?: Never true Within the past 12 months, did you worry whether your food would run out before you got money to buy more?: Never true Do you have trouble paying for medicines?: No Do you have trouble getting transportation to medical appointments?: No Do you have trouble paying your heating and electricity bill?: No Do you have trouble taking care of your child, family member or friend?: No Do you have trouble with day-to-day activities such as bathing, preparing meals, shopping, managing finances, etc.?: No Are you currently unemployed and looking for a job?: No Are you interested in more education?: No Please select the resources that you would like help with: None Currently or been in a relationship where the following occur: No concerns reported THRIVE Score: 0 ANJELICA-7 AMB Questionnaire ANJELICA-7 Date ANJELICA - 7 assessed: 09/26/24 Source: Developed by Drs. Austin Hastings, Renetta Parsons, Brian Casey and colleagues, with an educational wayne from [employer]. Physical exam (Primary Care) Vital Signs: Last Vital Signs Pulse 77 12/27/24 09:21 BP 122/80 12/27/24 09:21 Pulse Ox 98 12/27/24 09:21 Oxygen Delivery Method Room Air 12/27/24 09:21 BMI result Body Mass Index 33.8 Tobacco/Smoking Status: Tobacco use Status Tobacco use date assessed 09/26/24 12/27/24 09:22 Patient Tobacco Use Status Former Tobacco user 12/27/24 09:22 e-Cigarette/Vaping Use Never Used 12/27/24 09:22 Thrive Assessment: Date of Thrive Assessment Date Thrive assessed 08/30/24 12/27/24 09:22 Currently or been in a relationship where the following occur: No concerns reported Coding Level of Care Code Est Pt Level 4 (05706) Complex EM visit Add On G2211 Diagnoses Type 2 diabetes mellitus without complication, without long-term current use of insulin E11.9 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 type: type 2 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 terminal superintendent insulin use: without terminal superintendent use 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 complication status: without complication Panic attacks F41.0 Anxiety, generalized F41.1 Class 1 obesity due to excess calories with serious comorbidity and body mass index (BMI) of 33.0 to 33.9 in adult E66.09; Z68.33 Obesity classification: adult class 1 (BMI 30 - 34.9) Serious obesity comorbidity presence: with serious comorbidity Body mass index: BMI 33.0-33.9 Lipid disorder E78.9 Generalized headaches R51.9 Assessment & Plan Assessment & Plan (1) 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: Code(s): E11.9 - Type 2 diabetes mellitus without complications Category: Medical Qualifiers: 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 type: type 2 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 terminal superintendent insulin use: without terminal superintendent use 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 complication status: without complication Qualified Code(s): E11.9 - Type 2 diabetes mellitus without complications (2) Panic attacks: Code(s): F41.0 - Panic disorder [episodic paroxysmal anxiety] Category: Medical (3) Anxiety, generalized: Code(s): F41.1 - Generalized anxiety disorder Category: Medical (4) Obesity due to excess calories: Code(s): E66.09 - Other obesity due to excess calories Category: Medical Qualifiers: Obesity classification: adult class 1 (BMI 30 - 34.9) Serious obesity comorbidity presence: with serious comorbidity Body mass index: BMI 33.0-33.9 Qualified Code(s): E66.09 - Other obesity due to excess calories; Z68.33 - Body mass index [BMI] 33.0-33.9, adult (5) Lipid disorder: Code(s): E78.9 - Disorder of lipoprotein metabolism, unspecified Category: Medical (6) Generalized headaches: Code(s): R51.9 - Headache, unspecified Category: Medical Plan The patient is a 69-year-old female presenting with management of diabetes and evaluation of associated symptoms. Diabetes: - Blood glucose measured at 166 mg/dL this morning, with limited frequency of self-monitoring due to a shortage of testing supplies. - Hemoglobin A1c improved from 9.4% to 7.7% over the review period. - Previously noted as unmanaged due to stress, dietary changes from cruising, and family history of diabetes. Mood: - The patient is taking escitalopram 5 mg daily. - Reports occasional use of clonazepam, approximately three times since the last refill. Headaches: - Experiences occasional headaches potentially linked to high sodium intake, particularly post-dining at restaurants, with no regular treatment specified. 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 - Reports dietary management challenges, occasional high sodium meals - Notes family planning distress during brother's Family History: - Family history of diabetes Diagnostic Results: - Labs: Hemoglobin A1c 7.7%, triglycerides 177 mg/dL, LDL 125 mg/dL - Electrolytes and kidney functions were reported as normal - CBC within normal limits Problem List - Type 2 Diabetes Mellitus - Generalized Anxiety Disorder - Depression with reported mood stabilization on current treatment - Occasional Headaches potentially related to dietary intake - obesity with BMI of 33.8 Patient Instructions - Continue current dosage of escitalopram and glipizide - [place] clonazepam for sporadic use - Resume regular blood glucose monitoring when supplies are renewed - Consider dietary adjustments to manage sodium intake Follow-up 4 months Medications: Refilled glipizide 5 mg PO BID 180 tabs 0RF
--- OUTSIDE RECORDS SUMMARY | 2024-12-27 10:03 | XMS_ITS | Patient Health Record ---
Author Organization [facility] Address [address] [place] [address] Care Team Providers Care Tugger Operator Name Role Phone Robel LENNON, Asma Primary Care Provider Austin Hu [phone] Reason For Referral No Information Medications Medication [...] Problem Status W/U Status Risk Notes Problem [id number] Encounter for screening for malignant neoplasm of colon (Z12.11) Active confirmed Problem [id number] Preprocedural examination (Z01.818) Active confirmed Plan Of Treatment Future Test Test Name Order Date COLONOSCOPY 05/06/2017 Insurance Providers Payer Name Payer Address Payer Phone Subscriber Number Group Number Insured Name Patient Relationship to Insured Coverage Start Date Coverage End Date [facility] [address] [place] [address] [phone] [id number] [facility] [place] Self - patient is the insured Medical (General) History Medical History History ICD Code Denies OR,DM,CVA,Lung disease,renal dise ase Arthritis Reports a negative screening coilonoscop y at age 48 at [facility] Surgical History Surgery Date(Month/Year) BTL 1976 C-spine fusion 2002
--- OUTSIDE RECORDS SUMMARY | 2024-12-27 10:03 | XMS_ITS | Patient Health Record ---
Author Organization [facility] Address [address] [address] Care Team Providers Care Topology Teacher Name Role Phone Robel LENNON, [facility] Primary Care Provider Silverio Mckeon Unavailable [phone] Allergies Allergen (clinical drug ingredient) Drug/Non Drug [...] Vaccine Route Administration Date Status Comme nts Influenza Unknown 01/24/2022 Administered COVID-19 Moderna Vaccine Unknown 01/13/2022 Administered 1st dose: 12/04/2000 Moderna 2nd dose: 07/17/20 Moderna 3rd dose:02/20/2021 Moderna 4th dose: 07/23/2021 Pfizer Social History Tobacco Use: Social History Observation [...] Problem Acquired hammer toe of right foot (817363590481 9105) Other hammer toe(s) (acquired), right foot (M20.41) Active confirmed Problem Acquired hammer toe of left foot (042090433208 9103) Other hammer toe(s) (acquired), left foot (M20.42) Active confirmed Problem Type 2 diabetes mellitus without complication (E11.9) Active confirmed Vital Signs Blood pressure diastolic 80 mm Hg 07/25/2024 Height 5 ft 0 in in 07/25/2024 Blood pressure systolic 130 mm Hg 07/25/2024 Weight 177 lbs 07/25/2024 BMI 34.56 kg/m2 07/25/2024 Procedures Procedure Date Ordered Date Performed Result Body Sit e 14466-PMPRVJJ NAIL, 6 OR MORE 07/25/2024 N/A Encounters Encounter Location Date Provider Diagnosis [facility] [address] [address] 07/25/2024 Silverio Zambrano Type 2 diabetes mellitus without complication E11.9 ; Pain in right toe(s) M79.674 ; Tinea unguium B35.1 ; Pain in left toe(s) M79.675 ; Other hammer toe(s) (acquired), right foot M20.41 and Other hammer toe(s) (acquired), left foot M20.42 [facility] [address] [address] 04/24/2024 Silverio Zambrano Assessments Encounter Date Diagnosis [...] Treatment Pending Test Test Name Order Date [id number] NAIL, 6 OR MORE 08/04/2022 [id number] NAIL, 6 OR MORE 11/03/2022 [id number] NAIL, 6 OR MORE 05/04/2023 [id number] NAIL, 6 OR MORE 07/25/2024 [id number] Plate 11/03/2022 Next Appt Details Provider Name:Silverio Zambrano , 07/27/2025 01:00:00 PM, [address] [place], [address], Insurance Providers Payer Name Payer Address Payer Phone Subscriber Number Group Number Insured Name Patient Relationship to Insured Coverage Start Date Coverage End Date [employer] 65 Medicare Preferred [address] [place] [address] [id number] Ioana Kinsey Self - patient is the insured Medical (General) History Medical History History ICD Code Anxiety Arthritis Back,Hip,and Knee pain Broken bones neck type II diabetes Headaches/Migraines Measles Mumps Joint implants/screws neck Surgical History Surgery Date(Month/Year) tubal ligation, b/l 1976 Tooth extraction fusion of cervical spine 2002
== END 2024-12-27 12:23 | disposition home or self-care (01) ==
LOC: HO.HMCC 09:19
PROVIDERS: PCP Internal Medicine; Visit Provider Internal Medicine
DX: E11.9 Type 2 diabetes mellitus without complications (principal); F41.0 Panic disorder [episodic paroxysmal anxiety]; F41.1 Generalized anxiety disorder; E66.09 Other obesity due to excess calories; Z68.33 Body mass index [BMI] 33.0-33.9, adult; E78.9 Disorder of lipoprotein metabolism, unspecified; R51.9 Headache, unspecified

== ENCOUNTER → 2024-12-27 09:18 | Outpatient (BNVA) | payer MEDICARE, SELFPAY | PROVIDERS: PCP Internal Medicine; Visit Provider Internal Medicine | DX: E11.9 Type 2 diabetes mellitus without complications (principal); F41.0 Panic disorder [episodic paroxysmal anxiety]; F41.1 Generalized anxiety disorder; E78.9 Disorder of lipoprotein metabolism, unspecified; R51.9 Headache, unspecified; E66.09 Other obesity due to excess calories; Z68.33 Body mass index [BMI] 33.0-33.9, adult | CPT/HCPCS: 99212 ==

== ENCOUNTER 2025-02-28 07:23 | Outpatient (REF) | payer MEDICARE, SELFPAY ==
--- OUTSIDE RECORDS SUMMARY | 2023-11-02 04:00 | XMS_ITS ---
Author Organization [facility] Address [address] [place] [address] Care Team Providers Care Home Housekeeper Name Role Phone Robel LENNON, Carlos Primary Care Provider UnavailSilverio Fuller Unavailable [phone] Encounters Encounter Location Date Provider Diagnosis [address] [address] 11/02/2023 Silverio Zambrano Plan Of Treatment Next Appt Details Provider Name:Silverio Zambrano , 07/27/2025 01:00:00 PM, [address] [place] [address], [phone], Progress Notes * Ioana ADEN LDOB:1955 (69 yo F)Acc No.[id number]:11/02/2023 Progress Note Patient: Ioana PURVIS Provider: Kate Zambrano DPM :1955 A ge:68 Y S ex:Female Date:11/02/2023 [address] [id number] Pcp:Carlos Huston MD Subjective: * Chief Complaints: * * Medical History: Objective: * Vitals: Assessment: Plan: * Treatment: * Images: * The named appointment provid er may or may not be the originator of this progress note, and it is not deemed complete until electronically signed by the appointment provider. Sign off status: Pending * Provider: Kate Zambrano DPM Date: 0 11/02/2023 Generated for Tori perkins/Bibiana/Delroy on: 1 04/30/2024 07:25 AM EST
--- OUTSIDE RECORDS SUMMARY | 2024-05-02 04:00 | XMS_ITS ---
Author Organization [facility] Address [address] [place] [address] Care Team Providers Care Outreach Associate Name Role Phone Robel LENNON, Carlos Primary Care Provider UnavailSilverio Fuller Unavailable [phone] Encounters Encounter Location Date Provider Diagnosis [address] [address] 05/02/2024 Silverio Zambrano Plan Of Treatment Next Appt Details Provider Name:Silverio Zambrano , 07/27/2025 01:00:00 PM, [address] [place], [address], Progress Notes * Ioana ADEN LDOB:1955 (69 yo F)Acc No.[id number]:05/02/2024 Progress Note Patient: Ioana PURVIS Provider: Kate Zambrano DPM :1955 A ge:68 Y S ex:Female Date:05/02/2024 [address] [place] Pcp:Carlos Huston MD Subjective: * Chief Complaints: * * Medical History: Objective: * Vitals: Assessment: Plan: * Treatment: * Images: * The named appointment provid er may or may not be the originator of this progress note, and it is not deemed complete until electronically signed by the appointment provider. Sign off status: Pending * Provider: Kate Zambrano DPM Date: 0 05/02/2024 Generated for Tori perkins/Bibiana/Delroy on: 1 04/30/2024 07:25 AM EST
--- OUTSIDE RECORDS SUMMARY | 2025-02-28 07:26 | XMS_ITS | Patient Health Record ---
[facility] Address [address] [place] [address] Care Team Providers Care Solvent Process Extractor Operator Name Role Phone Robel LENNON, [facility] Primary [facility] Provider Silverio Mckeon Unavailable [phone] Allergies Allergen (clinical drug ingredient) Drug/Non Drug Allergy documented on EMR Reaction Allergy Type Onset Date Status acetaminophen / oxycodone Percocet Sensitive Drug Allergy Active acetaminophen Acetaminophen Unknown Drug Allergy Active Gluten Gluten Sensitive Allergy Active oxycodone Oxycodone Unknown Drug Allergy Active Reason For Referral No Information Medications Medication [...] Problem Acquired hammer toe of right foot (060014280633089 5) Other hammer toe(s) (acquired), right foot (M20.41) Active confirmed Problem Acquired hammer toe of left foot (399318201256831 3) Other hammer toe(s) (acquired), left foot (M20.42) Active confirmed Problem Type II diabetes mellitus without complication (700701303) Type 2 diabetes mellitus without complication (E11.9) Active confirmed Vital Signs Blood pressure diastolic 80 mm Hg 07/25/2024 Height 5 ft 0 in in 07/25/2024 Blood pressure systolic 130 mm Hg 07/25/2024 Weight 177 lbs 07/25/2024 BMI 34.56 kg/m2 07/25/2024 Procedures Procedure Date Ordered Date Performed Result Body Sit e [id number] NAIL, 6 OR MORE 07/25/2024 N/A Encounters Encounter Location Date Provider Diagnosis [facility] [address] 07/25/2024 Silverio Zambrano Type 2 diabetes mellitus without complication E11.9 ; Pain in right toe(s) M79.674 ; Tinea unguium B35.1 ; Pain in left toe(s) M79.675 ; Other hammer toe(s) (acquired), right foot M20.41 and Other hammer toe(s) (acquired), left foot M20.42 [facility] [address] [address] 04/24/2024 Silverio Zambrano Assessments Encounter Date Diagnosis [...] Treatment Pending Test Test Name Order Date [id number] NAIL, 6 OR MORE 08/04/2022 [id number] NAIL, 6 OR MORE 11/03/2022 [id number] NAIL, 6 OR MORE 05/04/2023 [id number] NAIL, 6 OR MORE 07/25/2024 [id number]-Abklvyli Plate 11/03/2022 Next Appt Details Provider Name:Silverio Zambrano , 07/27/2025 01:00:00 PM, [address] [place], [address], Insurance Providers Payer Name Payer Address Payer Phone Subscriber Number Group Number Insured Name Patient Relationship to Insured Coverage Start Date Coverage End Date [facility] 65 Medicare Preferred [address] [place] [address] [id number] Ioana Kinsey Self - patient is the insured Medical (General) History Medical History History ICD Code Anxiety Arthritis Back,Hip,and Knee pain Broken bones neck type II diabetes Headaches/Migraines Measles Mumps Joint implants/screws neck Surgical History Surgery Date(Month/Year) tubal ligation, b/l 1976 Tooth extraction fusion of cervical spine 2002
--- OUTSIDE RECORDS SUMMARY | 2025-02-28 07:26 | XMS_ITS | Patient Health Record ---
Author Organization [facility] Address [address] [place] [address] Care Team Providers Care Bullard Operator Name Role Phone Robel LENNON, [facility] Primary Care Provider Austin Hu [phone] Reason For Referral No Information Medications Medication [...] Problem Status W/U Status Risk Notes Problem Screening for malignant neoplasm of colon (457528917) Encounter for screening for malignant neoplasm of colon (Z12.11) Active confirmed Problem Preprocedural examination (826485618498825) Preprocedural examination (Z01.818) Active confirmed Plan Of Treatment Future Test Test Name Order Date COLONOSCOPY 05/06/2017 Insurance Providers Payer Name Payer Address Payer Phone Subscriber Number Group Number Insured Name Patient Relationship to Insured Coverage Start Date Coverage End Date [facility] [address] [place] [address] [id number] [facility] TYRELL Self - patient is the insured Medical (General) History Medical History History ICD Code Denies VT,DM,CVA,Lung disease,renal dise ase Arthritis Reports a negative screening coilonoscop y at age 48 at [facility] Surgical History Surgery Date(Month/Year) BTL 1976 C-spine fusion 2002
== END 2025-02-28 07:24 | disposition home or self-care (01) ==
LOC: HO.MAMMO 07:23
PROVIDERS: PCP Internal Medicine; Visit Provider Internal Medicine
DX: Z12.31 Encounter for screening mammogram for malignant neoplasm of breast (principal)
CPT/HCPCS: 77063; 77067

== ENCOUNTER → 2025-02-28 07:30 | Outpatient (BNV) | payer MEDICARE, SELFPAY | PROVIDERS: PCP Internal Medicine; Visit Provider Radiology Body Imaging | DX: Z12.31 Encounter for screening mammogram for malignant neoplasm of breast (principal) | CPT/HCPCS: 77063; 77067 ==